=== PATIENT | female | born 1970 | race Caucasian/White ===

== ENCOUNTER 2021-12-10 10:53 | Outpatient (REF) | payer OTHER, SELFPAY ==
--- NOTE | ~2021-12-10 | XR_ITS ---
EXAMINATION: XR FINGER, LEFT finger CLINICAL INFORMATION: Pain in the joints of the left hand COMPARISON: None TECHNIQUE: AP view left hand and 2 additional views of the left index finger. FINDINGS: No evidence for acute bony fracture or dislocation. No distinct erosive process seen. The MCP joints are maintained. There is minimal spurring at the first CMC joint. The IP joints are maintained. Area of prominent calcification identified just ventral to the base of proximal phalanx and the MCP joint of the second digit. Dimensions 1.2 x 0.8 cm. Finding is nonspecific but can be seen with tumoral calcinosis, myositis ossificans, and hyperparathyroidism in the appropriate clinical circumstances. CT evaluation and rheumatologic evaluation may be helpful toward further clarification. XR/XR finger LT min 2V IMPRESSION: No acute fracture or dislocation. Prominent calcification ventral to the base of proximal phalanx and the MCP joint of the second digit. Differential diagnosis as noted above. CT evaluation and rheumatologic evaluation may be helpful toward further clarification.
[2021-12-10 13:56] LABS: MANUAL DIFF FLAG NO
[2021-12-10 14:02] LABS: Basophils Percent Auto 0.5 % (0-2); Eosinophils Absolute Auto 0.1 X10*3/uL (0.0-0.4); Eosinophils Percent Auto 1.1 % (0-4); Hematocrit 41.8 % (37.0-47.0); Imm Gran Abs Auto 0.03 X10*3/uL (0.00-0.03); Imm Gran Pct Auto 0.4 % (0.0-0.4); Lymphocytes Absolute Auto 2.7 X10*3/uL (1.2-4.9); Mean Corpuscular HGB Conc 33.5 g/dl (31.0-35.0); Mean Corpuscular Volume 86.7 fL (80.0-98.0); Mean Platelet Volume 10.9 fL (9.4-12.3); Monocytes Absolute Auto 0.6 X10*3/uL (0.1-1.2); Monocytes Percent Auto 6.8 % (2-11); Neutrophils Absolute Auto 4.6 x10*3/uL (2.0-8.3); Neutrophils Percent Auto 57.2 % (45-73); Platelet Count 250 X10*3/uL (160-400); Red Blood Count 4.82 X10*6/uL (4.20-5.50); Red Cell Distribution Width 12.3 % (11.0-16.0)
[2021-12-10 14:09] LABS: Calcium 9.5 mg/dL (8.4-10.2)
[2021-12-10 14:14] LABS: Uric Acid 4.3 mg/dL (2.4-5.7)
== END 2021-12-10 10:54 | disposition home or self-care (01) ==
LOC: HO.HMGCLDS 10:53
PROVIDERS: PCP Internal Medicine; Visit Provider Physician Assistant
DX: M25.541 Pain in joints of right hand (principal); M77.9 Enthesopathy, unspecified
CPT/HCPCS: 36415; 73140; 82310; 84550; 85025

== ENCOUNTER 2022-05-21 07:02 | Outpatient (REF) | payer BC, SELFPAY ==
[2022-05-21 07:21] LABS: MANUAL DIFF FLAG NO
[2022-05-21 08:06] LABS: Basophils Percent Auto 0.3 % (0-2); Eosinophils Absolute Auto 0.1 X10*3/uL (0.0-0.4); Eosinophils Percent Auto 1.3 % (0-4); Hematocrit 45.4 % (37.0-47.0); Hemoglobin 14.9 g/dl (12.0-16.0); Imm Gran Abs Auto 0.01 X10*3/uL (0.00-0.03); Imm Gran Pct Auto 0.2 % (0.0-0.4); Lymphocytes Absolute Auto 2.6 X10*3/uL (1.2-4.9); Lymphocytes Percent Auto 41.4 % (20-40); Mean Corpuscular HGB Conc 32.8 g/dl (31.0-35.0); Mean Corpuscular Hemoglobin 28.1 pg (27.0-33.0); Mean Corpuscular Volume 85.7 fL (80.0-98.0); Mean Platelet Volume 10.6 fL (9.4-12.3); Monocytes Absolute Auto 0.4 X10*3/uL (0.1-1.2); Monocytes Percent Auto 6.9 % (2-11); Neutrophils Absolute Auto 3.2 x10*3/uL (2.0-8.3); Neutrophils Percent Auto 49.9 % (45-73); Platelet Count 255 X10*3/uL (160-400); White Blood Count 6.4 X10*3/uL (4.8-10.8)
[2022-05-21 09:49] LABS: Alanine Aminotransferase 30 U/L (0-31); Albumin Level 4.4 g/dL (3.5-5.0); Alkaline Phosphatase 74 U/L (39-117); Anion Gap 14 (12-20); Aspartate Amino Transferase 21 U/L (5-31); Bilirubin Total 0.7 mg/dL (0.0-1.0); Blood Urea Nitrogen 9 mg/dL (9-16); Calcium 9.2 mg/dL (8.4-10.2); Carbon Dioxide 26 mmol/L (22-29); Chloride 107 mmol/L (96-108); Cholesterol 163 mg/dL; Estimated Glomerular Filt Rate > 60; Glucose Fasting 82 mg/dL (60-99); HDL Cholesterol 56 mg/dL; LDL Cholesterol Calculated 82 mg/dl; Potassium 4.2 mmol/L (3.3-5.1); Sodium 143 mmol/L (135-145); TSH reflex Free T4 3.07 uIU/mL (0.32-4.0); Total Protein 6.9 g/dL (6.5-8.0); Triglycerides 125 mg/dL
== END 2022-05-21 07:03 | disposition home or self-care (01) ==
LOC: HO.LAB 07:02
PROVIDERS: PCP Internal Medicine; Visit Provider Internal Medicine
DX: Z00.00 Encounter for general adult medical examination without abnormal findings (principal)
CPT/HCPCS: 36415; 80053; 80061; 84443; 85025

== ENCOUNTER → 2022-08-05 11:15 | Outpatient (BNVA) | payer BC, SELFPAY | PROVIDERS: PCP Internal Medicine; Visit Provider Internal Medicine ==

== ENCOUNTER 2022-09-16 14:57 | Outpatient (AMB) | payer BC, SELFPAY ==
--- NOTE | 2022-09-16 14:57 | MHC.OFFVIS ---
Intake Intake Visit Reasons: 6 week fu Intake Note: CC: Bloating still - her regimen she started was even worse. She was having loose stools about 6 times a day. She had to stop taking the Metamucil because it was too much. She had to mandrel puller on the side of the road to vomit because her stomach could not handle it. Allergies acetaminophen [From PERCOCET] Allergy (Unknown, Unverified 09/16/22 14:57) Hives codeine [From Tylenol-Codeine #3] Allergy (Unknown, Unverified 09/16/22 14:57) hives metronidazole [From FLAGYL] Allergy (Unknown, Unverified 09/16/22 14:57) Hives oxycodone [From PERCOCET] Allergy (Unknown, Verified 09/16/22 14:57) Hives Codeine Allergy (Unknown, Uncoded 09/16/22 14:57) Hives HPI HPI Comments History of Present Illness Details 52 y.o F who is here for following issues: 08/05/22: Chronic diarrhea: has had this for almost 20 years. Had a colonoscopy at that time and was told was probably post-CCY diarrhea and was started on cholestyramine. However with cholestyramine she now fluctuates between constipation and diarrhea with occ fecal incontinence. The stool itself is brown but does note occasional red blood on wiping which she surmises is from hemorrhoids. Bloating: For the past 2 months has also been noticing bloating and distention postprandially. Happens with any food including just meat. Assoc with nausea but not vomiting. Has also noticed increased belching with this which is predominantly at nigh time - has to sleep in a reclined position to avoid heartburn. Takes omeprazole 20mg daily in the AM. 09/16/22: Minimal response to Cipro. Diarrhea was also not controlled by loperamide despite taking up to 6 times a day. Went back to cholestyramine after a few days. PFSH Surgical History Hx of cholecystectomy Hx of colonoscopy Social History Housing: Apartment Patient Tobacco Use Status: Never used Tobacco e-Cigarette/Vaping Use: Never Used Current occupational status: employed Cognitive needs: No Hearing needs: No Vision needs: Yes Review of Systems Const All systems reviewed & are unremarkable except as noted in HPI and below Physical Exam video visit: GEn appear: NAD Chest: no overt resp distress Abd: non distended Neuro: Awake alert responding appropriately Assessment & Plan Assessment & Plan (1) Bloating: Code(s): R14.0 - Abdominal distension (gaseous) (2) Diarrhea: Code(s): R19.7 - Diarrhea, unspecified (3) Bright red rectal bleeding: Code(s): K62.5 - Hemorrhage of anus and rectum Plan 1. Chronic nonbloody diarrhea: Ddx include post-CCY diarrhea, malabsorption including SIBO, celiac, IBD, microscopic colitis, chronic infection. Could not tolerate going off cholestyramine. Plan: - Cont cholestyramine - Reminded to get labs done for CBC, CRP, TSH, celiac serology - Will set her up for EGD/colo. Split PEG prep instructions reviewed and a handout will be mailed out as well. 2. Intermittent rectal bleeding: Likely rectal outlet bleeding. Plan: Check CBC, iron levels [place] as above Follow up after scopes. Medications: New peg 3350-electrolytes 236-22.74-6.74 -5.86 gram (Golytely) as per split prep instructions, until fecal effluent is clear 240 mL PO Q10M 4,000 mL 0RF colonoscopy Telehealth Telehealth Location of provider rendering services: practice address Location of patient: address on file Patient Identification confirmed using: Name, : Yes Telehealth method: video Patient verbally consented to treatment: Yes Patient verbally consented to billing insurance company: Yes Patient informed of any privacy concerns related to visit: Yes Minutes spent on Phone/Video with Pt.: 15 Coding Level of Care Code Est Pt Level 4 (26167) Diagnoses Bloating R14.0 Diarrhea R19.7 Bright red rectal bleeding K62.5
== END 2022-09-16 16:02 | disposition home or self-care (01) ==
LOC: HO.HGI 14:57
PROVIDERS: PCP Internal Medicine; Visit Provider Internal Medicine
DX: R14.0 Abdominal distension (gaseous) (principal); R19.7 Diarrhea, unspecified; K62.5 Hemorrhage of anus and rectum
CPT/HCPCS: 99214

== ENCOUNTER → 2022-09-16 14:57 | Outpatient (BNVA) | payer BC, SELFPAY | PROVIDERS: PCP Internal Medicine; Visit Provider Internal Medicine ==

== ENCOUNTER 2022-09-26 07:38 | Outpatient (REF) | payer BC, SELFPAY ==
[2022-09-26 08:05] LABS: Hematocrit 42.9 % (37.0-47.0); Hemoglobin 14.3 g/dl (12.0-16.0); Mean Corpuscular HGB Conc 33.3 g/dl (31.0-35.0); Mean Corpuscular Hemoglobin 29.1 pg (27.0-33.0); Mean Corpuscular Volume 87.2 fL (80.0-98.0); Mean Platelet Volume 10.8 fL (9.4-12.3); Platelet Count 211 X10*3/uL (160-400); Red Blood Count 4.92 X10*6/uL (4.20-5.50); Red Cell Distribution Width 12.1 % (11.0-16.0); White Blood Count 6.1 X10*3/uL (4.8-10.8)
[2022-09-26 11:48] LABS: C Reactive Protein 0.58 mg/dL (< or = 0.50); Iron 103 mcg/dL (30-160); Percent Iron Saturation 35 % (15-50); Total Iron Binding Capacity 293 mcg/dL (228-428); Unsaturated Iron Binding 190 ug/dL
[2022-09-26 12:02] LABS: Ferritin 326 ng/mL (10-250); TSH reflex Free T4 2.74 uIU/mL (0.32-4.0)
[2022-09-30 18:54] LABS: Immunoglobulin A 178 mg/dL (47-310)
[2022-09-30 22:35] LABS: Transglutaminase IgA <1.0 U/mL
== END 2022-09-26 07:39 | disposition home or self-care (01) ==
LOC: HO.LAB 07:38
PROVIDERS: PCP Internal Medicine; Visit Provider Internal Medicine
DX: R19.7 Diarrhea, unspecified (principal); K62.5 Hemorrhage of anus and rectum
CPT/HCPCS: 36415; 82728; 82784; 83540; 84443; 85027; 86140; 86364

== ENCOUNTER 2023-01-06 10:20 | Outpatient (AMB) | payer BC, SELFPAY ==
--- NOTE | 2023-01-06 10:28 | A.OFFPC_ITS ---
Vital Signs 01/06/23 10:32 Height 4 ft 9 in Weight 122 lb BMI 26.4 BP 110/64 Blood Pressure Location Rt brachial Position Sitting Pulse 68 Pulse Source Pulse Oximeter Pulse Oximetry (%) 96 Oxygen Delivery Method Room Air Intake Visit Reasons: Pelvic pain Allergies acetaminophen [From PERCOCET] Allergy (Unknown, Unverified 01/06/23 10:32) Hives codeine [From Tylenol-Codeine #3] Allergy (Unknown, Unverified 01/06/23 10:32) hives metronidazole [From FLAGYL] Allergy (Unknown, Unverified 01/06/23 10:32) Hives oxycodone [From PERCOCET] Allergy (Unknown, Verified 01/06/23 10:32) Hives Codeine Allergy (Unknown, Uncoded 01/06/23 10:32) Hives Medication List - Last Reconciled 01/06/23 by Cher Wallace MD albuterol 90 mcg/actuation mcg inhalation cholestyramine-aspartame 4 gram 4 grams PO DAILY estradiol 1 mg PO DAILY fluticasone propionate 110 mcg/actuation 2 puffs inhalation BID fluticasone propionate 50 mcg/actuation (Flonase Allergy Relief) 1 spray intranasal BID omeprazole 20 mg PO DAILY peg 3350-electrolytes 236-22.74-6.74 -5.86 gram (Golytely) 240 mL PO Q10M Tobacco use date assessed: 04/16/22 HPI Pelvic pain HPI Details Patient complains of pubic bone and right groin pain on and off for few weeks worse when walking longer distance. Patient denies abdominal pain change in bowel habits or urination, fever chills dysuria. She has colonoscopy scheduled for beginning of January. Patient denies any injury. Follows up with brake reliner for left knee osteoarthritis. PFSH Surgical History Hx of cholecystectomy Hx of colonoscopy Social History Housing: Apartment Patient Tobacco Use Status: Never used Tobacco e-Cigarette/Vaping Use: Never Used Current occupational status: employed Cognitive needs: No Hearing needs: No Vision needs: Yes Questionnaire Thrive Questionnaire Date Thrive assessed: 04/16/22 TAMIA-7 AMB Questionnaire TAMIA-7 Date TAMIA - 7 assessed: 04/16/22 Source: Developed by Drs. Niles Rashid, Precious Saenz, Emir Goetz and colleagues, with an educational tom from [employer]. Review of Systems Const All systems reviewed & are unremarkable except as noted in HPI and below Reports no additional complaints Eyes Reports no additional complaints ENT Reports no additional complaints Card Reports no additional complaints Resp Reports no additional complaints GI Reports no additional complaints Reports no additional complaints Physical exam (Primary Care) Vital Signs: Last Vital Signs Pulse 68 01/06/23 10:32 BP 110/64 01/06/23 10:32 Pulse Ox 96 01/06/23 10:32 Oxygen Delivery Method Room Air 01/06/23 10:32 BMI result Body Mass Index 26.4 Tobacco/Smoking Status: Tobacco use Status Tobacco use date assessed 04/16/22 01/06/23 10:32 Patient Tobacco Use Status Never used Tobacco 01/06/23 10:32 e-Cigarette/Vaping Use Never Used 01/06/23 10:32 Thrive Assessment: Date of Thrive Assessment Date Thrive assessed 04/16/22 01/06/23 10:32 Const General: no acute distress Resp Auscultation: clear to auscultation bilaterally Cardio Rhythm: regular rhythm Heart sounds: S1 normal heart sound present and S2 normal heart sound present Back/Spine/Pelvis Other: There is slight tenderness over pubic bone and decreased range of motion in both hips, right more than left, straight leg rising 90 degrees bilaterally Assessment and Plan Assessment & Plan (1) Hip pain, right: Code(s): M25.551 - Pain in right hip Plan: Check x-rays of both hips and pubic bone and PT was recommended but patient declined Orders: Orders XR hip BI w PEL1V Today M25.551 - Pain in right hip Coding Level of Care Code Est Pt Level 3 (26092) Diagnoses Hip pain, right M25.551
[2023-01-06 10:32] VITALS: BP 110/64; PULSE 68; O2SAT 96; BMI 26.4
== END 2023-01-06 11:22 | disposition home or self-care (01) ==
PROVIDERS: PCP Internal Medicine; Visit Provider Internal Medicine
DX: M25.551 Pain in right hip (principal)
CPT/HCPCS: 99213

== ENCOUNTER 2023-01-06 11:02 | Outpatient (REF) | payer BC, SELFPAY ==
--- NOTE | ~2023-01-06 | XR_ITS ---
EXAMINATION: XR BILATERAL HIPS WITH AP PELVIS CLINICAL INFORMATION: Right hip pain. COMPARISON: None available. TECHNIQUE: AP view of the pelvis and AP and frog lateral views of the bilateral hips were obtained. FINDINGS: No fracture. Hip joint spaces are maintained. Alignment is anatomic. Sacroiliac joints and pubic symphysis are normal. No abnormal soft tissue calcifications. There are pelvic phleboliths. XR/XR hip BI w PEL1V IMPRESSION: Normal pelvis and hips.
== END 2023-01-06 11:03 | disposition home or self-care (01) ==
LOC: HO.HMGCX 11:02
PROVIDERS: PCP Internal Medicine; Visit Provider Internal Medicine
DX: M25.551 Pain in right hip (principal)
CPT/HCPCS: 73521

== ENCOUNTER 2023-01-28 12:10 | Day surgery (SDC) | payer BC, SELFPAY ==
[2023-01-24 11:57] VITALS: BMI 26.4
[2023-01-28 12:22] VITALS: BMI 25.8
[2023-01-28] MEDS: Lactated Ringers 1,000 ML 100 ML IVCONT (12:46)
[2023-01-28 12:47] VITALS: BP 118/71; PULSE 84; RESP 16; TEMP 36.4; O2SAT 99
--- NOTE | 2023-01-28 13:18 | MHC.SHP ---
Pre-Procedural Eval Section A Date of Service: 01/28/23 The patient is an INPATIENT: No The History & Physical has been completed within 30 days and I have reviewed it.: No Section B Chief Complaint: rectal bleeding,diarrhea,abd bloating Relevant Family History (Specify if Yes): No Relevant Social History: None Present Medications: see Short Stay Collaborative assessment Medical History: Significant History (GERD, asthma, rectal bleeding) History of Previous Operations: Relevant previous surgery/procedure and date(s) (Hx of cholecystectomy Hx of colonoscopy) Allergies: Allergies Allergy/AdvReac Type Severity Reaction Status Date / Time codeine Allergy Intermediate hives Verified 01/28/23 12:44 [From Tylenol-Codeine #3] metronidazole [From FLAGYL] Allergy Intermediate Hives Verified 01/28/23 12:45 oxycodone [From PERCOCET] Allergy Intermediate Hives Verified 01/24/23 11:59 Codeine Allergy Intermediate Hives Uncoded 01/24/23 11:59 Review of Systems Sugical H&P ROS: Negative: Constitution, Cardiovascular, Respiratory and Gastrointestinal Exam Surgical H&P Exam: Normal: Heart, Normal: Lungs, Normal: Extremities and Normal: Abdomen Plan Diagnosis/Plan: Unchanged I have reviewed the history and physical and performed a pertinent physical examination on my patient. No changes have occurred unless specified. Time Spent With Patient Time: Total time managing care of this patient today ____ minutes.
--- NOTE | 2023-01-28 14:10 | HO.ANESPROP2 ---
Documented by User: Charlotte Becerra NP 01/27/23 11:46 HPI - Anesthesia Eval Consult details Narrative: 52yo F for Upper Endoscopy and Colonoscopy PMFSH Active Problems Active Problems: All Active Problems (Updated 01/24/23 @ 11:55 by Natalie Carlton RN) Pelvic pain (Acute) Hip pain, right (Acute) GERD (gastroesophageal reflux disease) (Acute) Bloating (Acute) Bright red rectal bleeding (Acute) Diarrhea (Acute) Asthma (Acute) Annual physical exam (Acute) Viral syndrome (Acute) Past Medical History Medical History Asthma GERD (gastroesophageal reflux disease) Surgical History Surgical History Hx of cholecystectomy Hx of colonoscopy Social History Social History Housing: Apartment Patient Tobacco Use Status: Never used Tobacco e-Cigarette/Vaping Use: Never Used Use of substances other than those prescribed or required for medical reasons: No Are you DNR?: No Advance Directives: No Advance Directives Information Provided: Yes Patient : No (Hysterectomy) Current occupational status: employed Cognitive needs: No Hearing needs: No Vision needs: Yes Meds Allergies Allergy/AdvReac Type Severity Reaction Status Date / Time codeine Allergy Intermediate hives Verified 01/28/23 12:44 [From Tylenol-Codeine #3] metronidazole [From FLAGYL] Allergy Intermediate Hives Verified 01/28/23 12:45 oxycodone [From PERCOCET] Allergy Intermediate Hives Verified 01/24/23 11:59 Codeine Allergy Intermediate Hives Uncoded 01/24/23 11:59 Home Medications Medication Instructions Recorded Confirmed Last Taken Type estradiol 1 mg tablet 1 mg PO DAILY 08/05/22 01/24/23 Unknown History albuterol 90 mcg/actuation aerosol 90 mcg inhalation Q4H PRN Wheezing 01/06/23 01/24/23 Unknown History inhaler Exam Height,Weight and Vital Signs: Height 4 ft 9 in Weight 55.338 kg Assessment and Plan Assessment Anesthesia Assessment: Chart Reviewed Documented by User: Maggy Cummins DO 01/28/23 14:33 PMFSH Past Medical History Medical History Asthma GERD (gastroesophageal reflux disease) Surgical History Surgical History Hx of cholecystectomy Hx of colonoscopy History of Problems with Anesthesia: No Social History Social History Housing: Apartment Patient Tobacco Use Status: Never used Tobacco e-Cigarette/Vaping Use: Never Used Use of substances other than those prescribed or required for medical reasons: No Are you DNR?: No Advance Directives: No Advance Directives Information Provided: Yes Patient : No (Hysterectomy) Current occupational status: employed Cognitive needs: No Hearing needs: No Vision needs: Yes Meds Allergies Allergy/AdvReac Type Severity Reaction Status Date / Time codeine Allergy Intermediate hives Verified 01/28/23 12:44 [From Tylenol-Codeine #3] metronidazole [From FLAGYL] Allergy Intermediate Hives Verified 01/28/23 12:45 oxycodone [From PERCOCET] Allergy Intermediate Hives Verified 01/24/23 11:59 Codeine Allergy Intermediate Hives Uncoded 01/24/23 11:59 Home Medications Medication Instructions Recorded Confirmed Last Taken Type estradiol 1 mg tablet 1 mg PO DAILY 08/05/22 01/24/23 Unknown History albuterol 90 mcg/actuation aerosol 90 mcg inhalation Q4H PRN Wheezing 01/06/23 01/24/23 Unknown History inhaler Exam Exam Date and Time: January 28, 2023 1410 Height,Weight and Vital Signs: Height 4 ft 9 in Weight 55.338 kg Vital Signs Temperature 97.5 F 01/28/23 12:47 Pulse Rate 84 01/28/23 12:47 Respiratory Rate 16 01/28/23 12:47 Blood Pressure 118/71 01/28/23 12:47 Pulse Oximetry 99 01/28/23 12:47 Oxygen Delivery Method Room Air 01/28/23 12:47 Temperature 97.5 F 01/28/23 12:47 Pulse Rate 84 01/28/23 12:47 Respiratory Rate 16 01/28/23 12:47 Blood Pressure 118/71 01/28/23 12:47 Pulse Oximetry 99 01/28/23 12:47 Oxygen Delivery Method Room Air 01/28/23 12:47 Airway Mallampati Class: I TM Dist: >3cm Neck ROM: Full Loose/Missing/Broken Teeth: No Heart: S1S2 Lungs: CTAB Assessment and Plan Assessment Anesthesia Assessment: Anesthesia Plan Discussed and Chart Reviewed Final Anesthetic Review History of Problems with Anesthesia: No NPO: Yes ASA Class: II Final Preanesthetic Review: No Changes in Pt Med Stat, Meds/Allgs Chart Reviewed, Consent Obtained/Reviewed and Anes Risks/Benef Reviewed Patient Risk: Low Procedure Risk: Low Anesthetic Plan Anesthetic Plan: MAC: and Agree w/ Assess. and Plan Disposition: Standard PACU
--- NOTE | 2023-01-28 14:17 | W.PM.OPN ---
Operative Note Operative Note Date of Service: 01/28/23 Narrative: FLEXIBLE TRANSORAL UPPER GASTROINTESTINAL ENDOSCOPY WITH BIOPSIES AND COLONOSCOPY TILL CECUM WITH BIOPSIES AND SNARE POLYPECTOMY Pre-op diagnosis: Chronic diarrhea, abdominal bloating and rectal bleeding Post-op diagnosis: Gastritis, colon polyp, diverticulosis, hemorrhoids? Endoscopist:? Sanam Caba MD Anesthesia:?MAC UPPER ENDOSCOPY Consent: Indications for the procedure and potential complications of bleeding, perforation, reaction to medications and missed diagnosis were discussed with the patient and informed consent was obtained. Instrument: Olympus GIF H 190 mid size upper endoscope Monitoring: Vital signs and clinical assessment, continuous EKG monitoring, Pulse oximetry, Carbon Dioxide monitoring and blood pressure monitoring were done throughout the procedure. Procedure: The patient was placed in the left lateral decubitis position and pre-procedure medications were administered and a bite block was placed. The endoscope was inserted into the mouth and advanced under direct vision to the third part of duodenum. A careful inspection was made as the upper endoscope was withdrawn including a retroflexed examination of the proximal stomach; Findings and interventions are described below. Findings: Larynx: Normal Esophagus: GE junction at 32 cms. No esophagitis or Ferrera's. Stomach: Linear streaks of erythema in the gastric antrum. Biopsies were obtained. Grade 2 flap valve on retroflexed examination of the cardia. Duodenum: Normal bulb and descending duodenum. Biopsies were obtained from 3rd part of duodenum to check for celiac sprue Intervention: Biopsies as noted above COLONOSCOPY PROCEDURE NOTE Consent: Indications for the procedure and potential complications of bleeding, perforation, reaction to medications and missed diagnosis were discussed with the patient and informed consent was obtained. Instrument: Olympus PCF H 190 L variable stiffness pediatric colonoscope Monitoring: Vital signs and clinical assessment, intermittent blood pressure monitoring, continuous EKG monitoring, Pulse oximetry and Carbon Dioxide monitoring were done throughout the procedure. Colon withdrawl time was 12 minutes. Procedure: The patient was placed in the left lateral decubitis position and pre-procedure medications were administered. After a digital rectal examination of the ano-rectum, the video colonoscope was inserted into the rectum and advanced through the colon to the cecum. The colonoscope was slowly withdrawn in a retrograde panoramic fashion and the colon mucosa was carefully examined including a retroflexed view of the rectum. Findings and interventions are described below. Procedure Difficulty: : Without difficulty Findings: Terminal Ileum: multiple attempts to intubate the TI were unsuccessful Cecum: A 3-4 mm sessile polyp - removed with a cold snare Ascending Colon: Normal Transverse Colon: Normal Descending Colon: Normal Sigmoid Colon: Moderate diverticulosis Rectum: Normal Ano-rectum: Moderate internal hemorrhoids Colon preparation: Good Impression and Post Procedure Diagnosis: Endoscopy Findings: STOMACH: Linear streaks of erythema in the gastric antrum. Biopsies were obtained. DUODENUM: Normal - biopsied to check for celiac sprue Colonoscopy Findings: One small polyp removed Random biopsies were obtained from the right and left colon to check for microscopic colitis Moderate diverticulosis seen in the sigmoid colon Moderate hemorrhoids on retroflexed exam - likely source of rectal bleeding. Plan: Await pathology results Patient has an appointment on 02/14/23 in the [facility] with Sanam Caba M.D.. Repeat Colonoscopy interval based on path results - in 5 years if polyps are adenomatous and 10 years if polyps are hyperplastic. Above findings were reviewed with the patient and Gastritis, colon polyps and diverticulosis handouts were given in the discharge area BIOPSIES SHOWED: A. Small bowel, biopsy: Duodenal mucosa within normal limits; negative for celiac disease. B. Stomach, antrum, biopsy: Antral-type and oxyntic mucosa with mild chronic inactive inflammation; no Helicobacter organisms seen. C. Cecum, polypectomy: Colonic mucosa with prominent lymphoid aggregate. D. Colon, right, biopsy: Colonic mucosa within normal limits; negative for microscopic colitis. E. Colon, left, biopsy: Colonic mucosa within normal limits; negative for microscopic colitis
[2023-01-28 14:51] VITALS: BP 96/47; PULSE 92; RESP 13; TEMP 36.6; O2SAT 95
[2023-01-28 15:06] VITALS: BP 115/68; PULSE 86; RESP 16; TEMP 36.6; O2SAT 97
== END 2023-01-28 15:23 | disposition home or self-care (01) ==
PROVIDERS: PCP Internal Medicine; Visit Provider Internal Medicine Gastroenterology
PROC: (CPT 45385; principal; 2023-01-28 13:40)
DX: K62.5 Hemorrhage of anus and rectum (principal); K63.5 Polyp of colon; K57.30 Diverticulosis of large intestine without perforation or abscess without bleeding; K64.8 Other hemorrhoids; R19.7 Diarrhea, unspecified; K29.50 Unspecified chronic gastritis without bleeding; K21.9 Gastro-esophageal reflux disease without esophagitis; J45.909 Unspecified asthma, uncomplicated; Z88.5 Allergy status to narcotic agent; Z79.899 Other long term (current) drug therapy; Z79.51 Long term (current) use of inhaled steroids
CPT/HCPCS: 45385; 45380; 43239; 88305; 88342; J2704

== ENCOUNTER → 2023-01-28 12:10 | Outpatient (BNV) | payer BC, SELFPAY | PROVIDERS: PCP Internal Medicine; Visit Provider Internal Medicine Gastroenterology | DX: K52.9 Noninfective gastroenteritis and colitis, unspecified (principal); K62.5 Hemorrhage of anus and rectum; K29.70 Gastritis, unspecified, without bleeding; K57.30 Diverticulosis of large intestine without perforation or abscess without bleeding; K64.8 Other hemorrhoids; K31.7 Polyp of stomach and duodenum; D12.0 Benign neoplasm of cecum | CPT/HCPCS: 43239; 45385 ==

== ENCOUNTER 2023-02-14 07:24 | Outpatient (REF) | payer BC, SELFPAY | END 2023-02-14 07:25 | disposition home or self-care (01) | LOC: HO.LAB 07:24 | PROVIDERS: PCP Internal Medicine; Visit Provider Internal Medicine Gastroenterology | DX: Z13.89 Encounter for screening for other disorder (principal) ==

== ENCOUNTER 2023-02-14 07:24 | Outpatient (AMB) | payer BC, SELFPAY ==
--- NOTE | 2023-02-14 07:31 | A.OFFVIS_ITS ---
Vital Signs 02/14/23 07:36 Height 4 ft 9 in Weight 119 lb BMI 25.7 BP 94/61 Blood Pressure Location Lt brachial Position Sitting Pulse 75 Intake Visit Reasons: S/p egd/colon elpidio pt. Intake Note: Dr Styles Patient is following up for Endoscopy and Colonoscopy results. Patient cc: abdominal bloating with abdominal pain when she is constipated,and bloody, itchy hemorrhoids also with constipation. 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 Accompanied by: Self / Same As Patient Allergies codeine [From Tylenol-Codeine #3] Allergy (Intermediate, Verified 05/20/23 14:14) hives metronidazole [From FLAGYL] Allergy (Intermediate, Verified 05/20/23 14:14) Hives oxycodone [From PERCOCET] Allergy (Intermediate, Verified 05/20/23 14:14) Hives Codeine Allergy (Intermediate, Uncoded 05/20/23 14:14) Hives Medication List - Last Reconciled 02/14/23 by Sanam Caba MD albuterol 90 mcg/actuation 90 mcg inhalation Q4H PRN cholestyramine-aspartame 4 gram 4 grams PO DAILY estradiol 1 mg PO DAILY fluticasone propionate 110 mcg/actuation 2 puffs inhalation BID fluticasone propionate 50 mcg/actuation (Flonase Allergy Relief) 1 spray intranasal BID meloxicam 15 mg PO DAILY omeprazole 20 mg PO DAILY HPI HPI S/p egd/colon elpidio pt.: Details: GI clinic visit for this 52 YF for follow-up of chronic diarrhea to discuss EGD and colonoscopy results LABS IN [facility] : Reviewed - normal CBC and Chem panel, CRP 0.58, celiac serologies were negative IMAGING STUDIES: No recent GI imaging studies ENDOSCOPIC STUDIES: 01/28/23 EGD AND COLONOSCOPY SHOWED: Endoscopy Findings: STOMACH: Linear streaks of erythema in the gastric antrum. Biopsies were obtained. DUODENUM: Normal - biopsied to check for celiac sprue Colonoscopy Findings: One small polyp removed Random biopsies were obtained from the right and left colon to check for microscopic colitis Moderate diverticulosis seen in the sigmoid colon Moderate hemorrhoids on retroflexed exam - likely source of rectal bleeding. Plan: Repeat Colonoscopy interval based on path results - in 5 years if polyps are adenomatous and 10 years if polyps are hyperplastic. Above findings were reviewed with the patient and Gastritis, colon polyps and diverticulosis handouts were given in the discharge area BIOPSIES SHOWED: A. Small bowel, biopsy: Duodenal mucosa within normal limits; negative for celiac disease. B. Stomach, antrum, biopsy: Antral-type and oxyntic mucosa with mild chronic inactive inflammation; no Helicobacter organisms seen. C. Cecum, polypectomy: Colonic mucosa with prominent lymphoid aggregate. D. Colon, right, biopsy: Colonic mucosa within normal limits; negative for microscopic colitis. E. Colon, left, biopsy: Colonic mucosa within normal limits; negative for microscopic colitis TODAY'S VISIT: Patient follow up for Endoscopy and Colonoscopy results. Patient cc: abdominal bloating with abdominal pain when she is constipated,and bloody, itchy hemorrhoids also with constipation. EGD and colon results reviewed with the patient. BMs varies between diarrhea and constipation Notes bloating when she is constipated Can go 2-3 days without a BM. IF she does not take cholestyramine she has post prandial diarrhea and unable to eat anything Taking Cholestyramine 1 packet Skips it on the weekends (if she is not going out) and gets cleaned out. Pt notes, she had diarrhea after Lap jaqueline 20 years ago. Intentional wt loss of 7 lbs in 1.5 months Tried metamucil and Loperamide and was going to the bathroom way too much Patient gives a history of lactose intolerance and takes Lactaid milk and Lactaid ice cream. Heartburn is controlled with Omeprazole and avoids spicy or greasy foods Patient denies symptoms of dysphagia, vomiting, change in appetite. Denies black stools. Intermittent rectal bleeding when she is constipated - itching and bleeding Uses preparation H prn. Patient denies major cardiac or pulmonary problems, loud snoring or sleep apnea Denies problems with anesthesia in the past. Denies being on chronic anticoagulation. Patient denies known family history of colon polyps, colon cancer or other GI malignancies. PAST GI HISTORY BY REVIEW OF MEDICAL RECORDS: 08/2022 PATIENT WAS SEEN IN THE GI CLINIC BY DR. STYLES: Chronic diarrhea: has had this for almost 20 years. Had a colonoscopy at that time and was told was probably post-CCY diarrhea and was started on cholestyramine. However with cholestyramine she now fluctuates between constipation and diarrhea with occ fecal incontinence. The stool itself is brown but does note occasional red blood on wiping which she surmises is from hemorrhoids. Bloating: For the past 2 months has also been noticing bloating and distention postprandially. Happens with any food including just meat. Assoc with nausea but not vomiting. Has also noticed increased belching with this which is predominantly at nigh time - has to sleep in a reclined position to avoid heartburn. Takes omeprazole 20mg daily in the AM. 09/16/22: Minimal response to Cipro. Diarrhea was also not controlled by loperamide despite taking up to 6 times a day. Went back to cholestyramine after a few days. Plan 1. Chronic nonbloody diarrhea: Ddx include post-CCY diarrhea, malabsorption including SIBO, celiac, IBD, microscopic colitis, chronic infection. Could not tolerate going off jaqueline styramine. Plan: - Cont cholestyramine - Reminded to get labs done for CBC, CRP, TSH, celiac serology - Will set her up for EGD/colo. Split PEG prep instructions reviewed and a handout will be mailed out as well. 2. Intermittent rectal bleeding: Likely rectal outlet bleeding. Plan: Check CBC, iron levels [place] as above PFSH Medical History Asthma GERD (gastroesophageal reflux disease) Surgical History H/O total hysterectomy (~2004) Hx of endoscopy Hx of cholecystectomy Hx of colonoscopy Family History Father Diabetes Hypertension Mother Hypertension COPD (chronic obstructive pulmonary disease) Mental health disorder Social History Housing: Apartment Patient Tobacco Use Status: Never used Tobacco e-Cigarette/Vaping Use: Never Used Current occupational status: employed Cognitive needs: No Hearing needs: No Vision needs: Yes Review of Systems Const All systems reviewed & are unremarkable except as noted in HPI and below Physical Exam Vital Signs: Last Vital Signs Pulse 75 02/14/23 07:36 BP 94/61 02/14/23 07:36 BMI result Body Mass Index 25.7 Const Other: Gen appear: NAD, well nourished HEENT: no icterus, no cervical lymphadenopathy Chest: clear to auscultation CVS: Regular S1/S2 Abd: soft, nontender, nondistended Ext: no peripheral edema Neuro: A/Ox3, noted to move all extremities spontaneously Assessment & Plan Assessment & Plan (1) Diarrhea: Comment: Controlled on cholestyramine, normal colonoscopy January 2023 Code(s): R19.7 - Diarrhea, unspecified Category: Medical Plan 52 YF for follow-up of chronic diarrhea No source of diarrhea found on EGD and Colon 02/14/23 EGD and colon results reviewed with the patient. BMs varies between diarrhea and constipation Notes bloating when she is constipated Can go 2-3 days without a BM. IF she does not take cholestyramine she has post prandial diarrhea and unable to eat anything Taking Cholestyramine 1 packet Skips it on the weekends (if she is not going out) and gets cleaned out. Pt notes, she had diarrhea after Lap jaqueline 20 years ago. Intentional wt loss of 7 lbs in 1.5 months Tried metamucil and Loperamide and was going to the bathroom way too much Patient gives a history of lactose intolerance and takes Lactaid milk and Lactaid ice cream. Pt was advised stool studies to rule out pancreatic insufficiency and IBD FU in 3 months Orders: Orders Pancreatic Elastase-1 02/14/23 R19.7 - Diarrhea, unspecified Calprotectin, Fecal 02/14/23 R19.7 - Diarrhea, unspecified Medications: New colestipol 5 grams PO DAILY 30 ea 0RF 30 days Coding Level of Care Code Est Pt Level 4 (27383) Diagnoses Diarrhea R19.7 Time Spent (min) 22
[2023-02-14 07:36] VITALS: BP 94/61; PULSE 75; BMI 25.7
== END 2023-02-14 08:07 | disposition home or self-care (01) ==
PROVIDERS: PCP Internal Medicine; Visit Provider Internal Medicine Gastroenterology
DX: R19.7 Diarrhea, unspecified (principal)
CPT/HCPCS: 99499

== ENCOUNTER 2023-03-26 07:56 | Outpatient (AMB) | payer BC, SELFPAY ==
--- NOTE | 2023-03-26 08:09 | MHC.OFFVIS ---
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 Pt states this started months ago but a few weeks ago the pain got worse. Pt denies any injury to the area. She states the pain radiates to her hips. Pt states she has tried aleve and ibuprofen with no relief. 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 She states she has worsening pain at the pelvis region which radiates down to her bilateral hips. Her pain is aggravated with exercises, stair use, prolonged ambulation and prolonged standing. She also c/o limping with overuse and numbness at the lower back and buttock region. She finds no relief with ibuprofen or Aleve. She takes meloxicam as needed with mild relief. She denies any previous injury and has not had physical therapy in the past. [facility] Medical History (Updated 03/26/23 @ 08:40 by Vijaya Carvajal PA-C) Asthma GERD (gastroesophageal reflux disease) Surgical History (Updated 03/26/23 @ 08:11 by Carmina Davila MA) H/O total hysterectomy (~2004) Hx of endoscopy Hx of cholecystectomy Hx of colonoscopy Social History Housing: Apartment Patient Tobacco Use Status: Never used Tobacco e-Cigarette/Vaping Use: Never Used Current occupational status: employed Cognitive needs: No Hearing needs: No Vision needs: Yes Review of Systems Const All systems reviewed & are unremarkable except as noted in HPI and below Physical Exam Const General: cooperative, healthy appearing, comfortable, no acute distress, well developed and alert Orientation/consciousness: patient oriented x3 HEENT Head: Yes normal to inspection, Yes normocephalic and Yes atraumatic Eyes General: appearance normal, both eyes and all related structures Resp Effort & Inspection: normal respiratory effort and able to speak in complete sentences Cardio Rate: regular rate Peripheral pulses: Peripheral pulses 2+ throughout GI Palpation (GI): Soft to palpation Skin Lesions: no lesions Rashes: no rashes Neuro General: patient oriented x3 Extrem Other: Bilateral hip: Normal to inspection. No pain with ROM of hip. No discomfort with hip flexion however she does have bilateral discomfort with hip flexion against resistance on left when compared to the contralateral side. She has discomfort with bilateral abduction against resistance. Positive pain with SLR bilaterally. Results Reviewed Results Reviewed: xrays of pelvis from 01/05/23 show mild sclerosis with osteophyte Assessment & Plan Assessment & Plan (1) Psoas tendinitis of both sides: Code(s): M76.11 - Psoas tendinitis, right hip; M76.12 - Psoas tendinitis, left hip (2) Tendonitis of left hip flexor: Code(s): M76.892 - Other specified enthesopathies of left lower limb, excluding foot (3) Tendonitis of right hip flexor: Code(s): M76.891 - Other specified enthesopathies of right lower limb, excluding foot Plan We discussed options which include physical therapy to focus on posterior chain stabilization and core stabilization. She will continue to take meloxicam for another 2 weeks to see if her pain reaches till baseline. She will see us back in 6 weeks if she still continues to experience her discomfort and pain to discuss other treatment options. She is content with this plan and will follow-up as needed. Orders: Orders PT Evaluation and Treatment Today M76.11 - Psoas tendinitis, right hip, M76.12 - Psoas tendinitis, left hip, M76.891 - Other specified enthesopathies of right lower limb, excluding foot, M76.892 - Other specified enthesopathies of left lower limb, excluding foot Patient Instructions: Scribed for Vijaya Carvajal PA-C, by Ghulam Jorgensen director of medical staff services, on 03/26/2023 at 8:00 AM PRIETO. IVijaya PA-C, have personally reviewed and agree with the information entered by the scribe. Coding Level of Care Code New Pt Level 3 (62943) Diagnoses Psoas tendinitis of both sides M76.11; M76.12 Tendonitis of left hip flexor M76.892 Tendonitis of right hip flexor M76.891
== END 2023-03-26 08:41 | disposition home or self-care (01) ==
PROVIDERS: PCP Internal Medicine; Visit Provider Physician Assistant
DX: M76.11 Psoas tendinitis, right hip (principal); M76.12 Psoas tendinitis, left hip; M76.892 Other specified enthesopathies of left lower limb, excluding foot; M76.891 Other specified enthesopathies of right lower limb, excluding foot
CPT/HCPCS: 99203

== ENCOUNTER → 2023-03-26 07:56 | Outpatient (BNVA) | payer BC, SELFPAY | PROVIDERS: PCP Internal Medicine; Visit Provider Physician Assistant ==

== ENCOUNTER 2023-05-20 13:59 | Outpatient (AMB) | payer BC, SELFPAY ==
[2023-05-20 14:13] VITALS: BP 100/66; PULSE 71; O2SAT 99; BMI 26.4
--- NOTE | 2023-05-20 14:13 | MHC.PC.OV ---
Vital Signs 05/20/23 14:13 Height 4 ft 9 in Weight 122 lb BMI 26.4 BP 100/66 Blood Pressure Location Rt brachial Position Sitting Pulse 71 Pulse Source Pulse Oximeter Pulse Oximetry (%) 99 Oxygen Delivery Method Room Air Intake Visit Reasons: Physical exam Intake Note: Pt is here today for PE. Allergies codeine [From Tylenol-Codeine #3] Allergy (Intermediate, Verified 05/20/23 14:14) hives metronidazole [From FLAGYL] Allergy (Intermediate, Verified 05/20/23 14:14) Hives oxycodone [From PERCOCET] Allergy (Intermediate, Verified 05/20/23 14:14) Hives Codeine Allergy (Intermediate, Uncoded 05/20/23 14:14) Hives Medication List - Last Reconciled 05/20/23 by Cher Wallace MD albuterol sulfate 90 mcg/actuation 2 inhalations inhalation Q6-8H PRN cholestyramine-aspartame 4 gram 4 grams PO DAILY estradiol 1 mg PO DAILY fluticasone propionate 50 mcg/actuation (Flonase Allergy Relief) 1 spray intranasal BID meloxicam 15 mg PO DAILY omeprazole 20 mg PO DAILY Tobacco use date assessed: 05/20/23 Dental Screening Dental Screen Date: 05/20/23 Did you have a dental visit in the last 12 months?: Yes Did you have a dental problem in the last 6 months where you did not have access to dental care?: No Was dental information given to patient?: Patient has dentist HPI Physical exam HPI Details Patient presents for PE. PFSH Medical History Asthma GERD (gastroesophageal reflux disease) Surgical History H/O total hysterectomy (~2004) Hx of endoscopy Hx of cholecystectomy Hx of colonoscopy Family History Father Diabetes Hypertension Mother Hypertension COPD (chronic obstructive pulmonary disease) Mental health disorder Social History Housing: Apartment Patient Tobacco Use Status: Never used Tobacco e-Cigarette/Vaping Use: Never Used Current occupational status: employed Cognitive needs: No Hearing needs: No Vision needs: Yes Questionnaire Thrive Questionnaire Date Thrive assessed: 04/16/22 I am a: Patient What is your living situation today?: I have a steady place to live Within the past 12 months, did the food you bought not last and you didn't have the money to get more?: Never true Within the past 12 months, did you worry whether your food would run out before you got money to buy more?: Never true Please select the resources that you would like help with: None THRIVE Score: 0 AUDIT C Alcohol Use Questionnaire (AUDIT-C) 1. How often do you have a drink containing alcohol?: Monthly or less 2. How many drinks containing alcohol do you have on a typical day when you are drinking?: 1 or 2 3. How often do you have six or more drinks on one occasion?: Never Total Score: 1 TAMIA-7 AMB Questionnaire TAMIA-7 Date TAMIA - 7 assessed: 04/16/22 Feeling nervous, anxious, or on edge: 1 = Several days Not being able to stop or control worryin = More than half the days Worrying too much about different things: 1 = Several days Trouble relaxin = Several days Being so restless that it is hard to sit still: 0 = Not at all Becoming easily annoyed or irritable: 1 = Several days Feeling afraid as if something awful might happen: 0 = Not at all Total TAMIA-7 score (0-4 normal; 5-9 mild; 10-14 moderate; 15-21 severe): 6 Source: Developed by Drs. Niles Rashid, Precious Saenz, Emir Goetz and colleagues, with an educational tom from [employer]. Review of Systems Const All systems reviewed & are unremarkable except as noted in HPI and below Reports no additional complaints Eyes Reports no additional complaints ENT Reports no additional complaints Card Reports no additional complaints Resp Reports no additional complaints GI Reports no additional complaints Reports no additional complaints Musc Reports no additional complaints Neuro Reports no additional complaints Physical exam (Primary Care) Vital Signs: Last Vital Signs Pulse 71 05/20/23 14:13 BP 100/66 05/20/23 14:13 Pulse Ox 99 05/20/23 14:13 Oxygen Delivery Method Room Air 05/20/23 14:13 BMI result Body Mass Index 26.4 Tobacco/Smoking Status: Tobacco use Status Tobacco use date assessed 05/20/23 05/20/23 14:14 Patient Tobacco Use Status Never used Tobacco 05/20/23 14:14 e-Cigarette/Vaping Use Never Used 05/20/23 14:14 Thrive Assessment: Date of Thrive Assessment Date Thrive assessed 04/16/22 05/20/23 14:14 Const General: no acute distress HENMT Head: Yes normal to inspection Ears: hearing grossly normal bilaterally Face and sinus: Yes normal facial exam Eyes General: appearance normal, both eyes and all related structures Neck Neck: Yes no lymphadenopathy and Yes supple Resp Effort & Inspection: normal respiratory effort Auscultation: clear to auscultation bilaterally Cardio Rhythm: regular rhythm Heart sounds: S1 normal heart sound present and S2 normal heart sound present GI Inspection: Yes normal to inspection Palpation (GI): Soft to palpation Percussion: Yes normal to percussion Auscultation: normal bowel sounds Assessment and Plan Assessment & Plan (1) Annual physical exam: Code(s): Z00.00 - Encounter for general adult medical examination without abnormal findings Plan: Well-balanced diet and regular physical activity discussed with the patient she will return for fasting blood work. Patient is up-to-date with mammogram colonoscopy and had hysterectomy (2) Asthma: Code(s): J45.909 - Unspecified asthma, uncomplicated Plan: Start Arnuity Ellipts 100 mcg instead of Flovent which is not available (3) Diarrhea: Comment: Controlled on cholestyramine, normal colonoscopy January 2023 Code(s): R19.7 - Diarrhea, unspecified Orders: Orders Comprehensive [place]. Panel Fast Today Z00.00 - Encounter for general adult medical examination without abnormal findings Complete Blood Count Auto Diff Today Z00.00 - Encounter for general adult medical examination without abnormal findings Lipid Panel Today Z00.00 - Encounter for general adult medical examination without abnormal findings TSH reflex Free T4 Today Z00.00 - Encounter for general adult medical examination without abnormal findings UA w Microscopic Today Z00.00 - Encounter for general adult medical examination without abnormal findings Medications: New Arnuity Ellipta 100 mcg/actuation (fluticasone furoate) 1 inh inhalation DAILY 30 ea 5RF NS Coding Level of Care Code Est Pt Prev Care 40-64y(22845) Diagnoses Annual physical exam Z00.00 Asthma J45.909 Diarrhea R19.7
== END 2023-05-20 15:14 | disposition home or self-care (01) ==
PROVIDERS: PCP Internal Medicine; Visit Provider Internal Medicine
DX: Z00.00 Encounter for general adult medical examination without abnormal findings (principal); J45.909 Unspecified asthma, uncomplicated; R19.7 Diarrhea, unspecified
CPT/HCPCS: 99396

== ENCOUNTER 2023-05-28 08:13 | Outpatient (REF) | payer BC, SELFPAY ==
[2023-05-28 10:23] LABS: MANUAL DIFF FLAG NO
[2023-05-28 10:35] LABS: Appearance Urine Clear; Color Urine Yellow; Glucose Urine UA Negative (Negative); Leukocyte Esterase Urine Negative (Negative); Nitrite Urine Negative (Negative); PH 6.5 (5.0-9.0); Specific Gravity - Urine 1.025 (1.005-1.025); Urine Blood Negative (Negative); Urine Ketones Negative (Negative); Urine Protein Negative (Neg-Trace)
[2023-05-28 10:36] LABS: Basophils Percent Auto 0.6 % (0-2); Eosinophils Absolute Auto 0.2 X10*3/uL (0.0-0.4); Eosinophils Percent Auto 2.6 % (0-4); Hematocrit 43.6 % (37.0-47.0); Hemoglobin 14.4 g/dl (12.0-16.0); Imm Gran Abs Auto 0.02 X10*3/uL (0.00-0.03); Imm Gran Pct Auto 0.3 % (0.0-0.4); Lymphocytes Absolute Auto 2.8 X10*3/uL (1.2-4.9); Lymphocytes Percent Auto 38.6 % (20-40); Mean Corpuscular Hemoglobin 28.6 pg (27.0-33.0); Mean Corpuscular Volume 86.7 fL (80.0-98.0); Monocytes Absolute Auto 0.5 X10*3/uL (0.1-1.2); Monocytes Percent Auto 6.5 % (2-11); Neutrophils Absolute Auto 3.7 x10*3/uL (2.0-8.3); Neutrophils Percent Auto 51.4 % (45-73); Platelet Count 242 X10*3/uL (160-400); Red Blood Count 5.03 X10*6/uL (4.20-5.50); Red Cell Distribution Width 12.5 % (11.0-16.0); White Blood Count 7.3 X10*3/uL (4.8-10.8)
[2023-05-28 11:10] LABS: Alanine Aminotransferase 31 U/L (0-31); Albumin Level 4.3 g/dL (3.5-5.0); Alkaline Phosphatase 80 U/L (39-117); Anion Gap 12 (12-20); Aspartate Amino Transferase 24 U/L (5-31); Bilirubin Total 0.4 mg/dL (0.0-1.0); Blood Urea Nitrogen 17 mg/dL (9-16); Calcium 9.3 mg/dL (8.4-10.2); Carbon Dioxide 28 mmol/L (22-29); Chloride 106 mmol/L (96-108); Cholesterol 180 mg/dL (<200); Estimated Glomerular Filt Rate > 60; Glucose Fasting 81 mg/dL (60-99); HDL Cholesterol 55 mg/dL (>40); LDL Cholesterol Calculated 95 mg/dL (<100); Potassium 3.9 mmol/L (3.3-5.1); Sodium 142 mmol/L (135-145); Total Protein 7.4 g/dL (6.5-8.0); Triglycerides 154 mg/dL (<150)
[2023-05-28 11:20] LABS: Bacteria Urine None Seen (None Seen); Hyaline Casts Urine 0-2 /LPF (0-2); RBC Urine 0-2 /HPF (0-2); WBC Urine 0-5 /HPF (0-5)
[2023-05-28 11:29] LABS: TSH reflex Free T4 2.31 uIU/mL (0.32-4.0)
== END 2023-05-28 08:14 | disposition home or self-care (01) ==
LOC: HO.HMGCLDS 08:13
PROVIDERS: PCP Internal Medicine; Visit Provider Internal Medicine
DX: Z00.00 Encounter for general adult medical examination without abnormal findings (principal)
CPT/HCPCS: 36415; 80053; 80061; 81001; 84443; 85025

== ENCOUNTER 2024-04-26 08:03 | Outpatient (REF) | payer BC, SELFPAY ==
--- NOTE | ~2024-04-26 | XR_ITS ---
EXAMINATION: XR HAND 3 OR MORE VIEWS LEFT HISTORY: M79.642 - Pain in left hand COMPARISON: Comparison is made with the prior examination of the left index finger dated 12/10/2021. FINDINGS: Three views of the left hand are submitted. Osseous mineralization is normal. There is no fracture or dislocation. There is moderate osteoarthritis of the 1st carpometacarpal joint, with joint space narrowing and osteophyte formation. The remaining joint spaces are maintained. The soft tissues are unremarkable. The previously seen soft tissue calcification adjacent to the MCP joint of the index finger is no longer present. XR/XR hand LT min 3V IMPRESSION: Moderate osteoarthritis of the 1st carpometacarpal joint. Electronically signed by: Niles Contreras MD 04/26/2024 10:07 AM PRIETO DIAZ
--- OUTSIDE RECORDS SUMMARY | 2024-04-26 08:11 | XMS_ITS | Data Portability ---
Author Organization [facility] in Office Address [address] [place] [address] Assessment Encounter Date Assessment Date Assessment LastModified by Organization Details LastModified Time 07/30/2023 07/30/2023 I spent 25 minutes of kpwq-vx-[id number] counselling and care coordination time with the patient. This includes reviewing medical records (medical, surgical, family and social history); updating medication and allergy information in the electronic health record; and ordering labs, medications, and education materials to continue patient care. [email or web address] Not available 07/30/2023 10:54:00 10/09/2023 10/09/2023 Today, we had a long discussion on the importance of weight on future health problems and she is motivated to start diet and lifestyle changes at this time. We discussed that fighting off excess weight could help reduce her future risk of metabolic syndrome, diabetes, cardiovascular disease, and other health problems. At this point, she is interested in trying medication for weight management. I spent over 15 minutes of [id number] counseling and care coordination time with the patient. This includes reviewing medical records (medical, surgical, family and social history); updating medication and allergy information in the electronic health record; and ordering labs, medications, and education materials to continue patient care. I also spent extensive time during this weight management consultative visit educating, counseling and informing the patient on her personalized risk/benefit ratio on the use of lifestyle changes and medication use for weight management. Reviewed medication use and link to medullary thyroid cancer. [email or web address] Not available 10/09/2023 11:33:01 Plan of Treatment Reminders Order Date Submit Date Provider Last Modified By Organization Details Last Modified Time Details Appointments None recorded. Lab testostero ne, free + total, w/ shbg, serum [address], [address] [place], [address], 5 18:23:43 CMP, serum or plasma [address], [address] [place], [address], 5 18:23:43 Referral None recorded. Procedures None recorded. Surgeries None recorded. Imaging None recorded. Medication Orders Contrave 8 mg-90 mg tablet,ext ended release 2023 024 [facility]armacy #[id number], [address] [place], [address], 4 11:51:47 Intrarosa 6.5 mg vaginal insert 2023 024 [facility]/Pharmacy #[id number], [address] [place], [address], 4 10:38:34 estradiol 2 mg tablet 2023 024 [email or web address] [facility]/Pharmacy #[id number], [address] [place], [address], 4 14:52:14 Patient TargetsNo targets recorded. Patient Instructions Encounter Date Encounter Id Patient Instructions Last Modified By Organization Details Last Modified Time 07/30/2023 [id number] Any requested follow-up visits are listed below in the Plan of Care section. Go directly to the [facility] director hospice operations at [email or web address] to book a time. [email or web address] Not available 07/30/2023 08:36:14 It was a pleasur e to meet you and begin to collaborate on your care, Radha! Looking forward to seeing you again soon - and please do not hesitate to reach out with any questions. ? We focused on these items today: ?1. Your medical history, symptoms and care plan. 2. Increasing estrogen dose for breakthrough hot flashes/night sweats. 3. Incorporating vaginal DHEA for uncomfortable intercourse and libido. 4. Weight management follow-up visit- upload your lab work when you're able! ? MEDICATION Please see changes to your medication plan below ? RESOURCES Here is some more information about what we discussed: We have recommended the use of HRT to treat your symptoms. HRT may have additional health benefits for bone, cardiac and brain health depending on age of initiation and years since menopause. Based on your personal and family history, you are a good candidate to try hormones as you are close in timing to your menopause and you have no history of stroke, blood clot (DVT), breast or uterine cancer. As with any drug there are some potential risks associated with HRT, including: Some studies have suggested that HRT may increase the risk of heart attack, stroke, and blood clots. If you develop chest pain or shortness of breath after taking HRT you should immediately stop and contact your provider. If you develop persistent leg cramps, headaches, cramping, nausea or breast tenderness you should discuss with your provider. There are concerns of associated health risks with HRT including risks related to breast cancer, uterine cancer, gallbladder disease, and dementia. Many of these concerns are related to older types of hormones that are no longer recommended today and some of these concerns differ depending on the component of hormones (estrogen vs progesterone) and the mode of delivery. If you have specific questions related to health risks associated with HRT, please discuss with your provider. Vaginal DHEA (Intrarosa): - Helpful non-estrogen option for the treatment of painful sex due to vaginal dryness. - Insert this vaginal suppository (6.5 mg) every night. - Get it from your pharmacy. Estradiol oral tablet: - Helpful for hot flashes and night sweats, symptoms of perimenopause/jonny pause. - Get it from your pharmacy. Note: Based on your personal and family history, you are a candidate to try hormone replacement therapy (HRT) as you are close in timing to your menopause and you have no history of stroke, blood clot (DVT), breast or uterine cancer. Black Cohosh: - Helpful for hot flashes, night sweats, and other symptoms of perimenopause & menopause. - For mild to moderate hot flashes, start with 40mg once a day, for severe hot flashes take 2 40mg capsules twice a day - Get it through [facility], our partner pharmacy. Look out for an email to buy your expert recommended product in a few clicks. Note: It may take up to 4 weeks to see a benefit from black cohosh. If your symptoms have not improved by that time, message the [facility] care team to discuss increasing your dose. [email or web address] Not available 07/30/2023 15:52:43 10/09/2023 [id number] Any requested follow-up visits are listed below in the Plan of Care section. Go directly to the [facility] director hospice operations at [email or web address] to book a time. [email or web address] Not available 10/09/2023 08:54:20 It was such a pleasure to meet with you today, Margarette! I am excited to partner with you on your weight loss journey. As a reminder, it can take weeks to months to have medications approved by the insurance companies. Rest assured, we are tracking this daily and will work diligently on your behalf to facilitate insurance approval. Please be sure to have access to the [facility] richelle so we can send you messages if we need any additional information from you for your insurance authorization. Contrave is a medication used for weight loss. If dosage goes up too quickly, it can cause nausea and vomiting. Please follow these instructions over the next four weeks to prevent side effects from developing Week 1: Take 1 tablet once a day Week 2: Take 1 tablet twice a day Week 3: Take 2 tablets in the morning and 1 tablet in the afternoon/evening Week 4 and beyond: Take 2 tablets twice a day Tips for Taking Contrave - Can promote wakefulness, so take it in the morning - Common mild side effects may include dry mouth, insomnia, headache, mild anxiety. - Severe side effects: seizures, rapid or irregular heartbeat, very high blood pressure Important Safety Information Blood Pressure: Contrave can sometimes cause in increase in blood pressure so its best to check your blood pressure twice in the week when you start this medication and with any dosage increases Seizures: Do not take Contrave if you have ever had a seizure. If you have any concerning symptoms like tremulousness, muscle twitching or restlessness contact your clinician. Loss of appetite: Contrave can cause decreased appetite so should not be taken if you have a history of an eating disorder Contrave is made up of two medications. The generic name is bupropion and naltrexone. Bupropion is also sold under different names including Wellbutrin, Zyban, Aplenzin, Forfivo, Buproban and others, so be sure you are not already taking this medication Do not combine Contrave with a monoamine oxidase inhibitor medication (MAOI) or start this medicaton if you have recently been taking an MAOI Do not combine Contrave with the antibiotic linezolid. One of the medications used in Contrave is an antidepressant and this class of medications has occasionally been associated with changes in thinking and behavior, worsening depression, suicidal thought or actions, or development of symptoms of helga. Call your healthcare provider right away if symptoms such as anxiety, irritability, impulsivity, trouble sleeping, aggressive behavior or suicidal thoughts occur. If you feel unsafe, EVER have thoughts of self harm or thoughts of harming someone else please go to the nearest emergency department or call 911. You can also call/text [phone] for the [facility] Suicide & Crisis Lifeline Glaucoma has occurred rarely in patients on Contrave, report any eye pain or changes in vision. Do not start Contrave if you have glaucoma If you are , plan to become or are nursing, talk to your healthcare provider about the possibility of risk to your baby. Serious allergic reactions. If allergic symptoms occur such as rash, itching, hives stop the medication and contact your clinician. Stop using Contrave and get medical help right away if serious allergic symptoms like swelling of the face, lips, tongue or trouble breathing occur. Additional Considerations: I have included medication instructions above for when you are able to begin the medications. If we change medications, due to insurance requirements, we will update the instructions accordingly. While we wait on the insurance authorization, this is a great time to work on setting some healthy behaviors to set yourself up for success. I have included some suggestions below. You can always find this information in the Weight Management Tips document. You can also find this under your Learning Materials tab in the [facility] Patient Portal. Here are some suggestions: Healthy eating: Start with a change that you feel ready to make. Then, consider what else you can work into your routine. Here are some ideas: -Eat 3 meals a day, including breakfast -Drink 8 glasses of water a day -Reduce portions -Find a healthy go-to snack that is low in carbs, sugar, and fat Increase servings of fruit -Increase servings of vegetables -Reduce or eliminate soda -Limit processed foods -Increase protein -Increase fiber -Reduce sugar -Reduce sodium -Reduce carbohydrates -Limit saturated and trans fats Physical activity: Find an activity you will enjoy. To start, aim to be active at least 5 days a week for 30 minutes each day. Here are some ideas: -Walk briskly -Bike -Swim -Dance -Hike -Play golf -Do yoga or pilates -Lift weights -Do housework or yard work Behavior and mindset: Certain behaviors and the way you think can play a role in your weight management. Here are some ideas: -Keep a food journal -Keep an activity journal -Identify triggers that lead to emotional eating -Identify challenging social eating situations -Learn about eating mindfully -Prepare for how to handle setbacks -Get a full night of sleep (7-8 hours) -Focus on small changes like parking further from the grocery store or your office to stretch your legs and gain a few more steps each day Setting Realistic Goals: -Keep in mind that, on average, you may lose 1 to 2 pounds per week but some weeks you may not lose weight and that is OK -Start slowly with an activity you enjoy, and make it a habit -Ask a family member or friend to get active with you -Work with members of your household to choose healthy foods -Recognize your progress, and remember that each day is a new day -Prepare meals in advance -Schedule time to make physical activity a part of your daily routine -Stay on track, even when you feel like you are not making progress -Monitor your progress. People who monitor progress lose more weight than those who do not We will meet back again in about 4 weeks to see how your new medication is working and work with you until we have medications stabilized. Please let us know if you have any questions or concerns! Kindly, SAMANTA Beard [email or web address] Not available 10/09/2023 11:51:36 Reason for Referral None Reported. Problems Name Problem SNOMED Code Status Onset Date Resolution Date Notes Provider Name and Address Organization Details Recorded Time Menopausal symptom 90070923 Active 2023 Nicole Nevarez , ROBBY [address], [place], [address], [facility] 4 08:36:15 Menopausal flushing 144964321 [place] 2023 [place] [address] [address] [id number], [facility] 4 10:14:51 Dyspareunia 38103260 Active 2023 [place] [address] [address] [place] [address], [facility] 4 10:24:48 Weight gain 6143886 Active 2023 [place] [address] [address] [place] [address], [facility] 4 15:52:49 Obesity 375463426 Active 2023 [place] [address] [address] [place] [address], [facility] 4 11:08:21 Reduced libido 5862691 Active 2023 [place] [address] [address] [place] [address], [facility] 4 11:43:53 Mastodynia of bilateral breasts 7272134008488 9109 Active 2023 [place] [address] [address] [place] [address], [facility] 4 11:48:50 Nausea 142049420 Active 2023 [place] [address] [address] [place] [address], [facility] 4 16:11:32 Problem Notes None recorded. Procedures Surgical History Date Name Laterality Status Provider Name and Address Organization Details Recorded Time Date of Last Mammogram completed [place] [address] [place] [id number], [facility] 07/30/2023 09:59:02 3 Date of Last Colonoscopy completed Nicole Nevarez, DISASTER OR DAMAGE CONTROL SPECIALIST [address] [place], [address], [facility] 07/30/2023 09:59:02 Imaging Results None recorded. Procedure Notes None recorded. Medical Equipment None Reported. Allergies Allergen ID Allergen Name Allergen Category Reaction Reaction Severity Criticality Documentation Date Start Date Code Code System Note Provider Name and Address Organization Details Recorded Time 31575 codeine medicatio n Not available Not available Not available 07/30/2023 2670 RxNorm Not Available Not Available Not Available 99813 acetamino phen / oxycodone medicatio n Not available Not available Not available 07/30/2023 23417 3 RxNorm Not Available Not Available Not Available 60909 Flagyl medicatio n Not available Not available Not available 07/30/202302040 6 RxNorm Not Available Not Available Not Available Medications Name Sig Start Date Stop Date Status Note LastModified by Organization Details LastModified Time cholestyrami ne (bulk) powder active Not Available Not Available Not Available naltrexone 50 mg tablet Take 0.5 tablets twice a day by oral route as directed for 30 days. 2023 active Not Available Not Available Not Avai lable ondansetron 8 mg disintegrati ng tablet Place 1 tablet twice a day by translingua l route as needed for 10 days. 2023 active Not Available Not Available Not Avai lable estradiol 2 mg tablet TAKE 1 TABLET BY MOUTH EVERY DAY DIRECTED active Not Available Not Available No t Available bupropion HCl SR 200 mg tablet,12 hr sustained-re lease TAKE 1 TABLET BY MOUTH TWICE A DAY DIRECTED active Not Available Not Available No t Available estradiol active Not Available Not Ignacia ilable Not Available omeprazole active Not Available Not Av ailable Not Available black cohosh active Not Available Not Available Not Available Contrave 8 mg-90 mg tablet,exten ded release Take 2 tablets twice a day by oral route as directed for 30 days. 2023 active Not Available Not Available Not Avai lable Flonase Allergy Relief active Not Available Not Available Not Available Intrarosa 6.5 mg vaginal insert active Not Available Not Available Not Available Vitals Date Recorded Body height Body mass index (BMI) Body weight Provider Name and Address Organization Details Last Updated DateTime 07/30/2023 144.78 cm 27.7 kg/m2 95[address].82 [place] [address] [place], [address] 07/30/2023 10:18:20 Date Recorded Body height Body mass index (BMI) Body weight Provider Name and Address Organization Details Last Updated DateTime 10/09/2023 144.78 cm 27.7 kg/m2 [address].82 [place] [address] [place], [address], [facility] 10/09/2023 11:05:56 Social History None recorded. Functional Status None recorded. Mental Status None recorded. Family History Nothing Reported. Medical History No medical history recorded. Gynecological History Statement/Question Response Current Control Method Partner vas ectomy,Hysterectomy Date of Last Mammogram 05/28/2023 Date of Last Colonoscopy 01/28/2023 Approximate Hormone Replacement Therapy Yes Obstetrics History GPAL:G 0 P 0 0 0 0 Past Encounters Encounter ID Performer Location Encounter Start Date Encounter Closed Date Diagnosis/Indication Diagnosis SNOMED-CT Code Diagnosis ICD10 Code Diagnosis Note [id number] Kaitiln Aldridge MD Main Office [address] [place] [address] 07/30/2023 09:04:01 07/31/2023 09:51:58 Menopausal flushing 609118885 N95.1 -Counselin g was provided to the patient on options for management of breakthrou gh VMS including an increased dose of oral estradiol, incorporat ing black cohash into her supplement routine and transition ing her to a transderma l formulatio n of estrogen (Divigel). Her preference is to continue on oral estrogen at an increased dose (2mg)-Coun seling was provided on the possible side effects of this dose adjustment including breast tenderness , water retention, anxiety and headache Dyspareunia 74379593 N94 .10 -The patient reports discomfort with intercours e, however, this has not affected her libido-She denies post-coita l bleeding-I n addition to increasing oral estradiol dose, will plan to have her start Intrarosa to enhance lubricatio n and minimize pain with sex-Discus sed use of O-nut ring if she experience s pain with deep penetratio n Weight gain 9170906 R63. 5 -Patient plans to upload results of recent lab work and return for a weight management consult [id number] Kaitlin Aldridge MD Main Office [address] [place] [address] 10/09/2023 10:05:10 10/10/2023 15:03:39 Menopausal symptom 55487299 N95.1 -VMS well-contr olled on current dose of estradiol Dyspareunia 45914215 N94 .10 -The patient reports discomfort with intercours e-She denies post-coita l bleeding-W ill plan to have her start Intrarosa to enhance lubricatio n and minimize pain with sex which has been approved by insurance- Discussed use of O-nut ring if she experience s pain with deep penetratio n Weight gain 8984607 R63. 5 -We discussed several options for weight management including Semaglutid es, Tirzepatid es, Metformin, Contrave and Berberine and their associated risks, benefits and potential side effects.-T he patient's preference is Contrave to reduce appetite and cravings. Discussed the possibilit y of using separate Wellbutrin +Naltrexon e if insurance does not approve Contrave-C alaneling provided on the possible side effects of Contrave including dry mouth, headache, insomnia and anxiety-Co unseling provided on the importance of lifestyle changes including practicing good sleep hygeine, a goal of 150 minutes per week of exercise in divided intervals and diet changes-I provided education on the benefits of adequate fiber intake for glucose metabolism and weight-Dis cussed the importance of prioritizi ng protein, aiming for a goal of 100grams daily with 100grams or fewer carbohydra laine-Follow -up scheduled to re-evaluat e progress and overall health status Reduced libido 2944967 R 68.82 -The patient reports ongoing diminished libido which may be related to environmen kerwin factors, dyspareuni a, and/or hypotestos teronism-W ill plan to have the patient start Intrarosa to minimize pain during intercours e and obtain a testostero ne panel to screen for low levels Mastodynia of bilateral breasts 1945186700 2199198 N64.4 -The patient reports mild but persistant BL breast tenderness since increasing dose of estradiol- She denies any nipple discharge or discolorat ion, palpable masses or dimpling-C ounseling provided on strategies to manage this, such as wearing a light sleeper bra and taking vitamin E daily-Disc ussed the importance of continuing regular mammograms -May consider dose adjustment to HRT if symptoms persist Health Concerns Section Related Observation LastModified by Organization Detai ls LastModified Time None Recorded Concern Status LastModified by Organization Details LastModified Time None Recorded Advance Directives Directive None Recorded Payers Encounter Date Sequence Insurance Name Policy Number Policy Hogue Covered Member ID [place]ogue Member ID Guarantor Name 07/30/2023 1 [place] [id number] Margarette Pringle [id number] Margaretet Pringle 10/09/2023 1 [place] [id number] Margarette Pringle [id number] Margarette Pringle Notes Date Note Type Note Provider Name and Address Organization Details Recorded Time 4 text/html Virtual Visit AttestationModality: VideoProvider Location: HomePatient State: {{AL AK AZ AR CA CO CT DE DC FL GA HI ID IL IN IA KS [place] LA MA* ME FL MN MS MO MT NE NV NH NJ NM N Y NC ND OH OK OR PA RI SC SD TN TX UT VT VA WA W[place] WI W[place]}} HPI:-Patient is a 53 year old who presents with c/o hot flashes, night sweats, decreased libido, weight gain around her midsection and sleep pattern disturbance from night sweats-She c/o dyspareunia and mild vaginal dryness-She does not have difficulty falling asleep HRT History:-She has been on HRT for about 20 years following a total hysterectomy with BL salpingo-oophorectomy for endometriosis and cervical dysplasia at age 34-She is currently on oral estradiol 1mg qday which was initially effective for VMS. She feels the benefit is wearing off -The patient reports previous use of estradiol patches but experienced a localized skin reaction to the adhesive-She has also tried the Estring but discontinued as it caused vaginal irritation and disruption of vaginal pH. 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 Kegel exercises have been helpful. 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 Her wedding is planned for 08/14/2024-She does not follow any particular diet but does avoid fried or high-fat foods since gallbladder removal-She reports participating in low-impact exercise several times weekly Family History:-Father: Type 2 Diabetes, Heart Disease ()-Mother: Heart Disease, Hypertension (living) Preventative Care:-Date of last mammogram: 05/28/2023 (completes screening every 6 months for surveillance of right breast calcifications)-Date of last pap/pelvic exam: 02/2023 (normal)-Date of last colonoscopy: 01/28/2023 (normal)-Immunizations UTD-Contraception: Hysterectomy-Bone density scan: 02/2023 [place] [address] [place], [place], [id number], [place] - [facility] 09/01/2023 09:11:59 4 text/html Virtual Visit AttestationModality: VideoProvider Location: HomePatient State: {{AL AK AZ AR CA CO CT DE DC FL GA HI ID IL IN IA KS KY LA MA* ME FL MN MS MO MT NE NV NH NJ NM N Y NC ND OH OK OR PA RI SC SD TN TX UT VT VA WA WV WI WY}} HPI:-Patient is a 53 year old who presents for menopausal symptom conrue-re-Jvf previously presented with c/o hot flashes, night sweats, decreased libido, weight gain around her midsection and sleep pattern disturbance from night sweats which have greatly improved with increased dose of estradiol (2mg PO)-She c/o dyspareunia and diminished libido. 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 Kegel exercises have been helpful. 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 Her wedding is planned for 08/14/2024-She does not follow any particular diet but does avoid fried or high-fat foods since gallbladder removal-She reports participating in low-impact exercise several times weekly Family History:-Father: Type 2 Diabetes, Heart Disease ()-Mother: Heart Disease, Hypertension (living)Preventative Care:-Date of last mammogram: 05/28/2023 (completes screening every 6 months for surveillance of right breast calcifications)-Date of last pap/pelvic exam: 02/2023 (normal)-Date of last colonoscopy: 01/28/2023 (normal)-Immunizations UTD-Contraception: Hysterectomy-Bone density scan: 02/2023 Weight Management:She has been struggling with weight management for {{ 15 years#}} and is seeking options for medications for weight reduction and improvement of overall health. She will be getting in July of 2024 and would like ot lose approximately 13-15lbs prior.She admits to struggling with sugar cravings and portion control. Highest Weight: {{ 132lbs during #}}Current weight: {{ 128lbs#}} BMI: 27.7Goal weight: {{ 115lbs#}}Last time at goal weight: Before children Her comorbidities include {{ overweight BMI#}}. She has previously tried: Herbal Life and lifestyle modificationThe patient has been working out for 150 minutes per week for the past 6 monthsThe patient has been following a caloric deficit diet for the past 6 months Her personal history does not include:thyroid cancerpancreatitisAn eating disorder including anorexia, bulimia, orthorexia, binge or others. Her family history does not include:thyroid cancer Her most recent blood work was on {{ 07/30/2023#}} and was normal with no evidence of insulin resistance, hyperlipidemia, thyroid dysfunction or vitamin deficiency. CBC and CMP were within [place] [id number] [place], [id number], [facility] 10/09/2023 12:02:39 OBGyn Episode No OBEpisode recorded.
== END 2024-04-26 08:04 | disposition home or self-care (01) ==
LOC: HO.HOSX 08:03
DX: M18.12 Unilateral primary osteoarthritis of first carpometacarpal joint, left hand (principal); M79.642 Pain in left hand
CPT/HCPCS: 20600; 73130; J1010; J2003

== ENCOUNTER 2024-04-26 08:26 | Outpatient (AMB) | payer BC, SELFPAY ==
[2024-04-26 08:28] VITALS: BMI 25.5
--- NOTE | 2024-04-26 08:28 | A.OFFVIS_ITS ---
Vital Signs 04/26/24 08:28 Height 4 ft 9 in Weight 118 lb BMI 25.5 Intake Visit Reasons: New Prob: LT thumb pain Intake Note: Margarette is a 53 year old right hand dominant female who presents today for a new problem visit for left hand pain. States pain is mainly at base of her thumb. States she has pain by her CMC joint randomly through out the day, sharp pains, and weakness. She also notice a dent by her thenar muscle. Denies numbness, tingling or locking if any finger. Allergies codeine [From Tylenol-Codeine #3] Allergy (Intermediate, Verified 04/26/24 08:29) hives metronidazole [From FLAGYL] Allergy (Intermediate, Verified 04/26/24 08:29) Hives oxycodone [From PERCOCET] Allergy (Intermediate, Verified 04/26/24 08:29) Hives Codeine Allergy (Intermediate, Uncoded 04/26/24 08:29) Hives HPI HPI New Prob: LT thumb pain: Details: Margarette is a 53 year old right hand dominant female who presents today for a new problem visit for left hand pain. States pain is mainly at base of her thumb. States she has pain by her CMC joint randomly through out the day, sharp pains, and weakness. She also notice a dent by her thenar muscle. Denies numbness, tingling or locking if any finger. 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 Neuro: Normal sensation of the tips of all digits of the left hand at this time Vascular: Cap refill brisk Pain: Tenderness to palpation noted about the 1st CMC joint of the left hand No tenderness to palpation of the radial styloid or MCP joint of the left thumb ROM: Patient was able to make a closed fist and extend all digits of the left hand fully, but reports discomfort in the left thumb when doing so Skin: No lacerations or abrasions. General: No ecchymosis, erythema, or evidence of infection. Psych: Appears grossly normal Affect normal Attitude cooperative Office Procedures Joint Inj/Aspir; Non-Pain Clin Joint Injection/Drain Prep: site was prepped using aseptic technique and injection warnings given Procedure: The patient tolerated the procedure well and but had some pain with the injection Elbows, Wrist, Hands, Hand injection Medium joint 53644: Left Hand Coding Procedure code (CPT) selection complete Results Reviewed Results Reviewed: X-rays obtained in the office today and independently reviewed by me, Ryan Lua PA-C, demonstrate moderate to severe degenerative changes of the 1st CMC joint of the left hand. Assessment & Plan Assessment & Plan (1) Osteoarthritis of first carpometacarpal joint of left hand: Code(s): M18.12 - Unilateral primary osteoarthritis of first carpometacarpal joint, left hand Category: Medical Plan 1. Basal joint arthritis of the left hand Patient is educated about this condition Patient was educated about the treatment options available Patient would like to proceed with steroid injection The risks and benefits of a steroid injection including but not limited to risk of damage to blood vessels, nerve, tendon, infection, skin bleaching, persistent or worsening pain, and failure to improve symptoms were discussed with the patient and they wish to proceed with the steroid injection. Once consent was obtained the skin over the dorsum of the left basal joint was sterilely prepped. The joint was then attempted to be injected with a combination of 1 mL of (40 mg/ml} Depo-Medrol and 1% plain Lidocaine. Unfortunately, I was unable to guide the needle into the joint, likely secondary to the patient's severe degenerative changes and limited joint space. Due to this, patient is referred to Dr. Barba for basal joint injection under imaging, next available appointment Orders: Orders XR hand LT min 3V Today M79.642 - Pain in left hand Coding Level of Care Code Est Pt Level 3 (36730) Diagnoses Osteoarthritis of first carpometacarpal joint of left hand M18.12 CPT Codes Elbows, Wrist, Hands, - Hand injection Medium joint : Left Hand ([id number])
== END 2024-04-26 09:11 | disposition home or self-care (01) ==
PROVIDERS: PCP Internal Medicine
DX: M18.12 Unilateral primary osteoarthritis of first carpometacarpal joint, left hand (principal)
CPT/HCPCS: 20600; 99213

== ENCOUNTER → 2024-04-26 08:30 | Outpatient (BNV) | payer BC, SELFPAY | PROVIDERS: Visit Provider Radiology Diagnostic Radiology | DX: M18.12 Unilateral primary osteoarthritis of first carpometacarpal joint, left hand (principal) | CPT/HCPCS: 73130 ==

== ENCOUNTER 2024-06-04 12:48 | Outpatient (AMB) | payer BC, SELFPAY ==
--- NOTE | 2024-06-04 13:02 | MHC.PC.OV ---
Vital Signs 06/04/24 13:03 Height 4 ft 9 in Weight 114 lb BMI 24.7 BP 110/74 Blood Pressure Location Lt brachial Position Sitting Respiration 18 Pulse 71 Pulse Source Pulse Oximeter Temp 98.1 F Temp Source Oral Pulse Oximetry (%) 95 Oxygen Delivery Method Room Air Intake Visit Reasons: Annual PE Intake Note: Pt is here today for Allergies codeine [From Tylenol-Codeine #3] Allergy (Intermediate, Verified 06/04/24 13:11) hives metronidazole [From FLAGYL] Allergy (Intermediate, Verified 06/04/24 13:11) Hives oxycodone [From PERCOCET] Allergy (Intermediate, Verified 06/04/24 13:11) Hives Codeine Allergy (Intermediate, Uncoded 06/04/24 13:11) Hives Medication List - Last Reconciled 06/04/24 by Cher Wallace MD albuterol sulfate 90 mcg/actuation 2 inhalations inhalation Q6-8H PRN Arnuity Ellipta 100 mcg/actuation (fluticasone furoate) 1 inh inhalation DAILY NS cholestyramine-aspartame 4 gram 4 grams PO DAILY estradiol 1 mg PO DAILY fluticasone propionate 50 mcg/actuation (Flonase Allergy Relief) 1 spray intranasal BID meloxicam 15 mg PO DAILY omeprazole 20 mg PO DAILY Tobacco use date assessed: 06/04/24 Dental Screening Dental Screen Date: 06/04/24 Did you have a dental visit in the last 12 months?: Yes Did you have a dental problem in the last 6 months where you did not have access to dental care?: No Was dental information given to patient?: Patient has dentist HPI Annual PE HPI Details Pt presents for PE. She is getting in July and going for [facility]. Asthma is controlled on Arnuity and patient is using albuterol inhaler only as needed [facility] Medical History (Updated 06/04/24 @ 13:51 by Cher Wallace MD) Asthma GERD (gastroesophageal reflux disease) Surgical History H/O total hysterectomy (~2004) Hx of endoscopy Hx of cholecystectomy Hx of colonoscopy Family History Father Diabetes Hypertension Mother Hypertension COPD (chronic obstructive pulmonary disease) Mental health disorder Social History Housing: Apartment Patient Tobacco Use Status: Never used Tobacco e-Cigarette/Vaping Use: Never Used service: No Current occupational status: employed 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 1. Little interest or pleasure in doing things: not at all 2. Feeling down, depressed, or hopeless: not at all 3. Trouble falling or staying asleep, or sleeping too much: not at all 4. Feeling tired or having little energy: not at all 5. Poor appetite or overeating: not at all 6. Feeling bad about yourself - or that you are a failure or have let yourself or your family down: not at all 7. Trouble concentrating on things, such as reading the newspaper or watching television: not at all 8. Moving or speaking so slowly that other people could have noticed. Or the opposite - being so fidgety or restless that you have been moving around a lot more than usual: not at all 9. Thoughts that you would be better off or of hurting yourself in some way: not at all Total score: 0 Depression Screening Interpretation: Negative Depression Screening Done: Yes 84142 - PHQ-9 Billing: Yes Source: Developed by Drs. Niles Rashid, Precious Saenz, Emir Goetz and colleagues, with an educational tom from [employer]. Thrive Questionnaire Date Thrive assessed: 06/04/24 I am a: Patient What is your living situation today?: I have a steady place to live Within the past 12 months, did the food you bought not last and you didn't have the money to get more?: Never true Within the past 12 months, did you worry whether your food would run out before you got money to buy more?: Never true Do you have trouble paying for medicines?: No Do you have trouble getting transportation to medical appointments?: No Do you have trouble paying your heating and electricity bill?: No Do you have trouble taking care of your child, family member or friend?: No Do you have trouble with day-to-day activities such as bathing, preparing meals, shopping, managing finances, etc.?: No Are you currently unemployed and looking for a job?: No Are you interested in more education?: No Please select the resources that you would like help with: None Currently or been in a relationship where the following occur: No concerns reported THRIVE Score: 0 AUDIT C Alcohol Use Questionnaire (AUDIT-C) 1. How often do you have a drink containing alcohol?: 2-4 times a month 2. How many drinks containing alcohol do you have on a typical day when you are drinking?: 1 or 2 3. How often do you have six or more drinks on one occasion?: Never Total Score: 2 TAMIA-7 AMB Questionnaire TAMIA-7 Date TAMIA - 7 assessed: 06/04/24 Feeling nervous, anxious, or on edge: 0 = Not at all Not being able to stop or control worryin = Not at all Worrying too much about different things: 0 = Not at all Trouble relaxin = Not at all Being so restless that it is hard to sit still: 0 = Not at all Becoming easily annoyed or irritable: 0 = Not at all Feeling afraid as if something awful might happen: 0 = Not at all Total TAMIA-7 score (0-4 normal; 5-9 mild; 10-14 moderate; 15-21 severe): 0 Source: Developed by Drs. Niles Rashid, Precious Saenz, Emir Goetz and colleagues, with an educational tom from [employer]. TAMIA-7 Assessment Billing TAMIA-7 Assessment Tool: TAMIA-7 Assessment 79483 Review of Systems Const All systems reviewed & are unremarkable except as noted in HPI and below Eyes Reports no additional complaints ENT Reports no additional complaints Card Reports no additional complaints Resp Reports no additional complaints GI Reports no additional complaints Reports no additional complaints Physical exam (Primary Care) Vital Signs: Last Vital Signs Temp 98.1 F 06/04/24 13:03 Pulse 71 06/04/24 13:03 Resp 18 06/04/24 13:03 BP 110/74 06/04/24 13:03 Pulse Ox 95 06/04/24 13:03 Oxygen Delivery Method Room Air 06/04/24 13:03 BMI result Body Mass Index 24.7 Tobacco/Smoking Status: Tobacco use Status Tobacco use date assessed 06/04/24 06/04/24 13:13 Patient Tobacco Use Status Never used Tobacco 06/04/24 13:13 e-Cigarette/Vaping Use Never Used 06/04/24 13:03 PHQ-9: PHQ-9 Score PHQ-9: Total score 0 06/04/24 13:45 Depression Screening Interpretation: Negative Thrive Assessment: Date of Thrive Assessment Date Thrive assessed 06/04/24 06/04/24 13:14 Currently or been in a relationship where the following occur: No concerns reported Const General: no acute distress HENMT Head: Yes normal to inspection Ears: hearing grossly normal bilaterally Face and sinus: Yes normal facial exam Throat: Yes posterior oropharynx normal Eyes General: appearance normal, both eyes and all related structures Neck Neck: Yes no lymphadenopathy and Yes supple Resp Effort & Inspection: normal respiratory effort Auscultation: clear to auscultation bilaterally Cardio Rhythm: regular rhythm Heart sounds: S1 normal heart sound present and S2 normal heart sound present GI Inspection: Yes normal to inspection Palpation (GI): Soft to palpation Percussion: Yes normal to percussion Auscultation: normal bowel sounds Immunizations pneumoc 20-adela conj-dip cr(PF) 0.5 mL IM syringe Performing Provider: Cher Wallace MD Performing Location: [facility] Administered by: KIEL Collins on 06/04/24 13:58 Dose Route Admin Location Dispensed Lot Number Expiration Date NDC Archery Instructor 0.5 mL IM Left Deltoid 0.5 mL [id number] 08/23/25 [place]ETH/PFIZER VIS Given Date VIS Provided VIS Publication Date 06/04/24 Single Vaccine 21 Eligibility Eligibility Date Funding Source Not [facility] Eligible 06/04/24 Private Coding Level of Care Code Est Pt Prev Care 40-64y(14600) Diagnoses Asthma J45.909 Annual physical exam Z00.00 Additional Codes TAMIA-7 Assessment Billing - TAMIA-7 Assessment Tool: TAMIA-7 Assessment 97701 ([id number]) PHQ-9 - 72571 - PHQ-9 Billing: Yes ([id number]) Assessment & Plan Assessment & Plan (1) Asthma: Code(s): J45.909 - Unspecified asthma, uncomplicated Category: Medical Plan: Controlled on Arnuity (2) Annual physical exam: Code(s): Z00.00 - Encounter for general adult medical examination without abnormal findings Category: Medical Plan: Well-balanced diet regular physical activity discussed with the patient. She is up-to-date with the mammogram Pap smear by riveting machine operator automatic and colonoscopy in 2022 Orders: Orders Comprehensive [place]. Panel Fast Today J45.909 - Unspecified asthma, uncomplicated, Z.00 - Encounter for general adult medical examination without abnormal findings Complete Blood Count Auto Diff Today J45.909 - Unspecified asthma, uncomplicated, Z.00 - Encounter for general adult medical examination without abnormal findings Vitamin D 25-OH Total Today J45.909 - Unspecified asthma, uncomplicated, Z.00 - Encounter for general adult medical examination without abnormal findings UA w Microscopic Today J45.909 - Unspecified asthma, uncomplicated, Z.00 - Encounter for general adult medical examination without abnormal findings Pneumococcal 20 Immunization Today Z23 - Encounter for immunization Lipid Panel Today J45.909 - Unspecified asthma, uncomplicated, Z.00 - Encounter for general adult medical examination without abnormal findings TSH reflex Free T4 Today J45.909 - Unspecified asthma, uncomplicated, Z00.00 - Encounter for general adult medical examination without abnormal findings Medications: New pneumoc 20-adela conj-dip cr(PF) 0.5 mL IM ONCE 0.5 mL 0RF Z23 - Encounter for immunization Changed From cholestyramine-aspartame 4 gram 4 grams PO DAILY 180 ea 3RF To cholestyramine-aspartame 4 gram 4 gr orally daily; 180 ea 3RF Refilled Arnuity Ellipta 100 mcg/actuation (fluticasone furoate) 1 inh inhalation DAILY 90 ea 5RF NS
[2024-06-04 13:03] VITALS: BP 110/74; PULSE 71; RESP 18; TEMP 36.7; O2SAT 95; BMI 24.7
--- OUTSIDE RECORDS SUMMARY | 2024-06-04 13:19 | XMS_ITS | Data Portability ---
Author Organization [facility] in Office Address [address] [place] [address] Assessment Encounter Date Assessment Date Assessment LastModified by Organization Details LastModified Time 07/30/2023 07/30/2023 I spent 25 minutes of kftc-nr-mqtk counselling and care coordination time with the patient. This includes reviewing medical records (medical, surgical, family and social history); updating medication and allergy information in the electronic health record; and ordering labs, medications, and education materials to continue patient care. [email or web address] Not available 07/30/2023 10:54:00 10/09/2023 10/09/2023 Today, [...] management. I spent over 15 minutes of cwut-kb-leab counseling and care coordination time with the [...] use and link to medullary thyroid cancer. [email or web address] Not available 10/09/2023 11:33:01 Plan of Treatment Reminders Order Date Submit Date Provider Last Modified By Organization Details Last Modified Time Details Appointments None recorded. Lab testostero ne, free + total, w/ shbg, serum [address], [address] [place], [address], 5 18:23:43 CMP, serum or plasma [address], [address] [place], [address], 5 18:23:43 Referral None recorded. Procedures None recorded. Surgeries None recorded. Imaging None recorded. Medication Orders Contrave 8 mg-90 mg tablet,ext ended release 2023 024 [facility][id number], [address] [place], [address], 4 11:51:47 Intrarosa 6.5 mg vaginal insert 2023 024 [facility][id number], [address] [place], [address], 4 10:38:34 estradiol 2 mg tablet 2023 024 [email or web address] [facility] #[id number], [address] [place], [address], 4 14:52:14 Patient TargetsNo targets recorded. Patient Instructions Encounter Date Encounter Id Patient Instructions Last Modified By Organization Details Last Modified Time 07/30/2023 [id number] Any requested follow-up visits are listed below in the Plan of Care section. Go directly to the [facility] trimming machine operator at [email or web address] to book a time. [email or web address] Not available 07/30/2023 08:36:14 It was a [...] improved by that time, message the [facility] care team to discuss increasing your dose. [email or web address] Not available 07/30/2023 15:52:43 10/09/2023 [id number] Any requested follow-up visits are listed below in the Plan of Care section. Go directly to the [facility] trimming machine operator at [email or web address] to book a time. Not available 10/09/2023 08:54:20 It was such [...] be sure to have access to the [facility] richelle so we can send you messages [...] You can also call/text [phone] for the [facility] Glaucoma has occurred [...] under your Learning Materials tab in the [facility] Patient Portal. Here are some suggestions: Healthy [...] any questions or concerns! Kindly, SAMANTA Beard [email or web address] Not available 10/09/2023 11:51:36 Reason for Referral None Reported. Problems Name Problem SNOMED Code Status Onset Date Resolution Date Notes Provider Name and Address Organization Details Recorded Time Menopausal symptom 77336556 Active 2023 Nicole Nevarez , ROBBY [address], [place], [address], [facility] 4 08:36:15 Menopausal flushing 877036944 [place] 2023 [place] [address] [address] [address], [facility] 4 10:14:51 Dyspareunia 14722798 Active 2023 [place] [address] [address] [place] [address], [facility] 4 10:24:48 Weight gain 0601824 Active 2023 [place] [address] [address] [place] [address], [facility] 4 15:52:49 Obesity 564722009 Active 2023 [place] [address] [address] [place] [address], [facility] 4 11:08:21 Reduced libido 5655296 Active 2023 [place] [address] [address] [address], [facility] 4 11:43:53 Mastodynia of bilateral breasts 8572312562547 9109 Active 2023 [place] [address] [address] [address], [facility] 4 11:48:50 Nausea 363031919 Active 2023 [place] [address] [address] [place] [address], [facility] 4 16:11:32 Problem Notes None recorded. Procedures Surgical History Date Name Laterality Status Provider Name and Address Organization Details Recorded Time Date of Last Mammogram completed [place] [address] [place] [id number], [facility] 07/30/2023 09:59:02 3 Date of Last Colonoscopy completed Nicole Nevarez, [facility] [id number] [place], [address], [facility] 07/30/2023 09:59:02 Imaging Results None recorded. Procedure Notes None recorded. Medical Equipment None Reported. Allergies Allergen ID Allergen Name Allergen Category Reaction Reaction Severity Criticality Documentation Date Start Date Code Code System Note Provider Name and Address Organization Details Recorded Time 68844 codeine medicatio n Not available Not available Not available 07/30/2023 2670 RxNorm Not Available Not Available Not Available 42807 acetamino phen / oxycodone medicatio n Not available Not available Not available 07/30/2023 19218 3 RxNorm Not Available Not Available Not Available 23712 Flagyl medicatio n Not available Not available Not available 07/30/202392019 6 RxNorm Not Available Not Available Not [...] Updated DateTime 07/30/2023 144.78 cm 27.7 kg/m2 31055.[place] [address] [place], [address] 07/30/2023 10:18:20 Date Recorded Body height Body mass index (BMI) Body weight Provider Name and Address Organization Details Last Updated DateTime 10/09/2023 144.78 cm 27.7 kg/m2 59994.82 [place] [address] [place], [address], [facility] 10/09/2023 11:05:56 Social History None recorded. Functional [...] SNOMED-CT Code Diagnosis ICD10 Code Diagnosis Note [id number] Kaitlin Aldridge MD Main Office [address] [place] [address] 07/30/2023 09:04:01 07/31/2023 09:51:58 Menopausal flushing 578509874 N95.1 -Counselin g was provided to the [...] , water retention, anxiety and headache Dyspareunia 48452645 N94 .10 -The patient reports discomfort with intercours e, however, this has not affected her libido-She denies post-coita l bleeding-I n addition to increasing oral estradiol dose, will plan to have her start Intrarosa to enhance lubricatio n and minimize pain with sex-Discus sed use of O-nut ring if she experience s pain with deep penetratio n Weight gain 1539173 R63. 5 -Patient plans to upload results of recent lab work and return for a weight management consult [id number] Kaitlin Aldridge MD Main Office [address] [place] [address] 10/09/2023 10:05:10 10/10/2023 15:03:39 Menopausal symptom 39317761 N95.1 -VMS well-contr olled on current dose of estradiol Dyspareunia 65316189 N94 .10 -The patient reports discomfort with intercours e-She denies post-coita l bleeding-W ill plan to have her start Intrarosa to enhance lubricatio n and minimize pain with sex which has been approved by insurance- Discussed use of O-nut ring if she experience s pain with deep penetratio n Weight gain 6218411 R63. 5 -We discussed several options for [...] progress and overall health status Reduced libido 9138480 R 68.82 -The patient reports ongoing diminished libido which may be related to environmen kerwin factors, dyspareuni a, and/or hypotestos teronism-W ill plan to have the patient start Intrarosa to minimize pain during intercours e and obtain a testostero ne panel to screen for low levels Mastodynia of bilateral breasts [id number] 8069329 N64.4 -The patient reports mild but persistant [...] Guarantor Name 07/30/2023 1 [place] [id number] Margarette Pringle [id number] Margarette Pringle 10/09/2023 1 [place] [id number] Margarette Pringle [id number] Margarette Pringle Notes Date Note Type Note Provider Name and Address Organization Details Recorded Time 4 text/html Virtual Visit AttestationModality: VideoProvider Location: HomePatient State: {{AL AK AZ AR CA CO CT DE DC FL GA HI ID IL IN [place] MA* ME NM MN MS MO MT NE NV NH [...] with calcium Surgical History:-Total hysterectomy with BL cljeqvjg-aqtujxicquvz-Qzm al ligation prior to hysterectomy-Carpal tunnel surgery [...] Hysterectomy-Bone density scan: 02/2023 [place] [address] [place], [address], [place] [facility] 09/01/2023 09:11:59 4 text/html Virtual Visit AttestationModality: VideoProvider Location: HomePatient State: {{AL AK AZ AR CA CO CT DE DC FL GA HI ID IL IN IA [place] LA MA* ME NM MN MS MO MT NE NV NH NJ NM N Y NC ND OH OK OR PA RI SC SD TN TX UT VT VA WA WV WI WY}} HPI:-Patient is a 53 year old who presents for menopausal symptom oqognw-fh-Cwq previously presented with c/o hot flashes, night [...] D3 with calciumSurgical History:-Total hysterectomy with BL kkooouit-juewbdxmedgg-Pod al ligation prior to hysterectomy-Carpal tunnel surgery [...] were within [place] [address] [place], [address], [facility] 10/09/2023 12:02:39 OBGyn Episode No OBEpisode recorded.
== END 2024-06-04 13:59 | disposition home or self-care (01) ==
LOC: HO.HMCC 12:49
PROVIDERS: PCP Internal Medicine; Visit Provider Internal Medicine
DX: J45.909 Unspecified asthma, uncomplicated (principal); Z00.00 Encounter for general adult medical examination without abnormal findings; Z23 Encounter for immunization

== ENCOUNTER → 2024-06-04 12:48 | Outpatient (BNVA) | payer BC, SELFPAY | PROVIDERS: PCP Internal Medicine; Visit Provider Internal Medicine | DX: Z00.00 Encounter for general adult medical examination without abnormal findings (principal); Z23 Encounter for immunization; J45.909 Unspecified asthma, uncomplicated | CPT/HCPCS: 90471; 90677; 96127 ==

== ENCOUNTER 2024-06-16 09:39 | Outpatient (AMB) | payer BC, SELFPAY ==
[2024-06-16 09:57] VITALS: BMI 24.7
--- NOTE | 2024-06-16 09:57 | MHC.OFFVIS ---
Vital Signs 06/16/24 09:57 Height 4 ft 9 in Weight 114 lb BMI 24.7 Intake Visit Reasons: INJ L basal inj under imaging Intake Note: Margarette 53 yr old right hand dominant female presents today for her follow up visit for her left hand CMC joint. States pain is mainly at base of her thumb. Reports she has pain by her CMC joint randomly through out the day, sharp pains, and weakness. She also notice a dent by her thenar muscle. Last seen with Ivett Davis who attempted and failed CMC injection and advise patient to be seen with Dr Barba for further evaluation and to discuss basal joint injection. Allergies codeine [From Tylenol-Codeine #3] Allergy (Intermediate, Verified 06/16/24 09:58) hives metronidazole [From FLAGYL] Allergy (Intermediate, Verified 06/16/24 09:58) Hives oxycodone [From PERCOCET] Allergy (Intermediate, Verified 06/16/24 09:58) Hives Codeine Allergy (Intermediate, Uncoded 06/16/24 09:58) Hives HPI HPI INJ L basal inj under imaging: Details: Margarette is a 53 year old right hand dominant woman who presents for her left basal joint arthritis. She was last seen by LILY Davis on 04/26/24 where a basal joint injection was attempted, but failed. She complains of pain at the base of her left thumb, worse with pinching or gripping activities. 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 Cognitive needs: No Hearing needs: No Vision needs: Yes Review of Systems Const All systems reviewed & are unremarkable except as noted in HPI and below Physical Exam Vital Signs: BMI result Body Mass Index 24.7 Const General: cooperative, healthy appearing and no acute distress Orientation/consciousness: patient oriented x3 HEENT Head: Yes normocephalic and Yes atraumatic Eyes EOM: EOMs intact bilaterally Resp Effort & Inspection: normal respiratory effort and able to speak in complete sentences Cardio Jugular venous distension: no JVD Skin General skin exam: turgor normal Rashes: no rashes Neuro General: patient oriented x3 Extrem Other: Evaluation of Upper Extremity: The patient is alert, oriented, and in no acute distress Neuro: Median, Ulnar, Radial nerves motor and sensory intact and sensation is normal to the tips of all digits Vascular: Cap refill brisk ROM: She can make a fist and extend all her digits No locking or catching Skin: No lacerations or abrasions. General: No Ecchymosis. No Erythema or evidence of infection. Most tender over the basal joint Early shoulder sign No tenderness over the 1st dorsal compartment Negative Rich test on the left No tenderness over the MCP joint No tenderness over the a1 selvin Radiographs: 3 views of the left hand from 04/26/24 were reviewed by me today in clinic. They show no fractures or dislocations. There is basal jont arthritis, with joint space narrowing, subchondral sclerosis, and osteophyte formation. Psych Appearance: grossly normal Affect: normal affect Attitude: cooperative Office Procedures AMB Fracture Care Details: no fx, inj Fracture Billing Code: Fracture Billing Code Assessment & Plan Assessment & Plan (1) Arthritis of carpometacarpal (CMC) joint of left thumb: Code(s): M18.12 - Unilateral primary osteoarthritis of first carpometacarpal joint, left hand Category: Medical Plan Assessment & Plan: 1. Left basal joint arthritis Date of injection: 06/16/24 I educated her about this condition I discussed operative and non-operative treatment options The patient would like to proceed with an injection I discussed activity modification, they should limit or avoid any heavy or repetitive pinching or gripping activities She was fitted for a comfort cool brace to wear with daily activity She should work on ROM exercises, and avoid any gripping or strengthening activities I discussed the use of assistive devices for daily activity Injection #1: The risks and benefits of a steroid injection including but not limited to risk of damage to blood vessels, nerve, tendon, infection, skin bleaching, persistent or worsening pain, and failure to improve symptoms were discussed with the patient and they wish to proceed with the steroid injection. Once consent was obtained the skin over the dorsum of the Left basal joint was sterilely prepped. The joint was then injected with a combination of 1 mL of (40 mg/ml} Depo-Medrol and 1% plain Lidocaine. The patient appears to have tolerated the procedure well and with no complications. She had good early relief before leaving clinic today. She knows that they may not have another steroid injection into this joint for least 4 months. Scribed for Sandhya Barba MD by Esvin Esteban, medical equipment technician, on 06/16/24 at 10:05 AM, EST. Coding Level of Care Code Est Pt Level 3 (88676) Diagnoses Arthritis of carpometacarpal (CMC) joint of left thumb M18.12 CPT Codes Fracture Care - Fracture Billing Code: Fracture Billing Code ([id number])
--- OUTSIDE RECORDS SUMMARY | 2024-06-16 10:51 | XMS_ITS | Data Portability ---
Author Organization [facility] in Office Address [address] [place] [address] Assessment Encounter Date Assessment Date Assessment LastModified by Organization Details LastModified Time 07/30/2023 07/30/2023 I spent 25 minutes of ewdf-ms-aawk counselling and care coordination time with the patient. This includes reviewing medical records (medical, surgical, family and social history); updating medication and allergy information in the electronic health record; and ordering labs, medications, and education materials to continue patient care. [email or web address] Not available 07/30/2023 10:54:00 10/09/2023 10/09/2023 Today, [...] management. I spent over 15 minutes of hujk-cz-lhzd counseling and care coordination time with the [...] use and link to medullary thyroid cancer. [email or web address] Not available 10/09/2023 11:33:01 Plan of Treatment Reminders Order Date Submit Date Provider Last Modified By Organization Details Last Modified Time Details Appointments None recorded. Lab testostero ne, free + total, w/ shbg, serum [address], [address] [place], [address], 5 18:23:43 CMP, serum or plasma [address], [address] [place], [address], 5 18:23:43 Referral None recorded. Procedures None recorded. Surgeries None recorded. Imaging None recorded. Medication Orders Contrave 8 mg-90 mg tablet,ext ended release 2023 024 [facility]armacy #[id number], [address] [place], [address], 4 11:51:47 Intrarosa 6.5 mg vaginal insert 2023 024 [facility]armacy #[id number], [address] [place], [address], 4 10:38:34 estradiol 2 mg tablet 2023 024 [email or web address] [facility]/Pharmacy #[id number], [address] [place], [address], 4 14:52:14 Patient TargetsNo targets recorded. Patient Instructions Encounter Date Encounter Id Patient Instructions Last Modified By Organization Details Last Modified Time 07/30/2023 [id number] Any requested follow-up visits are listed below in the Plan of Care section. Go directly to the [employer] tile setter supervisor at [email or web address] to book a time. [email or web address] Not available 07/30/2023 08:36:14 It was a [...] not improved by that time, message the [facility] care team to discuss increasing your dose. [email or web address] Not available 07/30/2023 15:52:43 10/09/2023 [id number] Any requested follow-up visits are listed below in the Plan of Care section. Go directly to the [facility] tile setter supervisor at [email or web address] to book a time. [email or web address] Not available 10/09/2023 08:54:20 It was such [...] be sure to have access to the [facility] richelle so we can send you messages [...] You can also call/text [phone] for the [facility] Glaucoma has occurred [...] under your Learning Materials tab in the [facility] [facility] Patient Portal. Here are some suggestions: Healthy [...] any questions or concerns! Kindly, SAMANTA Beard [email or web address] Not available 10/09/2023 11:51:36 Reason for Referral None Reported. Problems Name Problem SNOMED Code Status Onset Date Resolution Date Notes Provider Name and Address Organization Details Recorded Time Menopausal symptom 71941183 Active 2023 Nicole Nevarez , ROBBY [address], [place], [address], [facility] 4 08:36:15 Menopausal flushing 358622792 [place] 2023 [place] [address] [address] [address], [facility] 4 10:14:51 Dyspareunia 88806348 Active 2023 [place] [address] [address] [place] [address], [facility] 4 10:24:48 Weight gain 8746469 Active 2023 [place] [address] [address] [place] [address], [facility] 4 15:52:49 Obesity 357942352 [place] 2023 [place] [address] [address] [place] [address], [facility] 4 11:08:21 Reduced libido 2800777 Active 2023 [place] [address] [address] [place] [address], [facility] 4 11:43:53 Mastodynia of bilateral breasts 7417732607138 9109 Active 2023 [place] [address] [address] [address], [facility] 4 11:48:50 Nausea 209116963 Active 2023 [place] [address] [address] [address], [facility] 4 16:11:32 Problem Notes None recorded. Procedures Surgical History Date Name Laterality Status Provider Name and Address Organization Details Recorded Time Date of Last Mammogram completed [place] [address] [place] [id number], [facility] 07/30/2023 09:59:02 3 Date of Last Colonoscopy completed Nicole Nevarez, RECORDIST [address] [place], [address], [facility] 07/30/2023 09:59:02 Imaging Results None recorded. Procedure Notes None recorded. Medical Equipment None Reported. Allergies Allergen ID Allergen Name Allergen Category Reaction Reaction Severity Criticality Documentation Date Start Date Code Code System Note Provider Name and Address Organization Details Recorded Time 32629 codeine medicatio n Not available Not available Not available 07/30/2023 2670 RxNorm Not Available Not Available Not Available 39781 acetamino phen / oxycodone medicatio n Not available Not available Not available 07/30/2023 90468 3 RxNorm Not Available Not Available Not Available 56871 Flagyl medicatio n Not available Not available Not available 07/30/202344540 6 RxNorm Not Available Not Available Not [...] Updated DateTime 07/30/2023 144.78 cm 27.7 kg/m2 983[address].82 [place] [address] [place], [address] 07/30/2023 10:18:20 Date Recorded Body height Body mass index (BMI) Body weight Provider Name and Address Organization Details Last Updated DateTime 10/09/2023 144.78 cm 27.7 kg/m2 620[address].82 [place] [address] [place], [address], [facility] 10/09/2023 11:05:56 Social History None [...] SNOMED-CT Code Diagnosis ICD10 Code Diagnosis Note [id number] Kaitlin Aldridge MD Main Office [address] [place] [address] 07/30/2023 09:04:01 07/31/2023 09:51:58 Menopausal flushing 567498285 N95.1 -Counselin g was provided to the [...] , water retention, anxiety and headache Dyspareunia 41262999 N94 .10 -The patient reports discomfort with intercours e, however, this has not affected her libido-She denies post-coita l bleeding-I n addition to increasing oral estradiol dose, will plan to have her start Intrarosa to enhance lubricatio n and minimize pain with sex-Discus sed use of O-nut ring if she experience s pain with deep penetratio n Weight gain 9255866 R63. 5 -Patient plans to upload results of recent lab work and return for a weight management consult [id number] Kaitlin Aldridge MD Main Office [address] [place] [address] 10/09/2023 10:05:10 10/10/2023 15:03:39 Menopausal symptom 29095557 N95.1 -VMS well-contr olled on current dose of estradiol Dyspareunia 67223008 N94 .10 -The patient reports discomfort with intercours e-She denies post-coita l bleeding-W ill plan to have her start Intrarosa to enhance lubricatio n and minimize pain with sex which has been approved by insurance- Discussed use of O-nut ring if she experience s pain with deep penetratio n Weight gain 6896577 R63. 5 -We discussed several options for [...] progress and overall health status Reduced libido 7103255 R 68.82 -The patient reports ongoing diminished libido which may be related to environmen kerwin factors, dyspareuni a, and/or hypotestos teronism-W ill plan to have the patient start Intrarosa to minimize pain during intercours e and obtain a testostero ne panel to screen for low levels Mastodynia of bilateral breasts [id number] 1198898 N64.4 -The patient reports mild but persistant [...] Guarantor Name 07/30/2023 1 [place] [id number] Margarette Pringle [id number] Margarette Pringle 10/09/2023 1 [place] [id number] Margarette Pringle [id number] Margarette Pringle Notes Date Note Type Note Provider Name and Address Organization Details Recorded Time 4 text/html Virtual Visit AttestationModality: VideoProvider Location: HomePatient State: {{AL AK AZ AR CA CO CT DE DC FL GA HI ID IL IN IA [place] LA MA* ME MN MN MS MO MT NE NV NH [...] with calcium Surgical History:-Total hysterectomy with BL sdvdhlfp-gpdjuwyuavoz-Lwm al ligation prior to hysterectomy-Carpal tunnel surgery [...] Hysterectomy-Bone density scan: 02/2023 [place] [address] [place], [address], [place] [facility] 09/01/2023 09:11:59 4 text/html Virtual Visit AttestationModality: VideoProvider Location: HomePatient State: {{AL AK AZ AR CA CO CT DE DC FL GA HI ID IL IN IA KS [place] LA MA* ME MN MN MS MO MT NE NV NH NJ NM N Y NC ND OH OK OR PA RI SC SD TN TX UT VT VA WA WV WI WY}} HPI:-Patient is a 53 year old who presents for menopausal symptom [id number] previously presented with c/o hot flashes, night [...] D3 with calciumSurgical History:-Total hysterectomy with BL jwpqgytw-yvkfitgdwwst-Gcz al ligation prior to hysterectomy-Carpal tunnel surgery [...] were within [place] [address] [place], [address], [facility] 10/09/2023 12:02:39 OBGyn Episode No OBEpisode recorded.
== END 2024-06-16 10:36 | disposition home or self-care (01) ==
LOC: HO.HOS 09:40
PROVIDERS: Visit Provider Orthopaedic Surgery
DX: M18.12 Unilateral primary osteoarthritis of first carpometacarpal joint, left hand (principal)
CPT/HCPCS: 20600; 99213

== ENCOUNTER → 2024-06-16 09:39 | Outpatient (BNVA) | payer BC, SELFPAY | PROVIDERS: Visit Provider Orthopaedic Surgery | DX: M18.12 Unilateral primary osteoarthritis of first carpometacarpal joint, left hand (principal) | CPT/HCPCS: 20600; J1010; J2003 ==

== ENCOUNTER 2024-07-24 21:57 | Observation (INO) | payer BC, SELFPAY ==
--- NOTE | ~2024-07-24 | CT_ITS ---
CLINICAL HISTORY: R facial numbness tingling CT head without contrast Comparison: None Findings: No intra-axial mass, midline shift, hydrocephalus, or acute hemorrhage. There is a old lacunar stroke versus prominent perivascular space in the right basal ganglia. No cerebral atrophy. The visualized paranasal sinuses and mastoid air cells are normal. The orbits are within normal limits. There is no acute fracture. IMPRESSION: 1. No acute intracranial findings. 2. Old lacunar stroke versus prominent perivascular space in the right basal ganglia. This document has been electronically signed by: Zac Gil MD on 07/24/2024 22:19:05
--- NOTE | ~2024-07-24 | MR_ITS ---
CLINICAL HISTORY: Syncope, tingling sensation face MR Brain without gadolinium Comparison: 07/24/2024 CT Findings: No restricted diffusion. No intra-axial mass or hemorrhage. Minimal to mild age-related cerebral hemispheric white matter ischemic changes. Right inferior lentiform nucleus perivascular space. No midline shift. No hydrocephalus. Vascular flow voids are intact. Orbital contents are unremarkable. The sinuses and mastoid air cells are clear. No focal bone lesion. IMPRESSION: Minimal to mild age-related cerebral hemispheric white matter ischemic changes. Otherwise unremarkable exam. Specifically no acute infarct. This document has been electronically signed by: Marissa Dallas MD on 07/25/2024 11:01:11
--- NOTE | ~2024-07-24 | CT_ITS ---
CLINICAL HISTORY: STROKE R facial numbness tingling CT angiography head and neck with contrast. 3D Postprocessing. Comparison: None Findings: Aortic arch and cervical great vessels are patent with no aneurysm, dissection, hemodynamically significant stenoses, or occlusion. Intracranial arteries are patent. No aneurysm, dissection, hemodynamically significant stenoses, or occlusion. No abnormal intracranial enhancement. The visualized thyroid gland is unremarkable. No cervical mass or fluid collection. Lung apices clear. No acute fracture. IMPRESSION: Patent head and neck CTA. No large vessel occlusion. This document has been electronically signed by: Zac Gil MD on 07/24/2024 23:39:06
--- NOTE | ~2024-07-24 | XR_ITS ---
CLINICAL HISTORY: Syncope 1 view chest x-ray Comparison: None Findings: Portions of the exam are obscured by overlying material. No consolidation or effusion. Heart size is normal. No acute fracture. IMPRESSION: 1. No acute findings. This document has been electronically signed by: Devon Maya MD on 07/25/2024 06:29:18
--- NOTE | 2024-07-24 22:03 | ECG_ITS ---
Test Reason : STROKE Blood Pressure : */* mmHG Vent. Rate : 74 BPM Atrial Rate : 74 BPM P-R Int : 150 ms QRS Dur : 74 ms QT Int : 376 ms P-R-T Axes : 37 -6 31 degrees QTcB Int : 417 ms Normal sinus rhythm Normal ECG No previous ECGs available Referred By: Cayla Kevin Electronically Signed By: EDVIN COOPER MD
--- NOTE | 2024-07-24 22:04 | ED.SYNCOPE ---
HPI - Syncope General Chief Complaint: Stroke Stated Complaint: stroke alert, headstrike, 9/10 pain, tingly Time Seen by Provider: 07/24/24 22:01 Source: patient and EMS Mode of arrival: EMS Limitations: no limitations History of Present Illness ED Provider: Dr. Cayla Kevin HPI narrative: Patient comes to the emergency room complaining of a syncopal episode and numbness/tingling on the upper lip of the right side of the face. Patient states that earlier today she was doing well, patient ran down the stairs than up the stairs at home. Patient states that by the time she reached the top, she remembers that she started blacking out and passed out. She does not believe that she hit her head hard. At this time no headache, no neck pain. Patient denies any history of seizures. Patient states that her only complaint at this time is numbness in the upper lip only on the right side Related Data Home Medications ?Medication ?Instructions ?Recorded ?Confirmed estradiol 1 mg tablet 1 mg PO DAILY 08/05/22 06/04/24 Previous Rx's ?Medication ?Instructions ?Recorded fluticasone propionate 50 1 spray intranasal BID #48 grams 09/25/22 mcg/actuation nasal spray,suspension (Flonase Allergy Relief) albuterol sulfate 90 mcg/actuation 2 inh inhalation Q6-8H PRN 04/18/23 aerosol inhaler shortness of breath or wheezing #8.5 grams meloxicam 15 mg tablet 15 mg PO DAILY #30 tabs 02/23/24 Arnuity Ellipta 100 mcg/actuation 1 inh inhalation DAILY #90 ea 06/04/24 powder for inhalation (fluticasone furoate) cholestyramine-aspartame 4 gram See Rx Instructions PO DAILY #180 06/04/24 oral powder for susp in a packet ea omeprazole 20 mg capsule,delayed 20 mg PO DAILY #90 caps 07/14/24 release Allergies Allergy/AdvReac Type Severity Reaction Status Date / Time codeine Allergy Intermediate hives Verified 07/24/24 22:24 [From Tylenol-Codeine #3] metronidazole [From FLAGYL] Allergy Intermediate Hives Verified 07/24/24 22:24 oxycodone [From PERCOCET] Allergy Intermediate Hives Verified 07/24/24 22:24 Codeine Allergy Intermediate Hives Uncoded 07/24/24 22:24 Review of Systems Review of Systems: Constitutional : No Weight loss, No Fever, No Chills, No Night Sweats, No Fatigue, No Malaise ENT/Mouth : No Hearing loss, No Ear Pain, No Nasal Congestion, No Sinus Pain, No Hoarseness, No sore throat, No Rhinorrhea, No Swallowing Difficulty Eyes: No Eye Pain, No Swelling, No Redness, No Foreign Body, No Discharge, No Vision Changes Cardiovascular : No Chest Pain, No SOB, No Dyspnea on Exertion, No Orthopnea, No Edema, No Palpitations Respiratory : No Cough, No Sputum, No Wheezing, No Smoke Exposure, No Dyspnea Gastrointestinal : No Nausea, No Vomiting, No Diarrhea, No Constipation, No abdominal Pain, No Hematochezia, No Melena Genitourinary : no irregular bleeding, No Dysuria, No Urinary Frequency, No Hematuria, No Urinary Incontinence, No Urgency, No Flank Pain, No Urinary Flow Changes, No Hesitancy Musculoskeletal : No joint pain, No Myalgias, No Joint Swelling Skin : No Skin Lesions, No rash Neuro : No Weakness, No Numbness, complaining of right upper lip numbness tingling, complaining of 1 syncopal episode today, No Dizziness, No Headache Psych : No Anxiety/Panic, No Depression, No SI/HI/AH/VH, No Social Issues, Heme/Lymph: No Bruising, No Bleeding,No Lymphadenopathy Endocrine : No Polyuria, No Polydipsia, No Temperature Intolerance [facility] Past Medical History Medical History Asthma GERD (gastroesophageal reflux disease) Surgical History H/O total hysterectomy (~2004) Hx of endoscopy Hx of cholecystectomy Hx of colonoscopy Family History Family History Father Diabetes Hypertension Mother Hypertension COPD (chronic obstructive pulmonary disease) Mental health disorder Social History Social History Housing: Apartment Patient Tobacco Use Status: Never used Tobacco e-Cigarette/Vaping Use: Never Used Advance Directives: No Advance Directives Information Provided: Yes Do you have a plan to hurt others: No Plan Patient : No service: No Current occupational status: employed 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 Oriented X3. No acute distress. Eyes: Pupils equal, round and reactive to light. ENT: Pharynx normal. Neck: Normal inspection. Neck supple. No lymph nodes noted. No crepitus CVS: Normal heart rate and rhythm. Pulses normal. Normal S1 and S2 Respiratory: No respiratory distress. Breath sounds normal. No Wheezing. No rales Abdomen: Soft and nontender. No rigidity. No distention. Skin: Skin warm and dry. Normal skin color. Normal skin turgor. Extremities: No lower extremity edema. No Lacerations. No Rash Neuro: Oriented X 3. No motor deficit. No sensory deficit. Moving all extremities. No slurred speech. CN 2 through 12 grossly intact, no mouth drooping, completely normal speech Psych: calm, cooperative, normal affect NIH Stroke Scale Internal: Initial- Upon Arrival Level of Consciousness: Alert Level of Consciousness Questions: Answers both questions correctly Level of Consciousness Commands: Performs both tasks correctly Best Gaze: Normal Visual: No visual loss Facial Palsy: Normal Motor Arm (Right): No drift Motor Arm (Left): No drift Motor Leg (Right): No drift Motor Leg (Left): No drift Limb Ataxia: Absent Sensory: Normal Best Language: No aphasia Dysarthia: Normal Extinction and Inattention: No abnormality Score: 0 Course Course Course Narrative: The patient is getting a CT scan of the head and neck labs imaging and EKG pending Orthostatic vitals pending Medications Administered Discontinued Medications Generic Name Dose Route Start Last Admin Trade Name Elielq PRN Reason Stop Dose Admin Acetaminophen 975 mg 07/24/24 23:22 07/24/24 23:35 Acetaminophen 325 Mg Tablet PO 07/24/24 23:23 975 mg ONCE ONE Administration Iohexol 65 ml 07/24/24 22:17 07/24/24 22:18 Iohexol 350 Mg/Ml 100 Ml Infus..Btl IV 07/24/24 22:18 65 ml ONCE ONE Administration Ondansetron HCl 4 mg 07/24/24 23:27 07/24/24 23:36 Ondansetron Hcl 4 Mg/2 Ml Vial IVPUSH 07/24/24 23:28 4 mg ONCE ONE Administration Medical Decision Making Medical Decision Making [facility] Narrative: On arrival, patient's NIH score is 0 Patient states that she has history of running low blood pressures below 110 systolic. Patient states that in the past she has had several near syncopal episodes but has never passed out. My interpretation of labs: No significant abnormality in patient's hematology and chemistry, normal troponin, urinalysis negative for UTI, urine toxicology negative for drugs of abuse, negative ETOH CT scan of the head does not show any acute intracranial finding, however there might be an old lacunar stroke versus prominent perivascular space in the right basal ganglia. Patent head and neck CTA, no large vessel occlusion Patient will need an MRI to differentiate a lacunar stroke versus perivascular space. Patient's vitals are stable I discussed the patient with Dr. Schroeder from the Medicine team Differential Diagnosis Differential Diagnoses: The differential diagnosis associated with the presentation includes (TIA, syncopal episode, CVA) Admission/Observation Consideration of admission/observation: Escalation of care including admission/observation considered Consult Healthcare Provider Management of the patient was discussed with: Hospitalist Lab Data [facility] Lab Attestation statement: I reviewed the patient's lab results. 07/24/24 22:28 07/24/24 22:28 Labs: Lab Results 07/24/24 07/24/24 07/24/24 Range/Units 22:02 22:03 22:28 WBC 7.8 (4.8-10.8) X10*3/uL RBC 4.70 (4.20-5.50) X10*6/uL Hgb 13.7 (12.0-16.0) g/dl Hct 39.7 (37.0-47.0) % MCV 84.5 (80.0-98.0) fL MCH 29.1 (27.0-33.0) pg MCHC 34.5 (31.0-35.0) g/dl RDW 12.4 (11.0-16.0) % Plt Count 210 (160-400) X10*3/uL MPV 10.9 (9.4-12.3) fL Immature Gran % (Auto) 0.1 (0.0-0.4) % Neut % (Auto) 57.2 (45-73) % Lymph % (Auto) 33.4 (20-40) % [place] % (Auto) 7.3 (2-11) % Eos % (Auto) 1.7 (0-4) % Baso % (Auto) 0.3 (0-2) % Lymph # (Auto) 2.6 (1.2-4.9) X10*3/uL [place] # (Auto) 0.6 (0.1-1.2) X10*3/uL Eos # (Auto) 0.1 (0.0-0.4) X10*3/uL Baso # (Auto) 0.0 (0.0-0.2) X10*3/uL Abs Immat Gran (auto) 0.01 (0.00-0.03) X10*3/uL Absolute Neuts (auto) 4.5 (2.0-8.3) x10*3/uL Absolute Nucleated RBC 0.000 (0.0-0.012) X10*3/uL Nucleated RBC % (auto) 0.0 (0.0-0.2) /100WBC Whole Blood PT 10.9 L (11.1-13.5) sec Whole Blood INR 0.9 (0.9-1.1) Sodium 138 (135-145) mmol/L Potassium 3.5 (3.3-5.1) mmol/L Chloride 107 (96-108) mmol/L Carbon Dioxide 23 (22-29) mmol/L Anion Gap 12 (12-20) BUN 19 H (9-16) mg/dL Creatinine 0.76 (0.5-1.4) mg/dL Estim Creat Clear Calc 60.4 Estimated GFR > 60 POC Glucose 124 H (60-115) mg/dL Random Glucose 104 (60-115) mg/dL Calcium 9.1 (8.4-10.2) mg/dL Total Bilirubin 0.2 (0.0-1.0) mg/dL Direct Bilirubin < 0.2 (0.0-0.5) mg/dL AST 23 (5-31) U/L ALT 29 (0-31) U/L Alkaline Phosphatase 69 (39-117) U/L Troponin I High Sens < 2.7 (<3.5-17.0) ng/L Total Protein 6.7 (6.5-8.0) g/dL Albumin 4.1 (3.5-5.0) g/dL Urine Color Urine Appearance Urine pH (5.0-9.0) Ur Specific [place] (1.005-1.025) Urine Protein (Neg-Trace) mg/dL Urine Glucose (UA) (Negative) mg/dL Urine Ketones (Negative) mg/dL Urine Blood (Negative) Urine Nitrite (Negative) Ur Leukocyte Esterase (Negative) Urine Opiates Screen (Not Detect) Ur Buprenorphine Scrn (Not Detect) ng/mL Ur Oxycodone Screen (Not Detect) ng/mL Urine Methadone Screen (Not Detect) ng/mL Urine Fentanyl Screen (Not Detect) Ur Barbiturates Screen (Not Detect) Ur Phencyclidine Scrn (Not Detect) Ur Amphetamines Screen (Not Detect) U Benzodiazepines Scrn (Not Detect) Urine Cocaine Screen (Not Detect) U Marijuana (THC) Screen (Not Detect) Ethyl Alcohol < 10 mg/dL 07/24/24 Range/Units 23:34 WBC (4.8-10.8) X10*3/uL RBC (4.20-5.50) X10*6/uL Hgb (12.0-16.0) g/dl Hct (37.0-47.0) % MCV (80.0-98.0) fL MCH (27.0-33.0) pg MCHC (31.0-35.0) g/dl RDW (11.0-16.0) % Plt Count (160-400) X10*3/uL MPV (9.4-12.3) fL Immature Gran % (Auto) (0.0-0.4) % Neut % (Auto) (45-73) % Lymph % (Auto) (20-40) % [place] % (Auto) (2-11) % Eos % (Auto) (0-4) % Baso % (Auto) (0-2) % Lymph # (Auto) (1.2-4.9) X10*3/uL [place] # (Auto) (0.1-1.2) X10*3/uL Eos # (Auto) (0.0-0.4) X10*3/uL Baso # (Auto) (0.0-0.2) X10*3/uL Abs Immat Gran (auto) (0.00-0.03) X10*3/uL Absolute Neuts (auto) (2.0-8.3) x10*3/uL Absolute Nucleated RBC (0.0-0.012) X10*3/uL Nucleated RBC % (auto) (0.0-0.2) /100WBC Whole Blood PT (11.1-13.5) sec Whole Blood INR (0.9-1.1) Sodium (135-145) mmol/L Potassium (3.3-5.1) mmol/L Chloride (96-108) mmol/L Carbon Dioxide (22-29) mmol/L Anion Gap (12-20) BUN (9-16) mg/dL Creatinine (0.5-1.4) mg/dL Estim Creat Clear Calc Estimated GFR POC Glucose (60-115) mg/dL Random Glucose (60-115) mg/dL Calcium (8.4-10.2) mg/dL Total Bilirubin (0.0-1.0) mg/dL Direct Bilirubin (0.0-0.5) mg/dL AST (5-31) U/L ALT (0-31) U/L Alkaline Phosphatase (39-117) U/L Troponin I High Sens (<3.5-17.0) ng/L Total Protein (6.5-8.0) g/dL Albumin (3.5-5.0) g/dL Urine Color Yellow Urine Appearance Clear Urine pH 5.5 (5.0-9.0) Ur Specific E[place]ile >= 1.030 H (1.005-1.025) Urine Protein Negative (Neg-Trace) mg/dL Urine Glucose (UA) Negative (Negative) mg/dL Urine Ketones Negative (Negative) mg/dL Urine Blood Negative (Negative) Urine Nitrite Negative (Negative) Ur Leukocyte Esterase Negative (Negative) Urine Opiates Screen Not Detected (Not Detect) Ur Buprenorphine Scrn Not Detected (Not Detect) ng/mL Ur Oxycodone Screen Not Detected (Not Detect) ng/mL Urine Methadone Screen Not Detected (Not Detect) ng/mL Urine Fentanyl Screen Not Detected (Not Detect) Ur Barbiturates Screen Not Detected (Not Detect) Ur Phencyclidine Scrn Not Detected (Not Detect) Ur Amphetamines Screen Not Detected (Not Detect) U Benzodiazepines Scrn Not Detected (Not Detect) Urine Cocaine Screen Not Detected (Not Detect) U Marijuana (THC) Screen Not Detected (Not Detect) Ethyl Alcohol mg/dL Independent Interpretation I performed an independent interpretation of an: CT Scan Radiology Impression Discussion of test interpretation with radiology: I have reviewed the radiologist's reading. Radiologist Impression: Aortic arch and cervical great vessels are patent with no aneurysm, dissection, hemodynamically significant stenoses, or occlusion. Intracranial arteries are patent. No aneurysm, dissection, hemodynamically significant stenoses, or occlusion. No abnormal intracranial enhancement. The visualized thyroid gland is unremarkable. No cervical mass or fluid collection. Lung apices clear. No acute fracture. IMPRESSION: Patent head and neck CTA. No large vessel occlusion. Critical Care Time Critical Care Time Critical Care Time: Yes Total Critical Care Time: 60 Attestation: I have personally provided critical care time. Time includes review of lab data, radiology results, discussion with consultants, and monitoring for potential decompensation. Intervention performed as documented. Discharge Plan Discharge Clinical Impression: Brain TIA Patient Disposition: Admitted As Inpatient Prescriptions: No Action fluticasone propionate [Flonase Allergy Relief] 50 mcg/actuation spray,suspension 1 spray intranasal BID Qty: 48 3RF Rx Instructions: administer into each nostril albuterol sulfate 90 mcg/actuation HFA aerosol inhaler 2 inh inhalation Q6-8H PRN (Reason: shortness of breath or wheezing) Qty: 8.5 4RF meloxicam 15 mg tablet 15 mg PO DAILY Qty: 30 1RF omeprazole 20 mg capsule,delayed release(DR/EC) 20 mg PO DAILY Qty: 90 3RF Arnuity Ellipta 100 mcg/actuation blister with device 1 inh inhalation DAILY Qty: 90 5RF cholestyramine-aspartame 4 gram powder in packet See Rx Instructions PO DAILY Qty: 180 3RF Rx Instructions: 4 gr orally daily; estradiol 1 mg tablet 1 mg PO DAILY Print Language: Croatian
[2024-07-24 22:07] LABS: Glucose, Whole Blood 124 mg/dL (60-115)
[2024-07-24 22:08] LABS: Prothrombin Time Whole Bld POC 10.9 sec (11.1-13.5); ~PT, ~INR - Anti Coag Clinic 0.9 (0.9-1.1)
[2024-07-24] MEDS: iohexoL 350 MG/ML 100 ML INFUS..BTL 65 ML IV (22:18)
[2024-07-24 22:22] VITALS: BP 123/78; PULSE 76; PULSE 79; RESP 14; TEMP 36.6; O2SAT 99; BMI 25.7
[2024-07-24 22:31] LABS: MANUAL DIFF FLAG NO
[2024-07-24 22:33] LABS: Basophils Percent Auto 0.3 % (0-2); Eosinophils Absolute Auto 0.1 X10*3/uL (0.0-0.4); Eosinophils Percent Auto 1.7 % (0-4); Hematocrit 39.7 % (37.0-47.0); Hemoglobin 13.7 g/dl (12.0-16.0); Imm Gran Abs Auto 0.01 X10*3/uL (0.00-0.03); Imm Gran Pct Auto 0.1 % (0.0-0.4); Lymphocytes Absolute Auto 2.6 X10*3/uL (1.2-4.9); Lymphocytes Percent Auto 33.4 % (20-40); Mean Corpuscular HGB Conc 34.5 g/dl (31.0-35.0); Mean Corpuscular Hemoglobin 29.1 pg (27.0-33.0); Mean Corpuscular Volume 84.5 fL (80.0-98.0); Mean Platelet Volume 10.9 fL (9.4-12.3); Monocytes Absolute Auto 0.6 X10*3/uL (0.1-1.2); Monocytes Percent Auto 7.3 % (2-11); Neutrophils Absolute Auto 4.5 x10*3/uL (2.0-8.3); Neutrophils Percent Auto 57.2 % (45-73); Platelet Count 210 X10*3/uL (160-400); Red Cell Distribution Width 12.4 % (11.0-16.0); White Blood Count 7.8 X10*3/uL (4.8-10.8)
--- NOTE | 2024-07-24 22:37 | PC.NURSE ---
Pt is aox3, resting at the bedside. VSS. NSR on monitor with HR 80's. 20G on L AC placed by EMS. Family at bedside reports pt was at home and stated feeling dizzy and fell backward, hitting and sliding down a wall. Pt does not recall this event. Pt appears to be lethargic. Monitoring is ongoing.
[2024-07-24 22:44] LABS: Ethanol < 10 mg/dL
[2024-07-24 22:47] LABS: Alanine Aminotransferase 29 U/L (0-31); Albumin Level 4.1 g/dL (3.5-5.0); Alkaline Phosphatase 69 U/L (39-117); Anion Gap 12 (12-20); Aspartate Amino Transferase 23 U/L (5-31); Bilirubin Direct < 0.2 mg/dL (0.0-0.5); Bilirubin Total 0.2 mg/dL (0.0-1.0); Blood Urea Nitrogen 19 mg/dL (9-16); Calcium 9.1 mg/dL (8.4-10.2); Carbon Dioxide 23 mmol/L (22-29); Chloride 107 mmol/L (96-108); Creatinine Clr Calc Pharmacy 60.4; Estimated Glomerular Filt Rate > 60; Glucose Random 104 mg/dL (60-115); Potassium 3.5 mmol/L (3.3-5.1); Sodium 138 mmol/L (135-145); Total Protein 6.7 g/dL (6.5-8.0)
[2024-07-24 22:56] LABS: Troponin-I High Sensitivity < 2.7 ng/L (<3.5-17.0)
[2024-07-24 23:28] VITALS: BP 111/66; PULSE 67
[2024-07-24 23:29] VITALS: BP 107/68; PULSE 69
[2024-07-24 23:30] VITALS: BP 109/72; PULSE 75
[2024-07-24] MEDS: Acetaminophen 325 MG TABLET 975 MG PO (23:35)
[2024-07-24] MEDS: ondansetron HCL 4 MG/2 ML VIAL IVPUSH (23:36)
[2024-07-24 23:41] LABS: Appearance Urine Clear; Color Urine Yellow; Glucose Urine UA Negative (Negative); Leukocyte Esterase Urine Negative (Negative); Nitrite Urine Negative (Negative); PH 5.5 (5.0-9.0); Specific Gravity - Urine >= 1.030 (1.005-1.025); Urine Blood Negative (Negative); Urine Ketones Negative (Negative); Urine Protein Negative (Neg-Trace)
[2024-07-24 23:53] LABS: Amphetamine Screen Urine Not Detected (Not Detect); Barbiturates, Urine Not Detected (Not Detect); Benzodiazepines Screen Urine Not Detected (Not Detect); Buprenorphine Scr Not Detected (Not Detect); Cannabinoid Screen Urine Not Detected (Not Detect); Cocaine Screen Urine Not Detected (Not Detect); Fentanyl, urine Not Detected (Not Detect); Methadone Screen, Urine Not Detected (Not Detect); Opiate Screen Urine Not Detected (Not Detect); Oxycodone Screen Urine Not Detected (Not Detect); Phencyclidine Screen Urine Not Detected (Not Detect)
[2024-07-25] VITALS (8 sets, daily range): BP systolic 98–109; BP diastolic 57–68; PULSE 61–78; RESP 14–16; TEMP 36.5–36.7; O2SAT 96–98
--- NOTE | 2024-07-25 01:51 | PC.NURSE ---
pt was able to ambulate to the bathroom with RN. reported no dizziness or lightheadness. will continue to monitor.
--- NOTE | 2024-07-25 03:47 | P.HPHOSP_ITS ---
History of Present Illness Date of Service: 07/25/24 Attending physician on admission: Shaye Whiting Chief Complaint: Lost of consciousness Margarette Pringle is a very pleasant 54 years old woman with past medical history significant for GERD and asthma was brought to the emergency department after she had an events of loss of consciousness last night around 9 p.m. the events with weakness by patient's daughter. Patient said that this event happened after she woke up stairs. She denied any symptoms preceding this event such as palpitations, sweating, chest pain or nausea but experienced dimming of vision. She stroke her head upon falling. Upon regaining consciousness she feels some perioral numbness in the pressure-like pain in the back of her head/occipital region. Seizure activity was not reported. Patient denied any focal weakness, speech difficulty, swallowing difficulty or acute visual disturbances. She also denied any chest pain, shortness on breath, cough, fever, chills, abdominal pain, nausea, vomiting or diarrhea. She did not report any pain with urination. There is no history of tobacco smoking, alcohol abuse or illicit drug use. Patient denied any history of congestive heart failure, stroke, type 2 diabetes mellitus, essential hypertension, arrhythmias, hyperlipidemia or kidney disease. She denies any similar events in the past. Past surgical history is remarkable for cholecystectomy, hysterectomy with bilateral salpingo-oophorectomy and carpal tunnel. She has not been taking any new medication and does not take diuretics or anti-HTN agents. In the ED, she was found to have normal vital signs. Orthostatic vital signs are negative. CBC and CMP are essentially normal. UA does not show finding consistent with UTI, specific gravity noted to be elevated. Toxicology is negative and ETOH level < 10. Head and neck CTA showed no acute pathology. I did not appreciate intracranial bleeding in his CTA. ECG showed normal sinus rhythm without evidence of ischemia. ED tx: Acetaminophen 975 mg p.o., Zofran. Review of Systems 2 Review of Systems: All 12 systems were reviewed and normal except as noted in HPI. [facility] Medical History Asthma GERD (gastroesophageal reflux disease) Family History Father Diabetes Hypertension Mother Hypertension COPD (chronic obstructive pulmonary disease) Mental health disorder Surgical History H/O total hysterectomy (~2004) Hx of endoscopy Hx of cholecystectomy Hx of colonoscopy Social History Housing: Apartment Patient Tobacco Use Status: Never used Tobacco e-Cigarette/Vaping Use: Never Used Advance Directives: No Advance Directives Information Provided: Yes Do you have a plan to hurt others: No Plan Patient : No service: No Current occupational status: employed 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 Cognitive needs: No Hearing needs: No Vision needs: Yes Meds Allergies Allergy/AdvReac Type Severity Reaction Status Date / Time codeine Allergy Intermediate hives Verified 07/24/24 22:24 [From Tylenol-Codeine #3] metronidazole [From FLAGYL] Allergy Intermediate Hives Verified 07/24/24 22:24 oxycodone [From PERCOCET] Allergy Intermediate Hives Verified 07/24/24 22:24 Codeine Allergy Intermediate Hives Uncoded 07/24/24 22:24 Active Medications: Current Medications Acetaminophen (Acetaminophen 325 Mg Tablet) 975 mg PO Q6H PRN PRN Reason: Pain, Mild 1-3,fever,headache Calcium Carbonate (Calcium Carbonate 750 Mg Tab.Chew) 750 mg PO Q4H PRN PRN Reason: Heartburn Magnesium Hydroxide (Milk Of Magnesia 30 Ml Oral.Susp) 30 ml PO DAILY PRN PRN Reason: Constipation Melatonin (Melatonin 3 Mg Tablet) 6 mg PO BEDTIME PRN PRN Reason: Insomnia Sodium Chloride (0.9 % Sodium Chloride Flush 3 Ml Syringe) 3 ml IVFLUSH [facility] Home Medications ?Medication ?Instructions ?Recorded ?Confirmed ?Last Taken ?Type estradiol 1 mg tablet 1 mg PO DAILY 08/05/22 06/04/24 Unknown History Physical Exam 2 Vital Signs and Narrative: Vital Signs: Last Vital Signs Temp 97.8 F 07/25/24 00:06 Pulse 76 07/25/24 00:06 Resp 16 07/25/24 00:06 BP 105/58 L 07/25/24 00:06 Pulse Ox 96 07/25/24 00:06 O2 Del Method Room Air 07/25/24 00:06 BMI result Body Mass Index 25.7 Constitutional - Awake and Alert, No apparent distress. Pleasant. Cooperative. HEENT - PERRLA, EOMI. Heart - S1S2, RRR, No murmurs Lungs - Normal lung expansion, Normal respiratory effort, No respiratory distress, CTA bilaterally Abdomen - Nontenderness. Extremities - no calf tenderness bilaterally, no swelling Musculoskeletal - Normal inspection, normal ROM Skin - Warm/Dry. No jaundice. No pallor. Neurological - Alert & oriented x3, CN III-XII in tact, 5/5 strength BUE and BLE. Psychological - Appropriate affect Results Labs 07/24/24 22:28 07/24/24 22:28 Labs: Laboratory Results - last 24 hr 07/24/24 07/24/24 07/24/24 22:02 22:03 22:28 MCV 84.5 MCH 29.1 MCHC 34.5 RDW 12.4 Plt Count 210 MPV 10.9 Immature Gran % (Auto) 0.1 Neut % (Auto) 57.2 Lymph % (Auto) 33.4 [place] % (Auto) 7.3 Eos % (Auto) 1.7 Baso % (Auto) 0.3 Lymph # (Auto) 2.6 [place] # (Auto) 0.6 Eos # (Auto) 0.1 Baso # (Auto) 0.0 Abs Immat Gran (auto) 0.01 Absolute Neuts (auto) 4.5 Absolute Nucleated RBC 0.000 Nucleated RBC % (auto) 0.0 Whole Blood PT 10.9 L Whole Blood INR 0.9 Anion Gap 12 Estim Creat Clear Calc 60.4 Estimated GFR > 60 POC Glucose 124 H Random Glucose 104 Calcium 9.1 Total Bilirubin 0.2 Direct Bilirubin < 0.2 AST 23 ALT 29 Alkaline Phosphatase 69 Troponin I High Sens < 2.7 Total Protein 6.7 Albumin 4.1 Urine Color Urine Appearance Urine pH Ur Specific [place] Urine Protein Urine Glucose (UA) Urine Ketones Urine Blood Urine Nitrite Ur Leukocyte Esterase Urine Opiates Screen Ur Buprenorphine Scrn Ur Oxycodone Screen Urine Methadone Screen Urine Fentanyl Screen Ur Barbiturates Screen Ur Phencyclidine Scrn Ur Amphetamines Screen U Benzodiazepines Scrn Urine Cocaine Screen U Marijuana (THC) Screen Ethyl Alcohol < 10 07/24/24 23:34 MCV MCH MCHC RDW Plt Count MPV Immature Gran % (Auto) Neut % (Auto) Lymph % (Auto) [place] % (Auto) Eos % (Auto) Baso % (Auto) Lymph # (Auto) [place] # (Auto) Eos # (Auto) Baso # (Auto) Abs Immat Gran (auto) Absolute Neuts (auto) Absolute Nucleated RBC Nucleated RBC % (auto) Whole Blood PT Whole Blood INR Anion Gap Estim Creat Clear Calc Estimated GFR POC Glucose Random Glucose Calcium Total Bilirubin Direct Bilirubin AST ALT Alkaline Phosphatase Troponin I High Sens Total Protein Albumin Urine Color Yellow Urine Appearance Clear Urine pH 5.5 Ur Specific [place] >= 1.030 H Urine Protein Negative Urine Glucose (UA) Negative Urine Ketones Negative Urine Blood Negative Urine Nitrite Negative Ur Leukocyte Esterase Negative Urine Opiates Screen Not Detected Ur Buprenorphine Scrn Not Detected Ur Oxycodone Screen Not Detected Urine Methadone Screen Not Detected Urine Fentanyl Screen Not Detected Ur Barbiturates Screen Not Detected Ur Phencyclidine Scrn Not Detected Ur Amphetamines Screen Not Detected U Benzodiazepines Scrn Not Detected Urine Cocaine Screen Not Detected U Marijuana (THC) Screen Not Detected Ethyl Alcohol Assessment and Plan (1) Transient loss of consciousness: Status: Acute (2) Lip numbness: Status: Acute Plan Margarette Pringle is a 54 y/o woman presents with: * Transient loss of consciousness, ?exertional (walking up the stairs) vs vasovagal syncope. Observation under hospitalist service. Orthostatic VS negative. Telemetry. Recheck orthostaric VS q shift. Check lipid panel, hemoglobin A1c and d-dimer. Check TTE. Cardiology consult. * Elevated urine SG. Likely related to IV contrast or mild dehydration. NS 500 ml bolus. * ?Right upper lip numbness ?TIA. Brain MRI w/o IV contrast. * Asthma. Continue home meds * GERD. Continue omeprazole. DVT prophylaxis: Low risk. Code status: Full Quality Stroke Does the patient have a stroke diagnosis?: No VTE Prior VTE?: No VTE Risk Level:: Medical - low VTE Device Contraindication: Treatment Not Indicated VTE Drug Contraindication: Treatment Not Indicated
[2024-07-25] MEDS: Lactated Ringers 500 ML 999 ML IV (05:04)
[2024-07-25 05:06] LABS: D Dimer High Sensitivity < 150 NG/ML
[2024-07-25 05:09] LABS: Cholesterol 158 mg/dL (<200); HDL Cholesterol 59 mg/dL (>40); LDL Cholesterol Calculated 83 mg/dL (<100); Triglycerides 83 mg/dL (<150)
[2024-07-25 05:25] LABS: Estimated Average Glucose 97 mg/dL; Hemoglobin A1C 107.3896 umol/L; Thyroid Stimulating Hormone 2.99 uIU/mL (0.32-4.0)
[2024-07-25 05:42] LABS: Reflex LDLD? No
--- NOTE | 2024-07-25 06:22 | PC.NURSE ---
MRI form completed and faxed.
--- NOTE | 2024-07-25 07:53 | PM.EVENT ---
Event Note Date of Service: 07/25/24 Event Note: patient seen & examined vitals reviewed Time Spent With Patient Time: Total time managing care of this patient today ____ minutes.
--- NOTE | 2024-07-25 08:03 | PHA.MEDREC ---
Addendum entered by Xu Galvez PharmD 07/25/24 08:17: reviewed Original Note: Pharmacy Consult ? Medication Reconciliation Pharmacy has completed the medication reconciliation. Spoke with patient to confirm medications. She reports estradiol 1 mg at bedtime, she does not cut the 2 mg tabs in half, restarted 1 mg she had at home herself. She had a cholestyramine packet this morning. She has not picked up her new eye drops yet. She is finished with erythromycin ointment.
[2024-07-25 09:27] LABS: Glucose, Whole Blood 75 mg/dL (60-115)
[2024-07-25] MEDS: Ascorbic Acid 500 MG TABLET 1000 MG PO (12:16)
[2024-07-25] MEDS: Omeprazole 20 MG CAPSULE.DR PO (12:16)
[2024-07-25] MEDS: Fluticasone Propionate Nasal 16 GM SPRAY 1 SPRAY NOSTRIL-B (12:45)
--- NOTE | 2024-07-25 14:00 | P.DS_ITS ---
DS: Providers Provider Date of Service: 07/25/24 Date of admission: 07/25/24 03:05 Date of discharge: 07/25/24 Primary care physician: Cher Wallace MD Consults: 07/25/24 04:24 Consult to Cardiology Routine Consulting Provider: [facility] Reason for consultation: Syncope Has provider been notified: Yes Attending physician on discharge: Jimena Larson Discharging clinician: Jimena Larson DS: Diagnosis Discharge Diagnosis (1) Transient loss of consciousness: Status: Acute (2) Lip numbness: Status: Acute DS: Summary Hospital Course Hospital Course: hpi:54 years old woman with past medical history significant for GERD and asthma was brought to the emergency department after she had an events of loss of consciousness last night around 9 p.m. the events with weakness by patient's daughter. Patient said that this event happened after she woke up stairs. She denied any symptoms preceding this event such as palpitations, sweating, chest pain or nausea but experienced dimming of vision. She stroke her head upon falling. Upon regaining consciousness she feels some perioral numbness in the pressure-like pain in the back of her head/occipital region. Seizure activity was not reported. Patient denied any focal weakness, speech difficulty, swallow ing difficulty or acute visual disturbances. She also denied any chest pain, shortness on breath, cough, fever, chills, abdominal pain, nausea, vomiting or diarrhea. She did not report any pain with urination. There is no history of tobacco smoking, alcohol abuse or illicit drug use. Patient denied any history of congestive heart failure, stroke, type 2 diabetes mellitus, essential hypertension, arrhythmias, hyperlipidemia or kidney disease. She denies any similar events in the past. Past surgical history is remarkable for cholecystectomy, hysterectomy with bilateral salpingo-oophorectomy and carpal tunnel. She has not been taking any new medication and does not take diuretics or anti-HTN agents. In the ED, she was found to have normal vital signs. Orthostatic vital signs are negative. CBC and CMP are essentially normal. UA does not show finding consistent with UTI, specific gravity noted to be elevated. Toxicology is negative and ETOH level < 10. Head and neck CTA showed no acute pathology. I did not appreciate intracranial bleeding in his CTA. ECG showed normal sinus rhythm without evidence of ischemia. ED tx: Acetaminophen 975 mg p.o., Zofran. Hospital course: 54 y/o woman presents with:Transient loss of consciousness,?lip numbness , ?exertional (walking up the stairs) vs vasovagal syncope: Patient workup including CTA head, troponin, EKG, orthostasis also negative, tele seems fine: Patient was encouraged for p.o. intake and hydration. Patient is currently asymptomatic . CTA head and negative, MRI brain shows mild age-related cerebral hemispheric white matter ischemic changes. Patient was advised to take aspirin,check lipid panel outpatient with pcp. Syncope etiology unclear , possible relative orthostasis versus vasovagal. Further workup outpatient with Cardiology. plan: Patient was encouraged for p.o. intake and hydration. CTA head and negative, MRI brain shows mild age-related cerebral hemispheric white matter ischemic changes. Patient was advised to take aspirin,check lipid panel outpatient with pcp. Syncope etiology unclear , possible relative orthostasis versus vasovagal. Further workup outpatient with Cardiology. Above management discussed with the patient and her at bedside in detail length they both understand and agreement with the above plan, time spent 40 minute, all question answered, staff was present during conversation. Time Attestation Total time managing care of this patient today: 40 mintues. Discharge Coordination Time (in mins): 40 min Quality: Safe Use of Opioids Does Pt have an Active Cancer Diagnosis on the Problem List?: No Quality: Stroke Does the patient have a stroke diagnosis?: No Physical Exam Vital Signs: Vital Signs: Last Vital Signs Temp 98.1 F 07/25/24 09:21 Pulse 74 07/25/24 09:27 Resp 14 07/25/24 09:21 BP 106/68 07/25/24 09:27 Pulse Ox 98 07/25/24 09:21 O2 Del Method Room Air 07/25/24 09:21 BMI result Body Mass Index 25.7 Appearance: Alert.? Oriented X3.? cvs: rrr, [id number] . res: clear to auscultation ,no rhonchii or wheezing abd: no rebound or guarding ,nt, bs present. ext pulses present , no cyanosis . neuro: axo3 , nonfocal. DS: Data Data Completed and Pending Labs on day of discharge: Laboratory Results - last 24 hr 07/24/24 07/24/24 07/24/24 22:02 22:03 22:28 WBC 7.8 RBC 4.70 Hgb 13.7 Hct 39.7 MCV 84.5 MCH 29.1 MCHC 34.5 RDW 12.4 Plt Count 210 MPV 10.9 Immature Gran % (Auto) 0.1 Neut % (Auto) 57.2 Lymph % (Auto) 33.4 [place] % (Auto) 7.3 Eos % (Auto) 1.7 Baso % (Auto) 0.3 Lymph # (Auto) 2.6 [place] # (Auto) 0.6 Eos # (Auto) 0.1 Baso # (Auto) 0.0 Abs Immat Gran (auto) 0.01 Absolute Neuts (auto) 4.5 Absolute Nucleated RBC 0.000 Nucleated RBC % (auto) 0.0 Whole Blood PT 10.9 L Whole Blood INR 0.9 D-Dimer High Sensitivty Sodium 138 Potassium 3.5 Chloride 107 Carbon Dioxide 23 Anion Gap 12 BUN 19 H Creatinine 0.76 Estim Creat Clear Calc 60.4 Estimated GFR > 60 POC Glucose 124 H Random Glucose 104 Estimat Average Glucose Hemoglobin A1c % Calcium 9.1 Total Bilirubin 0.2 Direct Bilirubin < 0.2 AST 23 ALT 29 Alkaline Phosphatase 69 Troponin I High Sens < 2.7 Total Protein 6.7 Albumin 4.1 Triglycerides Cholesterol LDL Cholesterol, Calc HDL Cholesterol TSH Urine Color Urine Appearance Urine pH Ur Specific [place] Urine Protein Urine Glucose (UA) Urine Ketones Urine Blood Urine Nitrite Ur Leukocyte Esterase Urine Opiates Screen Ur Buprenorphine Scrn Ur Oxycodone Screen Urine Methadone Screen Urine Fentanyl Screen Ur Barbiturates Screen Ur Phencyclidine Scrn Ur Amphetamines Screen U Benzodiazepines Scrn Urine Cocaine Screen U Marijuana (THC) Screen Ethyl Alcohol < 10 07/24/24 07/25/24 07/25/24 23:34 04:34 09:20 WBC RBC Hgb Hct MCV MCH MCHC RDW Plt Count MPV Immature Gran % (Auto) Neut % (Auto) Lymph % (Auto) [place] % (Auto) Eos % (Auto) Baso % (Auto) Lymph # (Auto) [place] # (Auto) Eos # (Auto) Baso # (Auto) Abs Immat Gran (auto) Absolute Neuts (auto) Absolute Nucleated RBC Nucleated RBC % (auto) Whole Blood PT Whole Blood INR D-Dimer High Sensitivty < 150 Sodium Potassium Chloride Carbon Dioxide Anion Gap BUN Creatinine Estim Creat Clear Calc Estimated GFR POC Glucose 75 Random Glucose Estimat Average Glucose 97 Hemoglobin A1c % 5.0 Calcium Total Bilirubin Direct Bilirubin AST ALT Alkaline Phosphatase Troponin I High Sens Total Protein Albumin Triglycerides 83 Cholesterol 158 LDL Cholesterol, Calc 83 HDL Cholesterol 59 TSH 2.99 Urine Color Yellow Urine Appearance Clear Urine pH 5.5 Ur Specific [place] >= 1.030 H Urine Protein Negative Urine Glucose (UA) Negative Urine Ketones Negative Urine Blood Negative Urine Nitrite Negative Ur Leukocyte Esterase Negative Urine Opiates Screen Not Detected Ur Buprenorphine Scrn Not Detected Ur Oxycodone Screen Not Detected Urine Methadone Screen Not Detected Urine Fentanyl Screen Not Detected Ur Barbiturates Screen Not Detected Ur Phencyclidine Scrn Not Detected Ur Amphetamines Screen Not Detected U Benzodiazepines Scrn Not Detected Urine Cocaine Screen Not Detected U Marijuana (THC) Screen Not Detected Ethyl Alcohol Imaging Chest x-ray: My impression: cta head: Patent head and neck CTA. No large vessel occlusion. cxr: 1. No acute findings. mri: IMPRESSION: Minimal to mild age-related cerebral hemispheric white matter ischemic changes. Otherwise unremarkable exam. Specifically no acute infarct. Discharge Plan Discharge Anticipated Discharge Date/Time: 07/25/24 13:54 Patient Disposition: Home, Self-Care Discharge Diagnosis: syncope. Referrals: Cher Wallace MD [Primary Care Provider] - 1 Week Discharge Medications: New aspirin 81 mg capsule 81 mg PO DAILY Qty: 90 0RF Continued albuterol sulfate 90 mcg/actuation HFA aerosol inhaler 2 inh inhalation Q6-8H PRN (Reason: shortness of breath or wheezing) Qty: 8.5 4RF omeprazole 20 mg capsule,delayed release(DR/EC) 20 mg PO DAILY Qty: 90 3RF ascorbic acid (vitamin C) [Vitamin C] 1,000 mg Tablet 1 g PO DAILY black cohosh 200 mg Capsule 200 mg PO BEDTIME Cholestyramine Light 4 gram powder in packet 4 g PO DAILY meloxicam 15 mg tablet 15 mg PO DAILY PRN (Reason: Pain) fluticasone propionate [Flonase Allergy Relief] 50 mcg/actuation spray,suspension 1 spray intranasal DAILY Rx Instructions: administer into each nostril Arnuity Ellipta 100 mcg/actuation blister with device 1 inh inhalation DAILY Qty: 90 5RF estradiol 1 mg tablet 1 mg PO BEDTIME Discharge Orders: Discharge Order (Routine); Ordered 07/25/24 Ordered By: Jimena Larson Diet: Advance to usual diet Activity on Discharge: As tolerated Stand Alone Forms: Patient Portal Discharge page Print Language: [place]az[place] Care Plan Goals: As below. Health Concerns: Patient was encouraged for p.o. intake and hydration. CTA head and negative, MRI brain shows mild age-related cerebral hemispheric white matter ischemic changes. Patient was advised to take aspirin,check lipid panel outpatient with pcp. Syncope etiology unclear , possible relative orthostasis versus vasovagal. Further workup outpatient with Cardiology. Plan of Treatment: As above. Assessment: As above.
--- NOTE | 2024-07-25 14:46 | PM.CNCAR ---
History of Present Illness History of Present Illness Date of Service: 07/25/24 Requesting physician: Jimena Larson Consult reason: other (Syncope) Chief complaint: Syncope Narrative: I was consulted to see Margarette in cardiology consultation today for syncopal episode. She is a 54-year-old pleasant woman with no significant past medical history, came to the hospital after syncopal episode. She says she was watching television yesterday with her significant other and she was called up stairs to her daughter's room and she spreading up and ran up the stairs to her daughter's room. While she was stent talking to her she started complaining of lightheadedness the next thing she knows she lost consciousness. Daughter said that she banged her head to the back on the drawer and then was very pale. Patient says she was out for less than couple of minutes. She was conscious but when she woke up she had numbness around her lips and she also felt nauseous. She did not have any palpitation, chest pain, shortness of breath, seizure-like activity. She said the early in the day she had attended event and probably was little dehydrated. She says she usually runs lower blood pressure with systolic blood pressure in the 110s. She has never had any prior syncopal episodes. No prior cardiovascular history. Review of Systems Constitutional: Constitutional: Reports no additional constitutional complaints Eyes: Eyes: Reports no additional eye complaints Cardiovascular: Cardiovascular: Denies chest pain, Denies chest pain with activity, Denies leg edema, Reports lightheadedness, Reports Loss of Consciousness, Denies dyspnea and Denies dyspnea on exertion Respiratory: Respiratory: Reports no additional respiratory complaints, Denies dyspnea and Denies dyspnea on exertion Gastrointestinal: Gastrointestinal: Reports no additional gastrointestinal complaints Genitourinary: Genitourinary: Reports no additional female genitourinary complaints Musculoskeletal: Musculoskeletal: Reports no additional musculoskeletal complaints Neurologic: Reports system reviewed and no additional complaints, except as documented Psychiatric: Psychiatric: Reports no additional psychiatric complaints Endocrine: Endocrine: Reports no additional endocrine complaints Hematologic/Lymphatic: Hematologic/Lymphatic: Reports no additional hematologic/lymphatic complaints Allergic/Immunologic: Allergic/Immunologic: Reports no additional allergic/immunologic complaints PMFSH Past Medical History Medical History Asthma GERD (gastroesophageal reflux disease) Family History Family History Father Diabetes Hypertension Mother Hypertension COPD (chronic obstructive pulmonary disease) Mental health disorder Surgical History Surgical History H/O total hysterectomy (~2004) Hx of endoscopy Hx of cholecystectomy Hx of colonoscopy Social History Social History Housing: Apartment Patient Tobacco Use Status: Never used Tobacco e-Cigarette/Vaping Use: Never Used service: No Current occupational status: employed 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 Cognitive needs: No Hearing needs: No Vision needs: Yes Meds Allergies Allergy/AdvReac Type Severity Reaction Status Date / Time codeine Allergy Intermediate hives Verified 07/24/24 22:24 [From Tylenol-Codeine #3] metronidazole [From FLAGYL] Allergy Intermediate Hives Verified 07/24/24 22:24 oxycodone [From PERCOCET] Allergy Intermediate Hives Verified 07/24/24 22:24 Codeine Allergy Intermediate Hives Uncoded 07/24/24 22:24 Active Medications: Current Medications Acetaminophen (Acetaminophen 325 Mg Tablet) 975 mg PO Q6H PRN PRN Reason: Pain, Mild 1-3,fever,headache Albuterol Sulfate (Albuterol Sulfate 90 Mcg 8 Gm Inhaler) 2 puff INHALE Q6H PRN PRN Reason: shortness of breath or wheezing Ascorbic Acid (Ascorbic Acid 500 Mg Tablet) 1,000 mg PO DAILY [facility] Last Admin: 07/25/24 12:16 Dose: 1,000 mg Calcium Carbonate (Calcium Carbonate 750 Mg Tab.Chew) 750 mg PO Q4H PRN PRN Reason: Heartburn Cholestyramine Resin (Cholestyramine (With Sugar) 4 Gm Powd.Pack) 4 gm PO DAILY [facility] Estradiol (Estradiol 0.5 Mg Tablet) 1 mg PO BEDTIME JYOTHI Fluticasone Propionate (Fluticasone Propionate 100 Mcg Blst.W.Dev) 1 puff INHALE RBID [facility] Fluticasone Propionate (Fluticasone Propionate Nasal 16 Gm Stuart) 1 spray NOSTRIL-B DAILY [facility] Last Admin: 07/25/24 12:45 Dose: 1 spray Magnesium Hydroxide (Milk Of Magnesia 30 Ml Oral.Susp) 30 ml PO DAILY PRN PRN Reason: Constipation Melatonin (Melatonin 3 Mg Tablet) 6 mg PO BEDTIME PRN PRN Reason: Insomnia Naproxen (Naproxen 500 Mg Tablet) 500 mg PO BID PRN PRN Reason: Pain Omeprazole (Omeprazole 20 Mg Capsule.) 20 mg PO DAILY@0630 [facility] Last Admin: 07/25/24 12:16 Dose: 20 mg Sodium Chloride (0.9 % Sodium Chloride Flush 3 Ml Syringe) 3 ml IVFLUSH QSHIFT [facility] Last Admin: 07/25/24 06:56 Dose: Not Given Home Medications ?Medication ?Instructions ?Recorded ?Confirmed ?Last Taken ?Type estradiol 1 mg tablet 1 mg PO BEDTIME 08/05/22 07/25/24 Unknown History ascorbic acid (vitamin C) 1,000 mg 1 g PO DAILY 07/25/24 07/25/24 07/24/24 History tablet (Vitamin C) black cohosh 200 mg capsule 200 mg PO BEDTIME 07/25/24 07/25/24 Unknown History cholestyramine 4 gram oral powder 4 g PO DAILY 07/25/24 07/25/24 07/25/24 History for suspension in a packet (Cholestyramine Light) fluticasone propionate 50 1 spray intranasal DAILY 07/25/24 07/25/24 07/24/24 History mcg/actuation nasal spray,suspension (Flonase Allergy Relief) meloxicam 15 mg tablet 15 mg PO DAILY PRN Pain 07/25/24 07/25/24 Unknown History Physical Exam Vital Signs: Vital Signs: Last Vital Signs Temp 98.1 F 07/25/24 09:21 Pulse 74 07/25/24 09:27 Resp 14 07/25/24 09:21 BP 106/68 07/25/24 09:27 Pulse Ox 98 07/25/24 09:21 O2 Del Method Room Air 07/25/24 09:21 BMI result Body Mass Index 25.7 Const: General: cooperative, comfortable, no acute distress, alert, awake and Physically active Nutritional Appearance: average body habitus Orientation/consciousness: patient oriented x3 Limitations: no limitations HEENT: Head: Yes normocephalic and Yes atraumatic Neck: Neck: Yes trachea midline, Yes supple and Yes no JVD Resp: Effort & Inspection: normal respiratory effort Auscultation: clear to auscultation bilaterally Cardio: Jugular venous distension: no JVD Palpation: normal PMI Rate: regular rate Rhythm: regular rhythm Heart sounds: S1 normal heart sound present, S2 normal heart sound present, no click, no gallops, no murmurs and no rubs GI: Auscultation: normal bowel sounds Skin: General skin exam: no rashes or lesions noted Neuro: General: patient oriented x3 and no focal motor deficits Extrem: General: Yes no clubbing, cyanosis or edema Objective Labs and Meds 07/24/24 22:28 07/24/24 22:28 Lab results: Laboratory Results - last 24 hr 07/24/24 07/24/24 07/24/24 22:02 22:03 22:28 WBC 7.8 RBC 4.70 Hgb 13.7 Hct 39.7 MCV 84.5 MCH 29.1 MCHC 34.5 RDW 12.4 Plt Count 210 MPV 10.9 Immature Gran % (Auto) 0.1 Neut % (Auto) 57.2 Lymph % (Auto) 33.4 Montgomery % (Auto) 7.3 Eos % (Auto) 1.7 Baso % (Auto) 0.3 Lymph # (Auto) 2.6 Montgomery # (Auto) 0.6 Eos # (Auto) 0.1 Baso # (Auto) 0.0 Abs Immat Gran (auto) 0.01 Absolute Neuts (auto) 4.5 Absolute Nucleated RBC 0.000 Nucleated RBC % (auto) 0.0 Whole Blood PT 10.9 L Whole Blood INR 0.9 D-Dimer High Sensitivty Sodium 138 Potassium 3.5 Chloride 107 Carbon Dioxide 23 Anion Gap 12 BUN 19 H Creatinine 0.76 Estim Creat Clear Calc 60.4 Estimated GFR > 60 POC Glucose 124 H Random Glucose 104 Estimat Average Glucose Hemoglobin A1c % Calcium 9.1 Total Bilirubin 0.2 Direct Bilirubin < 0.2 AST 23 ALT 29 Alkaline Phosphatase 69 Troponin I High Sens < 2.7 Total Protein 6.7 Albumin 4.1 Triglycerides Cholesterol LDL Cholesterol, Calc HDL Cholesterol TSH Urine Color Urine Appearance Urine pH Ur Specific Cuney Urine Protein Urine Glucose (UA) Urine Ketones Urine Blood Urine Nitrite Ur Leukocyte Esterase Urine Opiates Screen Ur Buprenorphine Scrn Ur Oxycodone Screen Urine Methadone Screen Urine Fentanyl Screen Ur Barbiturates Screen Ur Phencyclidine Scrn Ur Amphetamines Screen U Benzodiazepines Scrn Urine Cocaine Screen U Marijuana (THC) Screen Ethyl Alcohol < 10 07/24/24 07/25/24 07/25/24 23:34 04:34 09:20 WBC RBC Hgb Hct MCV MCH MCHC RDW Plt Count MPV Immature Gran % (Auto) Neut % (Auto) Lymph % (Auto) Montgomery % (Auto) Eos % (Auto) Baso % (Auto) Lymph # (Auto) [place] # (Auto) Eos # (Auto) Baso # (Auto) Abs Immat Gran (auto) Absolute Neuts (auto) Absolute Nucleated RBC Nucleated RBC % (auto) Whole Blood PT Whole Blood INR D-Dimer High Sensitivty < 150 Sodium Potassium Chloride Carbon Dioxide Anion Gap BUN Creatinine Estim Creat Clear Calc Estimated GFR POC Glucose 75 Random Glucose Estimat Average Glucose 97 Hemoglobin A1c % 5.0 Calcium Total Bilirubin Direct Bilirubin AST ALT Alkaline Phosphatase Troponin I High Sens Total Protein Albumin Triglycerides 83 Cholesterol 158 LDL Cholesterol, Calc 83 HDL Cholesterol 59 TSH 2.99 Urine Color Yellow Urine Appearance Clear Urine pH 5.5 Ur Specific Cuney >= 1.030 H Urine Protein Negative Urine Glucose (UA) Negative Urine Ketones Negative Urine Blood Negative Urine Nitrite Negative Ur Leukocyte Esterase Negative Urine Opiates Screen Not Detected Ur Buprenorphine Scrn Not Detected Ur Oxycodone Screen Not Detected Urine Methadone Screen Not Detected Urine Fentanyl Screen Not Detected Ur Barbiturates Screen Not Detected Ur Phencyclidine Scrn Not Detected Ur Amphetamines Screen Not Detected U Benzodiazepines Scrn Not Detected Urine Cocaine Screen Not Detected U Marijuana (THC) Screen Not Detected Ethyl Alcohol EKG shows normal sinus rhythm with normal EKG Assessment and Plan (1) Syncope: Status: Acute Syncope in this middle-aged woman appears to be either orthostatic or vasovagal in nature. She has never had prior syncopal episodes. Mechanism of both types of syncope was discussed with her. We discussed management of this which is started with hydration and increase fluid intake. She will need workup as an outpatient. This was discussed with her. Discussed about needing an echocardiogram, Holter monitor as well as a tilt-table test to further assess for her syncopal episode. Precautions with orthostatic stress was discussed with her. She is advised to seek sitting or supine position when she gets symptoms of lightheadedness. She showed understanding and agreement. Will set up for outpatient follow-up Procedures Date of Service Date of Service: 07/25/24
== END 2024-07-25 14:48 | disposition home or self-care (01) ==
LOC: HO.ED 07-25 03:03 → HO.EDOVER 07-25 03:45
PROVIDERS: Admitting Provider Internal Medicine; Emergency Provider Emergency Medicine; PCP Internal Medicine; Visit Provider Internal Medicine
DX: R55 Syncope and collapse (principal); R20.0 Anesthesia of skin; S09.90XA Unspecified injury of head, initial encounter; W18.30XA Fall on same level, unspecified, initial encounter; Y93.89 Activity, other specified; Y92.008 Other place in unspecified non-institutional (private) residence as the place of occurrence of the external cause; Y99.9 Unspecified external cause status; K21.9 Gastro-esophageal reflux disease without esophagitis; Z79.899 Other long term (current) drug therapy
CPT/HCPCS: 36415; 70450; 70496; 70498; 70551; 71045; 80048; 80061; 80076; 80307; 81003; 82947; 83036; 84443; 84484; 85025; 85379; 85610; 93005; 96361; 96374; 99222; 99285; J2405; J7120; Q9967

== ENCOUNTER → 2024-07-24 22:01 | Outpatient (BNV) | payer BC, SELFPAY | PROVIDERS: Emergency Provider Emergency Medicine; PCP Internal Medicine; Visit Provider Radiology Diagnostic Radiology | DX: R20.2 Paresthesia of skin (principal) | CPT/HCPCS: 70496; 70498 ==

== ENCOUNTER → 2024-07-24 22:03 | Outpatient (BNV) | payer BC, SELFPAY | PROVIDERS: Admitting Provider Internal Medicine; Emergency Provider Emergency Medicine; PCP Internal Medicine; Visit Provider Internal Medicine Cardiovascular Disease | DX: I63.9 Cerebral infarction, unspecified (principal) | CPT/HCPCS: 93010 ==

== ENCOUNTER 2024-07-25 03:05 | Outpatient (BNV) | payer BC, SELFPAY | END 2024-07-25 07:00 | PROVIDERS: Admitting Provider Internal Medicine; Emergency Provider Emergency Medicine; PCP Internal Medicine; Visit Provider Specialist | DX: R55 Syncope and collapse (principal) | CPT/HCPCS: 70551; 71045 ==

== ENCOUNTER → 2024-07-25 03:05 | Outpatient (BNV) | payer BC, SELFPAY | PROVIDERS: Admitting Provider Internal Medicine; Emergency Provider Emergency Medicine; PCP Internal Medicine; Visit Provider Internal Medicine | DX: R55 Syncope and collapse (principal); R20.0 Anesthesia of skin | CPT/HCPCS: 99235; 99499 ==

== ENCOUNTER → 2024-07-25 03:05 | Outpatient (BNV) | payer BC, SELFPAY | PROVIDERS: Admitting Provider Internal Medicine; Emergency Provider Emergency Medicine; PCP Internal Medicine; Visit Provider Internal Medicine Cardiovascular Disease | DX: R55 Syncope and collapse (principal) | CPT/HCPCS: 99232 ==

== ENCOUNTER 2024-07-29 08:56 | Outpatient (AMB) | payer BC, SELFPAY ==
--- NOTE | 2024-07-29 08:57 | A.OFFPC_ITS ---
Vital Signs 07/29/24 08:58 Height 4 ft 9 in Weight 115 lb BMI 24.9 BP 104/66 Blood Pressure Location Lt brachial Position Sitting Respiration 18 Pulse 76 Pulse Source Pulse Oximeter Temp 97.7 F Temp Source Oral Pulse Oximetry (%) 94 Oxygen Delivery Method Room Air Intake Visit Reasons: Hospital follow up Intake Note: Pt is here today for a hospital follow up visit. Allergies codeine [From Tylenol-Codeine #3] Allergy (Intermediate, Verified 07/29/24 09:00) hives metronidazole [From FLAGYL] Allergy (Intermediate, Verified 07/29/24 09:00) Hives oxycodone [From PERCOCET] Allergy (Intermediate, Verified 07/29/24 09:00) Hives Codeine Allergy (Intermediate, Uncoded 07/29/24 09:00) Hives Medication List - Last Reconciled 07/29/24 by Cher Wallace MD albuterol sulfate 90 mcg/actuation 2 inhalations inhalation Q6-8H PRN Arnuity Ellipta 100 mcg/actuation (fluticasone furoate) 1 inh inhalation DAILY NS ascorbic acid (vitamin C) (Vitamin C) 1 g PO DAILY aspirin 81 mg PO DAILY black cohosh 200 mg PO BEDTIME cholestyramine (Cholestyramine Light) 4 grams PO DAILY estradiol 1 mg PO BEDTIME fluticasone propionate 50 mcg/actuation (Flonase Allergy Relief) 1 spray intranasal DAILY meloxicam 15 mg PO DAILY PRN omeprazole 20 mg PO DAILY Tobacco use date assessed: 07/29/24 Dental Screening Dental Screen Date: 06/04/24 HPI Hospital follow up HPI Details Pt presents for f/u of hospital for episode of syncope. Neuro and cardiac workup was negative. Patient was found to have low blood pressure but no orthostasis. She was evaluated by excavator operator and is scheduled for Holter and echocardiogram. Patient denies any recurrent symptoms. Chronic asthma is controlled on Arnuity. Patient has been under lot of stress she is getting in 2 weeks with wedding of 150 people present. 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 Cognitive needs: No Hearing needs: No Vision needs: Yes Questionnaire Thrive Questionnaire Date Thrive assessed: 06/04/24 I am a: Patient What is your living situation today?: I have a steady place to live Within the past 12 months, did the food you bought not last and you didn't have the money to get more?: Never true Within the past 12 months, did you worry whether your food would run out before you got money to buy more?: Never true Do you have trouble paying for medicines?: No Do you have trouble getting transportation to medical appointments?: No Do you have trouble paying your heating and electricity bill?: No Do you have trouble taking care of your child, family member or friend?: No Do you have trouble with day-to-day activities such as bathing, preparing meals, shopping, managing finances, etc.?: No Are you currently unemployed and looking for a job?: No Are you interested in more education?: No Please select the resources that you would like help with: None Currently or been in a relationship where the following occur: No concerns reported THRIVE Score: 0 TAMIA-7 AMB Questionnaire TAMIA-7 Date TAMIA - 7 assessed: 06/04/24 Source: Developed by Drs. Niles Rashid, Precious Saenz, Emir Goetz and colleagues, with an educational tom from [employer]. Review of Systems Const All systems reviewed & are unremarkable except as noted in HPI and below Eyes Reports no additional complaints ENT Reports no additional complaints Card Reports no additional complaints Resp Reports no additional complaints GI Reports no additional complaints Reports no additional complaints Physical exam (Primary Care) Vital Signs: Last Vital Signs Temp 97.7 F 07/29/24 08:58 Pulse 76 07/29/24 08:58 Resp 18 07/29/24 08:58 BP 104/66 07/29/24 08:58 Pulse Ox 94 07/29/24 08:58 Oxygen Delivery Method Room Air 07/29/24 08:58 BMI result Body Mass Index 24.9 Tobacco/Smoking Status: Tobacco use Status Tobacco use date assessed 07/29/24 07/29/24 09:04 Patient Tobacco Use Status Never used Tobacco 07/29/24 09:04 e-Cigarette/Vaping Use Never Used 07/29/24 09:04 Thrive Assessment: Date of Thrive Assessment Date Thrive assessed 06/04/24 07/29/24 09:04 Currently or been in a relationship where the following occur: No concerns reported Const General: no acute distress HENMT Head: Yes normal to inspection Face and sinus: Yes normal facial exam Mouth: Normal oral and palatal mucosa present Eyes General: appearance normal, both eyes and all related structures Neck Neck: Yes supple Resp Effort & Inspection: normal respiratory effort Auscultation: clear to auscultation bilaterally Cardio Rhythm: regular rhythm Heart sounds: S1 normal heart sound present and S2 normal heart sound present GI Inspection: Yes normal to inspection Palpation (GI): Soft to palpation Percussion: Yes normal to percussion Auscultation: normal bowel sounds General: Yes Bimanual renal exam normal bilaterally Coding Level of Care Code Est Pt Level 4 (43589) Diagnoses Syncope R55 Asthma J45.909 Assessment & Plan Assessment & Plan (1) Syncope: Comment: Admitted to [facility] for 24 hours negative neuro and cardiac workup, most likely vasovagal Code(s): R55 - Syncope and collapse Category: Medical Plan: Patient will have a echo and Holter by Cardiology. She was advised to stay well hydrated and recognize symptoms of vasovagal (2) Asthma: Code(s): J45.909 - Unspecified asthma, uncomplicated Category: Medical Plan: Continue Arnuity
[2024-07-29 08:58] VITALS: BP 104/66; PULSE 76; RESP 18; TEMP 36.5; O2SAT 94; BMI 24.9
== END 2024-07-29 12:41 | disposition home or self-care (01) ==
LOC: HO.HMCC 08:57
PROVIDERS: PCP Internal Medicine; Visit Provider Internal Medicine
DX: R55 Syncope and collapse (principal); J45.909 Unspecified asthma, uncomplicated

== ENCOUNTER → 2024-07-29 08:56 | Outpatient (BNVA) | payer BC, SELFPAY | PROVIDERS: PCP Internal Medicine; Visit Provider Internal Medicine ==

== ENCOUNTER → 2024-08-02 13:21 | Outpatient (REF) | payer BC, SELFPAY ==
--- OUTSIDE RECORDS SUMMARY | 2024-08-02 15:03 | XMS_ITS | Data Portability ---
Author Organization [employer] in Office Address [address] [place] [address] Assessment Encounter Date Assessment Date Assessment LastModified by Organization Details LastModified Time 07/30/2023 07/30/2023 I spent 25 minutes of iqsp-dz-luwl counselling and care coordination time with the patient. This includes reviewing medical records (medical, surgical, family and social history); updating medication and allergy information in the electronic health record; and ordering labs, medications, and education materials to continue patient care. [email or web address] Not available 07/30/2023 10:54:00 10/09/2023 10/09/2023 Today, [...] management. I spent over 15 minutes of gmqs-cb-muof counseling and care coordination time with the [...] use and link to medullary thyroid cancer. [email or web address] Not available 10/09/2023 11:33:01 Plan of Treatment Reminders Order Date Submit Date Provider Last Modified By Organization Details Last Modified Time Details Appointments None recorded. Lab testostero ne, free + total, w/ shbg, serum [address], [address] [place], [address], 5 18:23:43 CMP, serum or plasma [address], [address] [place], [address], 5 18:23:43 Referral None recorded. Procedures None recorded. Surgeries None recorded. Imaging None recorded. Medication Orders Contrave 8 mg-90 mg tablet,ext ended release 2023 024 [facility]/Pharmacy #[id number], [address] [place], [address], 4 11:51:47 Intrarosa 6.5 mg vaginal insert 2023 024 [facility]/Pharmacy #0373, [address] [place], [address], 4 10:38:34 estradiol 2 mg tablet 2023 024 [email or web address] 36 [facility]/Pharmacy #[id number], [address] [place], [address], 4 14:52:14 Patient TargetsNo targets recorded. Patient Instructions Encounter Date Encounter Id Patient Instructions Last Modified By Organization Details Last Modified Time 07/30/2023 [id number] Any requested follow-up visits are listed below in the Plan of Care section. Go directly to the [employer] service scheduler at [email or web address] to book a time. [email or web address] Not available 07/30/2023 08:36:14 It was a [...] not improved by that time, message the [facility] care team to discuss increasing your dose. [email or web address] Not available 07/30/2023 15:52:43 10/09/2023 [id number] Any requested follow-up visits are listed below in the Plan of Care section. Go directly to the [facility] museum service scheduler at [email or web address] to book a time. [email or web address] Not available 10/09/2023 08:54:20 It was such [...] be sure to have access to the [employer] richelle so we can send you messages [...] You can also call/text [phone] for the [facility] Suicide & Crisis Lifeline Glaucoma has occurred [...] under your Learning Materials tab in the [employer] Patient Portal. Here are some suggestions: Healthy [...] any questions or concerns! Kindly, SAMANTA Beard [email or web address] Not available 10/09/2023 11:51:36 Reason for Referral None Reported. Problems Name Problem SNOMED Code Status Onset Date Resolution Date Notes Provider Name and Address Organization Details Recorded Time Menopausal symptom 26156578 Active 2023 Nicole Nevarez , ROBBY [address], [place], [address], [facility] 4 08:36:15 Menopausal flushing 040651199 Active 2023 [place] [address] [address] [place] [address], [facility] 4 10:14:51 Dyspareunia 91744810 Active 2023 [place] [address] [address] [place] [address], [facility] 4 10:24:48 Weight gain 4289355 Active 2023 [place] [address] [address] [place] [address], [facility] 4 15:52:49 Obesity 646023788 Active 2023 [place] [address] [address] [place] [address], [facility] 4 11:08:21 Reduced libido 6596291 Active 2023 [place] [address] [address] [place] [address], [facility] 4 11:43:53 Mastodynia of bilateral breasts 3050857618678 9109 Active 2023 [place] [address] [address] [place] [address], [facility] 4 11:48:50 Nausea 525641401 Active 2023 [place] [address] [address] [place] [address], [facility] 4 16:11:32 Problem Notes None recorded. Procedures Surgical History Date Name Laterality Status Provider Name and Address Organization Details Recorded Time Date of Last Mammogram completed [place] [address] [address], [facility] 07/30/2023 09:59:02 3 Date of Last Colonoscopy completed Nicole Nevarez, ROBBY [address] [place], [address], [facility] 07/30/2023 09:59:02 Imaging Results None recorded. Procedure Notes None recorded. Medical Equipment None Reported. Allergies Allergen ID Allergen Name Allergen Category Reaction Reaction Severity Criticality Documentation Date Start Date Code Code System Note Provider Name and Address Organization Details Recorded Time 87546 codeine medicatio n Not available Not available Not available 07/30/2023 2670 RxNorm Nicole Nevarez , ROBBY [address] [place], [address], [facility] 4 09:58:42 52789 acetamino phen / oxycodone medicatio n Not available Not available Not available 07/30/2023 60003 3 [place] [address] [place], [address], [facility] 4 09:58:42 62835 Flagyl medicatio n Not available Not available Not available 07/30/2023 19622 6 RxNorm Nicole Nevarez , ROBBY [address] [place], [address], [facility] 4 09:58:42 Medications Name Sig Start Date Stop Date [...] Updated DateTime 07/30/2023 144.78 cm 27.7 kg/m2 [address].82 [place] [address] [place] [address] 07/30/2023 10:18:20 Date Recorded Body height Body mass index (BMI) Body weight Provider Name and Address Organization Details Last Updated DateTime 10/09/2023 144.78 cm 27.7 kg/m2 66[address].82 [place] [address] [facility] [address], [facility] 10/09/2023 11:05:56 Social History None recorded. Functional [...] SNOMED-CT Code Diagnosis ICD10 Code Diagnosis Note [id number] Nicole Nevarez NP Main Office [address] [place] [address] 07/30/2023 09:04:01 07/31/2023 09:51:58 Menopausal flushing 953809690 N95.1 -Counselin rosanna was provided to the patient on options [...] , water retention, anxiety and headache Dyspareunia 62751217 N94 .10 -The patient reports discomfort with intercours e, however, this has not affected her libido-She denies post-coita l bleeding-I n addition to increasing oral estradiol dose, will plan to have her start Intrarosa to enhance lubricatio n and minimize pain with sex-Discus sed use of O-nut ring if she experience s pain with deep penetratio n Weight gain 4197432 R63. 5 -Patient plans to upload results of recent lab work and return for a weight management consult [id number] Nicole Nevarez NP Main Office [address] [place] [address] 10/09/2023 10:05:10 10/10/2023 15:03:39 Menopausal symptom 63206098 N95.1 -VMS well-contr olled on current dose of estradiol Dyspareunia 25606206 N94 .10 -The patient reports discomfort with intercours e-She denies post-coita l bleeding-W ill plan to have her start Intrarosa to enhance lubricatio n and minimize pain with sex which has been approved by insurance- Discussed use of O-nut ring if she experience s pain with deep penetratio n Weight gain 9439847 R63. 5 -We discussed several options for [...] progress and overall health status Reduced libido 2126978 R 68.82 -The patient reports ongoing diminished libido which may be related to environmen kerwin factors, dyspareuni a, and/or hypotestos teronism-W ill plan to have the patient start Intrarosa to minimize pain during intercours e and obtain a testostero ne panel to screen for low levels Mastodynia of bilateral breasts [id number] 6934234 N64.4 -The patient reports mild but persistant [...] Recorded Advance Directives Directive None Recorded Payers Insurance Date Sequence Insurance Name Policy Number Policy Hogue Covered Member ID Hogue Member ID Guarantor Name 10/20/2023 1 ALMITA (PPO) [id number] Margarette Pringle [id number] Margarette Pringle Notes Date Note Type Note Provider Name and Address Organization Details Recorded Time 4 text/html Virtual Visit AttestationModality: VideoProvider Location: HomePatient State: [place] HPI:-Patient is a 53 year old who [...] with calcium Surgical History:-Total hysterectomy with BL iyszjjch-mgnmgvsxweji-Kvz al ligation prior to hysterectomy-Carpal tunnel surgery [...] Hysterectomy-Bone density scan: 02/2023 [place] [address] [place], [address], [facility] 09/01/2023 09:11:59 4 text/html Virtual Visit AttestationModality: VideoProvider Location: HomePatient State: [place] HPI:-Patient is a 53 year old who presents for menopausal symptom tbssps-jp-Ozt previously presented with c/o hot flashes, night [...] D3 with calciumSurgical History:-Total hysterectomy with BL stulmdlw-gdmzwhnlqvbs-Lxw al ligation prior to hysterectomy-Carpal tunnel surgery [...] has been struggling with weight management for 15 years and is seeking options for medications for weight reduction and improvement of overall health. She will be getting in July of 2024 and would like ot lose approximately 13-15lbs prior.She admits to struggling with sugar cravings and portion control. Highest Weight: 132lbs during pregnancyCurrent weight: 128lbs BMI: 27.7Goal weight: 115lbsLast time at goal weight: Before children Her comorbidities include overweight BMI. She has previously tried: Herbal Life and [...] Her most recent blood work was on 07/30/2023 and was normal with no evidence of insulin resistance, hyperlipidemia, thyroid dysfunction or vitamin deficiency. CBC and CMP were within [place] [address] [place], [address], [facility] 10/09/2023 12:02:39 OBGyn Episode No OBEpisode recorded.
== END ==
LOC: HO.CARD 13:21
PROVIDERS: PCP Internal Medicine; Visit Provider Internal Medicine Cardiovascular Disease
DX: R55 Syncope and collapse (principal); G45.9 Transient cerebral ischemic attack, unspecified
CPT/HCPCS: 93242

== ENCOUNTER → 2024-08-02 13:25 | Outpatient (BNV) | payer BC, SELFPAY | PROVIDERS: PCP Internal Medicine; Visit Provider Internal Medicine | DX: R42 Dizziness and giddiness (principal) | CPT/HCPCS: 93244 ==

== ENCOUNTER → 2024-08-31 13:53 | Outpatient (REF) | payer BC, SELFPAY ==
--- NOTE | 2024-08-31 13:56 | CA_ITS ---
Transthoracic Echocardiogram Patient (Last, First, Middle): Margarette Pringle L Gender: Female Date of : 1970 Age: 54 Procedure Date: 08/31/2024 Procedure Type: Transthoracic Echocardiogram Location: OP Height: 144.78 cm Weight: 52.16 kg BSA: 1.42 m2 Heart Rate: 64 bpm BP: 104 / 66 mmHg Automated Weaver: NAVI Referring MD: Mauor Vazquez MD Pharmacy Clinical Coordinator: Mauro Vazquez MD Symptoms: R55 - Syncope and collapse Study Quality: Adequate ECG Rhythm: Sinus Conclusions: - Essentially normal study Findings Procedure Information Contrast agent, definity, is being given per protocol without apparent complications. Left Ventricle Normal left ventricular size, thickness, and systolic function. The visually estimated ejection fraction is between 60-65%. Spectral Doppler is indicative of a normal filling pattern. Right Ventricle Normal right ventricular cavity size and systolic function. Atria Both atria are normal in size. There is no evidence of interatrial shunt by color Doppler and contrast. Aortic Valve Normal aortic valve structure and function. There is no aortic valve stenosis. There is no aortic valve regurgitation. Mitral Valve Normal mitral valve structure and function. There is trace mitral valve regurgitation. There is no mitral valve stenosis. Pulmonic Valve The pulmonic valve is likely normal. Tricuspid Valve Normal tricuspid valve structure. There is trace tricuspid valve regurgitation. The right ventricular systolic pressure is normal. The right ventricular systolic pressure is 26 mmHg. Normal right atrial pressure. There is no evidence of pulmonary hypertension. Great Vessels All visible segments of the aorta are normal in size. The pulmonary artery was not well visualized. Venous The inferior vena cava is normal in size and collapses greater than 50% with inspiration. Pericardium/Pleural There is no evidence of pericardial effusion. Measurements 2D Linear Measurements IVSd: 0.89 0.6-0.9/0.6-1.0 cm LVIDd: 3.55 3.9-5.3/4.2-5.9 cm LVIDd Index: 2.50 2.4-3.2/2.2-3.1 cm/m2 LVIDs: 2.49 2.0-3.6 cm LVPWd: 0.84 0.7-1.1 cm LA Diam: 3.30 2.7-3.8/3.0-4.0 cm LAIDs Index: 2.32 1.5-2.3 cm/m2 LV Mass: 105.86 67-162/88-224 g LV Mass Index: 74.55 43-95/49-115 g/m2 LVOT Diam: 1.80 3.0+(-)1.3 cm 2D Systolic Function EF 4C: 65.40 >55% EF 2C: 60.50 >55% EF BiP: 61.70 >55% Mitral Valve MV Pk E: 0.84 MV PK A: 0.82 MV Decel Time: 186.00 E/A: 1.00 E'Lateral: 10.70 E'Medial: 8.38 E/E' Med: 10.00 E/E' Lat: 7.90 PHT: 54.00 MVA PHT: 4.07 Decel [place]: 4.52 Aortic Valve AoV Pk Janusz: 1.41 AoV Mn Janusz: 1.01 AoV VTI: 0.32 AoV Pk Grad: 8.00 Aov Mn Grad: 5.00 SOM Cont.VTI: 1.99 LVOT LVOT Pk Janusz: 1.31 LVOT Mn Janusz: 0.83 LVOT VTI: 0.25 LVOT Pk Grad: 7.00 LVOT Mn Grad: 3.00 LVOT Diam: 1.80 LVOT Area: 2.54 Diastolic Function MV Pk E: 0.84 MV Pk A: 0.82 E/A: 1.00 E'Medial: 8.38 E/E' Med: 10.00 E' Laterial: 10.70 E/E' Lat: 7.90 Right Ventricle TAPSE (mm): 21.80 TVS' Janusz: 11.00 Tricuspid Valve TR Pk Janusz: 2.39 TR Pk Grad: 23.00 RA Press: 3.00 RVSP: 26.00 Great Vessels Aorta Sinus of Valsalva: 2.84 2.0-3.5 cm Ao Asc: 3.10 2.1-3.4 cm Updated in Other Vendor System with Status of Final Mauro Vazquez MD electronically signed on 08/31/2024 4:05:18 PM with status of Final
--- OUTSIDE RECORDS SUMMARY | 2024-08-31 14:44 | XMS_ITS | Data Portability ---
Author Organization [employer] in Office Address [address] [place] [address] Assessment Encounter Date Assessment Date Assessment LastModified by Organization Details LastModified Time 07/30/2023 07/30/2023 I spent 25 minutes of tfer-nk-fuom counselling and care coordination time with the patient. This includes reviewing medical records (medical, surgical, family and social history); updating medication and allergy information in the electronic health record; and ordering labs, medications, and education materials to continue patient care. [email or web address] Not available 07/30/2023 10:54:00 10/09/2023 10/09/2023 Today, [...] management. I spent over 15 minutes of cpmj-hu-nfgx counseling and care coordination time with the [...] use and link to medullary thyroid cancer. [email or web address] Not available 10/09/2023 11:33:01 Plan of Treatment Reminders Order Date Submit Date Provider Last Modified By Organization Details Last Modified Time Details Appointments None recorded. Lab testostero ne, free + total, w/ shbg, serum [address], [address] [place], [address], 5 18:23:43 CMP, serum or plasma [address], [address] [place], [address], 5 18:23:43 Referral None recorded. Procedures None recorded. Surgeries None recorded. Imaging None recorded. Medication Orders Contrave 8 mg-90 mg tablet,ext ended release 2023 024 [facility]/Pharmacy #[id number], [address] [place], [address], 4 11:51:47 Intrarosa 6.5 mg vaginal insert 2023 024 [facility]/Pharmacy #0373, [address] [place], [address], 4 10:38:34 estradiol 2 mg tablet 2023 024 [email or web address] 36 [facility]/Pharmacy #[id number], [address] [place], [address], 4 14:52:14 Patient TargetsNo targets recorded. Patient Instructions Encounter Date Encounter Id Patient Instructions Last Modified By Organization Details Last Modified Time 07/30/2023 [id number] Any requested follow-up visits are listed below in the Plan of Care section. Go directly to the [employer] disassembler at [email or web address] to book a time. [email or web address] Not available 07/30/2023 08:36:14 It was a pleasur e to meet you and begin to collaborate on your care, Radha! Looking forward to seeing you again soon - and please do not hesitate to reach out with any questions. We focused on these items today: 1. Your medical history, symptoms and care plan. 2. Increasing estrogen dose for breakthrough hot flashes/night sweats. 3. Incorporating vaginal DHEA for uncomfortable intercourse and libido. 4. Weight management follow-up visit- upload your lab work when you're able! MEDICATION Please see changes to your medication plan below RESOURCES Here is some more information about [...] twice a day - Get it through [facility], our partner pharmacy. Look out for an email to buy your expert recommended product in a few clicks. Note: It may take up to 4 weeks to see a benefit from black francis. If your symptoms have not improved by that time, message the [facility] care team to discuss increasing your dose. [email or web address] Not available 07/30/2023 15:52:43 10/09/2023 [id number] Any requested follow-up visits are listed below in the Plan of Care section. Go directly to the [facility] disassembler at [email or web address] to book a time. [email or web address] Not available 10/09/2023 08:54:20 It was such [...] be sure to have access to the [employer] richelle so we can send you messages [...] You can also call/text [phone] for the [facility] Suicide & Crisis Lifeline Glaucoma has occurred [...] under your Learning Materials tab in the [employer] Patient Portal. Here are some suggestions: Healthy [...] any questions or concerns! Kindly, SAMANTA Beard [email or web address] Not available 10/09/2023 11:51:36 Reason for Referral None Reported. Problems Name Problem SNOMED Code Status Onset Date Resolution Date Notes Provider Name and Address Organization Details Recorded Time Menopausal symptom 59926689 Active 2023 [place] [address] [address], [place], [address], [facility] 08:36:15 Menopausal flushing 314541044 [place] 2023 [place] [address] [place], [address], [facility] 4 10:14:51 Dyspareunia 89582399 Active 2023 [place] [address] [place], [address], [facility] 4 10:24:48 Weight gain 0916113 Active 2023 [place] [address] [place], [address], [facility] 4 15:52:49 Obesity 885543190 Active 2023 [place] [address] [place], [address], [facility] 4 11:08:21 Reduced libido 3528900 Active 2023 [place] [address] [place], [address], [facility] 4 11:43:53 Mastodynia of bilateral breasts 6020599827082 9109 Active 2023 [place] [address] [address] [address], [facility] 4 11:48:50 Nausea 931471945 Active 2023 [place] [address] [facility] [address], [facility] 4 16:11:32 Problem Notes None recorded. Procedures Surgical History Date Name Laterality Status Provider Name and Address Organization Details Recorded Time 4 Date of Last Mammogram completed [place]arez [place] [address] [address], [facility] 07/30/2023 09:59:02 3 Date of Last Colonoscopy completed Nicole Nevarez, ROBBY [address] [address] [place], [place], , [facility] 07/30/2023 09:59:02 Imaging Results None recorded. Procedure Notes None recorded. Medical Equipment None Reported. Allergies Allergen ID Allergen Name Allergen Category Reaction Reaction Severity Criticality Documentation Date Start Date Code Code System Note Provider Name and Address Organization Details Recorded Time 87550 codeine medicatio n Not available Not available Not available 07/30/2023 2670 RxNorm Nicole Nevarez , ROBBY [address] [place], [place], [address], [facility] 4 09:58:42 45449 acetamino phen / oxycodone medicatio n Not available Not available Not available 07/30/2023 [address]22 3 [place] [address] [place], 2, [facility] 4 09:58:42 01213 Flagyl medicatio n Not available Not available Not available 07/30/2023 66005 6 RxNorm Nicole Nevarez , ROBBY [address] [place], 2, [facility] 4 09:58:42 Medications Name Sig Start [...] Updated DateTime 07/30/2023 144.78 cm 27.7 kg/m2 28[address].82 [place] [address] [facility] [address] 07/30/2023 10:18:20 Date Recorded Body height Body mass index (BMI) Body weight Provider Name and Address Organization Details Last Updated DateTime 10/09/2023 144.78 cm 27.7 kg/m2 6[address].82 [place] [address] [facility] [address] 10/09/2023 11:05:56 Social History None recorded. Functional [...] SNOMED-CT Code Diagnosis ICD10 Code Diagnosis Note [id number] Nicole Nevarez NP Main Office [address] [place] [address] 07/30/2023 09:04:01 07/31/2023 09:51:58 Menopausal flushing 491658101 N95.1 -Linda marte was provided to the patient on options [...] , water retention, anxiety and headache Dyspareunia 84307147 N94 .10 -The patient reports discomfort with intercours e, however, this has not affected her libido-She denies post-coita l bleeding-I n addition to increasing oral estradiol dose, will plan to have her start Intrarosa to enhance lubricatio n and minimize pain with sex-Discus sed use of O-nut ring if she experience s pain with deep penetratio n Weight gain 2885669 R63. 5 -Patient plans to upload results of recent lab work and return for a weight management consult 190101 Nicole Nevarez NP Main Office [address] [place] [address] 10/09/2023 10:05:10 10/10/2023 15:03:39 Menopausal symptom 88396089 N95.1 -VMS well-contr olled on current dose of estradiol Dyspareunia 02789527 N94 .10 -The patient reports discomfort with intercours e-She denies post-coita l bleeding-W ill plan to have her start Intrarosa to enhance lubricatio n and minimize pain with sex which has been approved by insurance- Discussed use of O-nut ring if she experience s pain with deep penetratio n Weight gain 6730540 R63. 5 -We discussed several options for weight management including Semaglutid es, Tirzepatid es, Metformin, Contrave and Berberine and their associated risks, benefits and potential side effects.-T he patient's preference is Contrave to reduce appetite and cravings. Discussed the possibilit y of using separate Wellbutrin +Naltrexon e if insurance does not approve Contrave-C ounseling provided on the possible side effects of [...] progress and overall health status Reduced libido 9291516 R 68.82 -The patient reports ongoing diminished libido which may be related to environmen kerwin factors, dyspareuni a, and/or hypotestos teronism-W ill plan to have the patient start Intrarosa to minimize pain during intercours e and obtain a testostero ne panel to screen for low levels Mastodynia of bilateral breasts 6172860929 1558257 N64.4 -The patient reports mild but persistant [...] ID Guarantor Name 10/20/2023 1 ALMITA (PPO) [id number] Margarette Pringle [id number] Margarette Pringle Notes Date Note Type Note [...] with calcium Surgical History:-Total hysterectomy with BL uudxqprc-erzhhtzgitvw-Vhp al ligation prior to hysterectomy-Carpal tunnel surgery [...] Hysterectomy-Bone density scan: 02/2023 [place] [address] [place], [address], [facility] 09/01/2023 09:11:59 4 text/html Virtual Visit AttestationModality: VideoProvider Location: HomePatient State: [place] HPI:-Patient is a 53 year old who presents for menopausal symptom yuhbma-cs-Hyn previously presented with c/o hot flashes, night [...] D3 with calciumSurgical History:-Total hysterectomy with BL hwdshqkv-zarmsldyvytn-Pir al ligation prior to hysterectomy-Carpal tunnel surgery [...] were within [place] [address] [place], [address], [facility] 10/09/2023 12:02:39 OBGyn Episode No OBEpisode recorded.
== END ==
LOC: HO.CARD 13:53
PROVIDERS: PCP Internal Medicine; Visit Provider Internal Medicine Cardiovascular Disease
DX: R55 Syncope and collapse (principal); G45.9 Transient cerebral ischemic attack, unspecified
CPT/HCPCS: 93306; Q9957

== ENCOUNTER → 2024-08-31 13:56 | Outpatient (BNV) | payer BC, SELFPAY | PROVIDERS: PCP Internal Medicine; Visit Provider Internal Medicine Cardiovascular Disease | DX: R55 Syncope and collapse (principal) | CPT/HCPCS: 93306 ==